=== PATIENT | male | born 1960 | race Caucasian/White ===

== ENCOUNTER → 2018-12-09 11:25 | Outpatient (CLI) | payer OTHER, BC, SELFPAY | PROVIDERS: Family Provider Nurse Practitioner Primary Care; PCP Nurse Practitioner Primary Care; Referring Provider Urology; Visit Provider Urology | DX: Z12.5 Encounter for screening for malignant neoplasm of prostate (principal) | CPT/HCPCS: 36415; 84153; G0103 ==

== ENCOUNTER → 2019-04-12 | Outpatient (CLI) | payer BC, SELFPAY ==
[2019-04-12 12:34] LABS: Absolute Lymphocyte Count 1.37 X10^3/ul (0.83-4.51); Absolute Neutrophil Count 4.2 X10^3/uL (2.0-7.7); Basophil# 0.05 X10^3/uL; Basophil% 0.7 % (0-1); Eosinophil# 0.42 X10^3/uL; Hematocrit 43.9 % (40-54); Hemoglobin 14.4 g/dl (13.0-16.5); Lymphocyte # 1.37 X10^3/ul (4.0); Lymphocyte % 19.5 % (19-41); Mean Corp Hgb Conc 32.8 g/gl (32-36); Mean Corpuscular Hgb 30.1 pg (27.0-32.0); Mean Corpuscular Volume 91.6 fL (80-94); Mean Platelet Vol. 9.7 fl (6.2-12.0); Monocyte# 0.94 X10^3/uL; Monocyte% 13.4 % (0-10); Platelet Count 271 K/mm3 (150-450); RBC Distribution Width CV 13.3 % (11.6-14.6); RBC Distribution Width SD 44.2 fl (35.1-43.9); Red Blood Count 4.79 M/mm3 (4.6-6.2)
[2019-04-12 12:42] LABS: POSITIVE COUNT NO; POSITIVE DIFFERENTIAL NO; POSITIVE MORPHOLOGY NO
[2019-04-12 13:00] LABS: Vitamin B12 507 pg/mL (211-911); Vitamin D,25 Hydroxy 24.4 ng/mL (29.95-100.01)
[2019-04-12 13:17] LABS: ALB/GLOB Ratio 1.1 RATIO (0.9-2.4); AST(SGOT) 28 U/L (15-37); Alanine Aminotransfer ALT/SGPT 50 U/L (16-61); Albumin, Serum 3.7 g/dL (3.2-5.0); Alkaline Phosphatase 94 U/L (45-117); Anion Gap 11 (5-15); BUN 20 mg/dL (7-18); BUN/Creat Ratio 21.1 RATIO (10-20); Calcium,Total 9.5 mg/dL (8.5-10.1); Chloride 106 mmol/L (98-107); Cholesterol 166 mg/dL (200); Creatinine, Serum 0.95 mg/dL (0.70-1.30); EST Glomerular Filtration Rate 87 mL/min (>60); Est Glom Filt Rate - Afr Amer 105 mL/min (>60); Globulin 3.4 g/dL (2.2-4.2); Glucose 104 mg/dL (74-106); High Density Lipoprotein 40 mg/dL; Potassium 4.3 mmol/L (3.5-5.1); Protein, Total 7.1 g/dL (6.4-8.2); Sodium Level 140 mmol/L (136-145); T4 Free Direct 1.13 ng/dL (0.76-1.46); Thyroid Stim Hormone (TSH) 1.33 uIU/mL (0.358-3.74); Triglycerides 111 mg/dL; Very Low Density Lipoprotein 22 mg/dL (5-40)
== END | disposition home or self-care (01) ==
LOC: MFPLAB 09:33
PROVIDERS: Family Provider Nurse Practitioner Primary Care; PCP Nurse Practitioner Primary Care; Visit Provider Family Medicine
DX: I10 Essential (primary) hypertension (principal); E66.9 Obesity, unspecified; E04.1 Nontoxic single thyroid nodule; R53.83 Other fatigue
CPT/HCPCS: 36415; 80053; 80061; 82306; 82607; 84439; 84443; 85025

== ENCOUNTER → 2019-04-14 | Outpatient (CLI) | payer OTHER, BC, SELFPAY ==
--- NOTE | 2019-04-14 12:22 | US_ITS ---
STUDY: THYROID ULTRASOUND REASON FOR EXAM: Male, 58 years old. Nodule TECHNIQUE: Ultrasound evaluation of the thyroid was performed with real-time and static alvarez-scale imaging. COMPARISON: None. FINDINGS: RIGHT LOBE: The right lobe of the thyroid gland measures 4.6 x 1.8 x 1.8 cm. There is a homogeneous echotexture. There is a 7 mm solid nodule in the right lower pole. LEFT LOBE: The left lobe of the thyroid gland measures 4.6 x 1.5 x 2.1 cm. There is a homogeneous echotexture. There is a 6.5 mm solid nodule in the right lower pole. ISTHMUS: The isthmus measures 4 mm . The regional lymph nodes are normal. US/Thyroid IMPRESSION: Bilateral subcentimeter nodules for which annual follow-up should be adequate. Electronically Signed: Maynor Cosby MD at 16:10 EDT , Service support ,
== END | disposition home or self-care (01) ==
LOC: US 12:21
PROVIDERS: Family Provider Family Medicine; PCP Family Medicine; Referring Provider Family Medicine; Visit Provider Family Medicine
DX: E04.1 Nontoxic single thyroid nodule (principal)
CPT/HCPCS: 76536

== ENCOUNTER → 2019-05-12 | Outpatient (CLI) | payer OTHER, BC, SELFPAY ==
[2019-05-12 12:39] LABS: Hemoglobin A1c 5.8 % (4.2-6.3)
== END | disposition home or self-care (01) ==
LOC: MFPLAB 10:41
PROVIDERS: Family Provider Family Medicine; PCP Family Medicine; Referring Provider Family Medicine; Visit Provider Family Medicine
DX: R73.09 Other abnormal glucose (principal)
CPT/HCPCS: 36415; 83036

== ENCOUNTER 2020-01-12 20:59 | Emergency (ER) | payer OTHER, BC, SELFPAY ==
[2020-01-12 21:01] VITALS: BP 157/82; PULSE 74; RESP 16; TEMP 36.6; O2SAT 94; BMI 36.6
--- NOTE | 2020-01-12 21:35 | RAD_ITS ---
STUDY: X-RAY - RIGHT HAND REASON FOR EXAM: Male, 59 years old. PT TRIPPED OVER A BOX FAN AT WORK AND INJURED THE RIGHT HAND THAT HAS PREVIOUS SURGERIES ON IT; PAIN IN THUMB. TECHNIQUE: 3 view(s) of the hand. COMPARISON: None. FINDINGS: There is significant radiocarpal osteoarthrosis with this articular and osteochondral defects of the distal radius. There is bony fusion of the carpal bones with metallic plate and screws. There is soft tissue edema of the thumb. There are multiple 2 mm and smaller ossific densities adjacent to the distal aspect of the first metacarpal. 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 This should be correlated with point tenderness. Small foreign bodies also cannot be excluded Electronically Signed: [place], at 21:56 EDT Tel , Service support ,
--- NOTE | 2020-01-12 22:19 | ED.VISSUMM ---
- ER Visit Summary Date of Service: 01/12/20 Chief Complaint: Thumb injury History of Present Illness: The patient is a 59 M who sustained a mechanical fall and injured his right thumb. He has a history of wrist fusion and thumb surgery remotely. Physical Examination: Afebrile and vital signs unremarkable. Some tenderness and edema at the base of the thumb. Skin intact. Neurovascular intact distally. Otherwise exam unremarkable. Test Results: X-ray show possible tiny avulsion fractures at the area of his tenderness at the base of the proximal phalanx. Emergency Department Course and Treatment: Patient initially declined pain medicine. Ice was applied. X-rays as above. He was placed in a thumb spica splint and referred to his hand surgeon for follow-up. Workman's Compensation paperwork was completed. Treatment Plan: As above Disposition: Discharge Impression: Fracture right thumb This note was generated with [employer] dictation software. It may contain incorrect words, spelling, and punctuation that were not noted in review of the chart prior to signing ED Disposition - Plan for ED Patient: Referrals: Rajendra Gentile MD [Primary Care Provider] -
--- NOTE | 2020-01-12 22:21 | ED.DEP ---
ED Disposition - Plan for ED Patient: Instructions: ED THUMB FRACTURE Prescriptions: Oxycodone HCl/Acetaminophen [Percocet 5/325] 1 tab PO Q6H PRN PRN 3 Days #12 tab PRN Reason: Pain Prescription Printed Referrals: [facility] [GROUP OF PHYSICIANS] - Additional Instructions: follow up with your hand surgeon
[2020-01-12] MEDS: HYDROcodone Bitartrate/Apap 5/325 Tablet PO (22:30)
[2020-01-12 22:35] VITALS: BP 149/60; PULSE 79; RESP 18; O2SAT 97
== END 2020-01-12 22:36 | disposition home or self-care (01) ==
PROVIDERS: Emergency Provider Emergency Medicine; PCP Family Medicine
DX: S62.511A Displaced fracture of proximal phalanx of right thumb, initial encounter for closed fracture (principal); W01.0XXA Fall on same level from slipping, tripping and stumbling without subsequent striking against object, initial encounter; Y93.9 Activity, unspecified; Y92.9 Unspecified place or not applicable; Y99.0 Civilian activity done for income or pay; Z87.891 Personal history of nicotine dependence
CPT/HCPCS: 73130; 99283

== ENCOUNTER → 2020-02-28 | Outpatient (CLI) | payer OTHER, BC, SELFPAY ==
[2020-02-28 12:03] LABS: Absolute Lymphocyte Count 1.63 X10^3/uL (0.83-4.51); Absolute Neutrophil Count 4.6 X10^3/uL (2.0-7.7); Basophil# 0.07 X10^3/uL; Basophil% 0.9 % (0-1); Eosinophils% 6.6 % (0-5); Hematocrit 44.2 % (40-54); Hemoglobin 14.1 g/dL (13.0-16.5); Lymphocyte # 1.63 X10^3/ul (4.0); Lymphocyte % 21.4 % (19-41); Mean Corp Hgb Conc 31.9 g/dL (32-36); Mean Corpuscular Hgb 30.2 pg (27.0-32.0); Mean Corpuscular Volume 94.6 fL (80-94); Mean Platelet Vol. 9.8 fl (6.2-12.0); Monocyte# 0.82 X10^3/uL; Monocyte% 10.7 % (0-10); NRBC Flagged by Analyzer 0 % (0-5); Neutrophil # 4.55 X10^3/uL (2.7-7.7); Neutrophil % 59.6 % (47-70); Platelet Count 260 K/mm3 (150-450); RBC Distribution Width SD 44.8 fl (35.1-43.9); Red Blood Count 4.67 M/mm3 (4.6-6.2); White Blood Count 7.6 K/mm3 (4.4-11.0)
[2020-02-28 12:17] LABS: ALB/GLOB Ratio 1.1 RATIO (0.9-2.4); AST(SGOT) 27 U/L (15-37); Alanine Aminotransfer ALT/SGPT 46 U/L (16-61); Albumin, Serum 3.4 g/dL (3.2-5.0); Alkaline Phosphatase 96 U/L (45-117); Anion Gap 6 (5-15); BUN 16 mg/dL (7-18); BUN/Creat Ratio 18.2 RATIO (10-20); Calcium,Total 9.3 mg/dL (8.5-10.1); Chloride 109 mmol/L (98-107); Creatinine, Serum 0.88 mg/dL (0.70-1.30); EST Glomerular Filtration Rate 95 mL/min (>60); Est Glom Filt Rate - Afr Amer 115 mL/min (>60); Globulin 3.2 g/dL (2.2-4.2); Glucose 106 mg/dL (74-106); Potassium 4.5 mmol/L (3.5-5.1); Protein, Total 6.6 g/dL (6.4-8.2); Sodium Level 140 mmol/L (136-145)
[2020-02-28 12:19] LABS: Hemoglobin A1c 6.2 % (4.2-6.3)
== END | disposition home or self-care (01) ==
LOC: LABSPEC 08:33
PROVIDERS: PCP Family Medicine; Visit Provider Family Medicine
DX: I10 Essential (primary) hypertension (principal); R73.02 Impaired glucose tolerance (oral); E55.9 Vitamin D deficiency, unspecified
CPT/HCPCS: 36415; 80053; 82306; 83036; 85025

== ENCOUNTER → 2020-03-02 | Outpatient (CLI) | payer OTHER, BC, SELFPAY ==
[2020-03-02 16:02] LABS: Vitamin D,25 Hydroxy 32.1 ng/mL
== END | disposition home or self-care (01) ==
LOC: MFPLAB 14:12
PROVIDERS: PCP Family Medicine; Visit Provider Family Medicine
DX: E55.9 Vitamin D deficiency, unspecified (principal)
CPT/HCPCS: 82306

== ENCOUNTER → 2020-03-22 | Outpatient (CLI) | payer OTHER, BC, SELFPAY ==
--- NOTE | 2020-03-22 08:48 | US_ITS ---
STUDY: THYROID ULTRASOUND REASON FOR EXAM: Male, 59 years old. NODULES TECHNIQUE: Ultrasound evaluation of the thyroid was performed with real-time and static alvarez-scale imaging. COMPARISON: Comparison is made with prior examination dated April 14, 2019. FINDINGS: RIGHT LOBE: The right lobe of the thyroid gland measures 5 cm x 1.9 cm x 1.5 cm. There is a homogeneous echotexture. There is a 6 mm x 5 mm x 4 mm hypoechoic solid nodule in the lower pole of the right lobe. There is evidence of intranodular vascularization. There has been no change. LEFT LOBE: The left lobe of the thyroid gland measures 4.8 cm x 1.3 cm x 1.6 cm. There is a homogeneous echotexture. There is a 6 mm x 5 mm x 4 mm hypoechoic solid nodule in the midpole of the left lobe with internal nodular vascularization. This is unchanged. ISTHMUS: The isthmus measures 2.0 mm. The regional lymph nodes are normal. US/Thyroid IMPRESSION: Stable examination with solitary subcentimeter nodule in the right and left lobes of the thyroid. Electronically Signed: Raul Cha, at 9:55 EDT , Service support ,
== END | disposition home or self-care (01) ==
LOC: US 08:43
PROVIDERS: PCP Family Medicine; Referring Provider Family Medicine; Visit Provider Family Medicine
DX: E04.1 Nontoxic single thyroid nodule (principal)
CPT/HCPCS: 76536

== ENCOUNTER → 2020-08-09 | Outpatient (CLI) | payer OTHER, BC, SELFPAY | END | disposition home or self-care (01) | LOC: LABSPEC 10:54 | PROVIDERS: PCP Family Medicine; Referring Provider Family Medicine; Visit Provider Family Medicine | DX: R35.0 Frequency of micturition (principal) | CPT/HCPCS: 87086 ==

== ENCOUNTER → 2021-01-04 09:25 | Outpatient (CLI) | payer OTHER, SELFPAY ==
[2021-01-04 10:14] LABS: Absolute Lymphocyte Count 1.82 X10^3/uL (0.83-4.51); Absolute Neutrophil Count 4.7 X10^3/uL (2.0-7.7); Basophil# 0.05 X10^3/uL; Basophil% 0.6 % (0-1); Eosinophil# 0.47 X10^3/uL; Eosinophils% 5.9 % (0-5); Hematocrit 45.9 % (40-54); Hemoglobin 14.8 g/dL (13.0-16.5); Lymphocyte # 1.82 X10^3/ul (4.0); Mean Corp Hgb Conc 32.2 g/dL (32-36); Mean Corpuscular Volume 93.1 fL (80-94); Mean Platelet Vol. 9.3 fl (6.2-12.0); Monocyte# 0.88 X10^3/uL; Monocyte% 11.1 % (0-10); NRBC Flagged by Analyzer 0 % (0-5); Neutrophil # 4.65 X10^3/uL (2.7-7.7); Neutrophil % 58.8 % (47-70); Platelet Count 285 K/mm3 (150-450); RBC Distribution Width CV 12.8 % (11.6-14.6); RBC Distribution Width SD 43.8 fl (35.1-43.9); Red Blood Count 4.93 M/mm3 (4.6-6.2); White Blood Count 7.9 K/mm3 (4.4-11.0)
[2021-01-04 10:45] LABS: Hemoglobin A1c 5.5 % (3.8-5.6)
[2021-01-04 10:53] LABS: Vitamin D,25 Hydroxy 31.4 ng/mL
[2021-01-04 11:05] LABS: ALB/GLOB Ratio 1.2 RATIO (0.9-2.4); AST(SGOT) 25 U/L (15-37); Alanine Aminotransfer ALT/SGPT 49 U/L (16-61); Albumin, Serum 3.8 g/dL (3.2-5.0); Alkaline Phosphatase 109 U/L (45-117); Anion Gap 7 (5-15); BUN 15 mg/dL (7-18); BUN/Creat Ratio 16.6 RATIO (10-20); Calcium,Total 9.7 mg/dL (8.5-10.1); Chloride 103 mmol/L (98-107); EST Glomerular Filtration Rate 91 mL/min (>60); Est Glom Filt Rate - Afr Amer 110 mL/min (>60); Globulin 3.3 g/dL (2.2-4.2); Glucose 109 mg/dL (74-106); Protein, Total 7.1 g/dL (6.4-8.2); Sodium Level 136 mmol/L (136-145); Thyroid Stim Hormone (TSH) 3.01 uIU/mL (0.358-3.74)
== END ==
PROVIDERS: PCP Family Medicine; Referring Provider Family Medicine; Visit Provider Family Medicine
DX: I10 Essential (primary) hypertension (principal); E55.9 Vitamin D deficiency, unspecified; E04.1 Nontoxic single thyroid nodule; R73.02 Impaired glucose tolerance (oral)
CPT/HCPCS: 36415; 80053; 82306; 83036; 84443; 85025

== ENCOUNTER → 2021-08-20 12:31 | Outpatient (CLI) | payer OTHER, SELFPAY | PROVIDERS: PCP Family Medicine; Referring Provider Family Medicine; Visit Provider Family Medicine | DX: Z12.5 Encounter for screening for malignant neoplasm of prostate (principal) | CPT/HCPCS: 36415; 84153; G0103 ==

== ENCOUNTER 2021-10-25 10:27 | Outpatient (CLI) | payer OTHER, BC, SELFPAY ==
[2021-10-25 10:39] LABS: Bacteria 0 SEEN /hpf (None Seen); Mucous, Urine 0 SEEN /hpf (<or=2+); Red Blood Cells-Urine 0 SEEN /hpf (0-5); White Blood Cells 0 SEEN /hpf (0-5)
[2021-10-25 12:38] LABS: Absolute Lymphocyte Count 1.64 X10^3/uL (0.83-4.51); Absolute Neutrophil Count 5.1 X10^3/uL (2.0-7.7); Basophil# 0.05 X10^3/uL; Basophil% 0.6 % (0-1); Color, Urine Yellow (Yellow); Eosinophil# 0.36 X10^3/uL; Eosinophils% 4.5 % (0-5); Glucose, Dipstick Normal (Normal); Hematocrit 44.6 % (40-54); Hemoglobin 14.3 g/dL (13.0-16.5); Ketone-Dipstick Negative (Negative); Leukocyte Esterase-Dipstick Negative /ul (Negative); Lymphocyte # 1.64 X10^3/ul (0.83-4.51); Lymphocyte % 20.3 % (19-41); Mean Corp Hgb Conc 32.1 g/dL (32-36); Mean Corpuscular Hgb 30.2 pg (27.0-32.0); Mean Corpuscular Volume 94.3 fL (80-94); Mean Platelet Vol. 9.4 fl (6.2-12.0); Monocyte# 0.87 X10^3/uL; Monocyte% 10.8 % (0-10); NRBC Flagged by Analyzer 0 % (0-5); Neutrophil # 5.11 X10^3/uL (2.7-7.7); Neutrophil % 63.3 % (47-70); Nitrite-Dipstick Negative (Negative); Occult Blood-Urine Negative /ul (Negative); Platelet Count 285 K/mm3 (150-450); Protein-Dipstick Negative (Negative); RBC Distribution Width CV 12.9 % (11.6-14.6); RBC Distribution Width SD 44.9 fl (35.1-43.9); Red Blood Count 4.73 M/mm3 (4.6-6.2); Urine Bilirubin Dipstick Negative (Negative); Urine Clarity Clear (Clear); Urine Urobilinogen Normal (Normal); White Blood Count 8.1 K/mm3 (4.4-11.0)
[2021-10-25 12:45] LABS: Squamous Epithelial Cells - UA 0-5 SEEN /hpf (0-5)
[2021-10-25 13:15] LABS: Vitamin D,25 Hydroxy 39.1 ng/mL
[2021-10-25 13:23] LABS: ALB/GLOB Ratio 1.2 RATIO (0.9-2.4); AST(SGOT) 18 U/L (15-37); Alanine Aminotransfer ALT/SGPT 34 U/L (16-61); Albumin, Serum 3.8 g/dL (3.2-5.0); Alkaline Phosphatase 95 U/L (45-117); Anion Gap 6 (5-15); BUN 21 mg/dL (7-18); BUN/Creat Ratio 22.1 RATIO (10-20); Chloride 105 mmol/L (98-107); Cholesterol 177 mg/dL (200); Creatinine, Serum 0.95 mg/dL (0.70-1.30); EST Glomerular Filtration Rate 86 mL/min (>60); Est Glom Filt Rate - Afr Amer 104 mL/min (>60); Globulin 3.3 g/dL (2.2-4.2); Glucose 110 mg/dL (74-106); High Density Lipoprotein 38 mg/dL; Potassium 4.4 mmol/L (3.5-5.1); Protein, Total 7.1 g/dL (6.4-8.2); Sodium Level 138 mmol/L (136-145); Triglycerides 112 mg/dL; Very Low Density Lipoprotein 22 mg/dL (5-40)
[2021-10-25 13:26] LABS: Hemoglobin A1c 5.3 % (3.8-5.6)
== END 2021-10-25 23:59 | disposition short-term general hospital (02) ==
LOC: MFPLAB 10:30
PROVIDERS: PCP Family Medicine; Referring Provider Family Medicine; Visit Provider Family Medicine
DX: I10 Essential (primary) hypertension (principal); R73.02 Impaired glucose tolerance (oral); E55.9 Vitamin D deficiency, unspecified
CPT/HCPCS: 36415; 80053; 80061; 81001; 82306; 83036; 85025

== ENCOUNTER 2021-10-31 12:57 | Outpatient (CLI) | payer OTHER, BC, SELFPAY ==
--- NOTE | 2021-10-31 13:02 | US_ITS ---
STUDY: THYROID ULTRASOUND REASON FOR EXAM: Male, 61 years old. NODULE TECHNIQUE: Ultrasound evaluation of the thyroid was performed with real-time and static alvarez-scale imaging. COMPARISON: Comparison is made with prior study dated 03/22/2020. FINDINGS: RIGHT LOBE: The right lobe of the thyroid gland measures 4.5 cm x 2 cm x 1.9 cm. There is a homogeneous echotexture. There is an 8 mm x 6 mm x 5 mm solid hypoechoic nodule in the lower pole. This is unchanged. LEFT LOBE: The left lobe of the thyroid gland measures 4.8 cm x 1.4 cm x 1.7 cm. There is a homogeneous echotexture. There is a 7 mm x 6 mm x 6 mm solid hypoechoic nodule in the upper pole. This is essentially unchanged. ISTHMUS: The isthmus measures 3.1 mm. The regional lymph nodes are normal. US/Thyroid IMPRESSION: Stable examination with bilateral subcentimeter solid thyroid nodule. Electronically Signed: Raul Cha MD at 14:47 EST , Service support ,
== END 2021-10-31 23:59 | disposition short-term general hospital (02) ==
LOC: US 12:59
PROVIDERS: PCP Family Medicine; Referring Provider Family Medicine; Visit Provider Family Medicine
DX: E04.1 Nontoxic single thyroid nodule (principal)
CPT/HCPCS: 76536

== ENCOUNTER 2022-01-23 10:11 | Outpatient (CLI) | payer OTHER, BC, SELFPAY ==
--- NOTE | 2022-01-23 10:24 | RAD_ITS ---
STUDY: X-RAY CHEST REASON FOR EXAM: Male, 61 years old. RHONCHI TECHNIQUE: PA and lateral views of the chest. COMPARISON: None. FINDINGS: Lungs are hyperexpanded with increased retrosternal clear space but no airspace consolidation. There is no demonstrated pleural abnormality. Normal size heart. Normal mediastinum and kelly. Normal visualized pulmonary arteries. Normal visualized aortic arch and descending thoracic aorta. Normal visualized thoracic spine. Normal visualized ribs, clavicles, and shoulders. There is no demonstrated abnormality of the visualized soft tissue structures of the upper abdomen. RAD/Chest PA and Lateral IMPRESSION: No airspace consolidation or pleural effusion. Hyperinflation suggesting chronic obstructive airway disease. Electronically Signed: Don Whitley MD ([place]) at 7:37 EDT ,
[2022-01-23 12:04] LABS: Absolute Lymphocyte Count 1.37 X10^3/uL (0.83-4.51); Absolute Neutrophil Count 4.3 X10^3/uL (2.0-7.7); Basophil# 0.06 X10^3/uL; Basophil% 0.9 % (0-1); Eosinophils% 5.9 % (0-5); Hematocrit 43.4 % (40-54); Hemoglobin 14.1 g/dL (13.0-16.5); Lymphocyte # 1.37 X10^3/ul (0.83-4.51); Lymphocyte % 20.1 % (19-41); Mean Corp Hgb Conc 32.5 g/dL (32-36); Mean Corpuscular Hgb 31.1 pg (27.0-32.0); Mean Corpuscular Volume 95.6 fL (80-94); Mean Platelet Vol. 9.6 fl (6.2-12.0); Monocyte# 0.66 X10^3/uL; Monocyte% 9.7 % (0-10); NRBC Flagged by Analyzer 0 % (0-5); Neutrophil % 63.1 % (47-70); Platelet Count 237 K/mm3 (150-450); RBC Distribution Width SD 45.7 fl (35.1-43.9); Red Blood Count 4.54 M/mm3 (4.6-6.2); White Blood Count 6.8 K/mm3 (4.4-11.0)
[2022-01-23 12:21] LABS: Hemoglobin A1c 5.3 % (3.8-5.6)
[2022-01-23 12:26] LABS: ALB/GLOB Ratio 1.3 RATIO (0.9-2.4); AST(SGOT) 20 U/L (15-37); Alanine Aminotransfer ALT/SGPT 34 U/L (16-61); Albumin, Serum 3.8 g/dL (3.2-5.0); Alkaline Phosphatase 82 U/L (45-117); Anion Gap 3 (5-15); BUN 19 mg/dL (7-18); Calcium,Total 9.4 mg/dL (8.5-10.1); Chloride 108 mmol/L (98-107); Cholesterol 167 mg/dL (200); Creatinine, Serum 0.79 mg/dL (0.70-1.30); EST Glomerular Filtration Rate 106 mL/min (>60); Est Glom Filt Rate - Afr Amer 128 mL/min (>60); Glucose 115 mg/dL (74-106); High Density Lipoprotein 40 mg/dL; Potassium 4.2 mmol/L (3.5-5.1); Protein, Total 6.8 g/dL (6.4-8.2); Sodium Level 137 mmol/L (136-145); Thyroid Stim Hormone (TSH) 1.44 uIU/mL (0.358-3.74); Triglycerides 70 mg/dL; Very Low Density Lipoprotein 14 mg/dL (5-40)
== END 2022-01-23 23:59 | disposition home or self-care (01) ==
PROVIDERS: PCP Family Medicine; Referring Provider Family Medicine; Visit Provider Family Medicine
DX: R09.89 Other specified symptoms and signs involving the circulatory and respiratory systems (principal); I10 Essential (primary) hypertension; R73.02 Impaired glucose tolerance (oral)
CPT/HCPCS: 36415; 71046; 80053; 80061; 83036; 84443; 85025

== ENCOUNTER → 2022-05-20 | Outpatient (CLI) | payer OTHER, BC, SELFPAY ==
[2022-05-20 12:41] LABS: Absolute Lymphocyte Count 1.79 X10^3/uL (0.83-4.51); Absolute Neutrophil Count 4.3 X10^3/uL (2.0-7.7); Basophil# 0.06 X10^3/uL; Basophil% 0.8 % (0-1); Eosinophil# 0.72 X10^3/uL; Eosinophils% 9.4 % (0-5); Hematocrit 43.5 % (40-54); Hemoglobin 13.8 g/dL (13.0-16.5); Lymphocyte # 1.79 X10^3/ul (0.83-4.51); Lymphocyte % 23.3 % (19-41); Mean Corp Hgb Conc 31.7 g/dL (32-36); Mean Corpuscular Hgb 30.7 pg (27.0-32.0); Mean Corpuscular Volume 96.7 fL (80-94); Mean Platelet Vol. 9.7 fl (6.2-12.0); Monocyte# 0.82 X10^3/uL; Monocyte% 10.7 % (0-10); NRBC Flagged by Analyzer 0 % (0-5); Neutrophil # 4.26 X10^3/uL (2.7-7.7); Neutrophil % 55.5 % (47-70); Platelet Count 271 K/mm3 (150-450); RBC Distribution Width CV 13.2 % (11.6-14.6); RBC Distribution Width SD 47.4 fl (35.1-43.9); White Blood Count 7.7 K/mm3 (4.4-11.0)
[2022-05-20 12:56] LABS: Vitamin D,25 Hydroxy 56.6 ng/mL
[2022-05-20 12:57] LABS: Hemoglobin A1c 5.3 % (3.8-5.6)
[2022-05-20 13:03] LABS: ALB/GLOB Ratio 1.1 RATIO (0.9-2.4); AST(SGOT) 21 U/L (15-37); Alanine Aminotransfer ALT/SGPT 31 U/L (16-61); Albumin, Serum 3.5 g/dL (3.2-5.0); Alkaline Phosphatase 80 U/L (45-117); Anion Gap 6 (5-15); BUN 20 mg/dL (7-18); BUN/Creat Ratio 20.9 RATIO (10-20); Calcium,Total 9.6 mg/dL (8.5-10.1); Chloride 107 mmol/L (98-107); Cholesterol 174 mg/dL (200); Creatinine, Serum 0.96 mg/dL (0.70-1.30); EST Glomerular Filtration Rate 85 mL/min (>60); Est Glom Filt Rate - Afr Amer 103 mL/min (>60); Globulin 3.1 g/dL (2.2-4.2); Glucose 110 mg/dL (74-106); High Density Lipoprotein 39 mg/dL; Potassium 4.4 mmol/L (3.5-5.1); Protein, Total 6.6 g/dL (6.4-8.2); Sodium Level 138 mmol/L (136-145); Thyroid Stim Hormone (TSH) 1.34 uIU/mL (0.358-3.74); Triglycerides 102 mg/dL; Very Low Density Lipoprotein 20 mg/dL (5-40)
== END | disposition home or self-care (01) ==
LOC: MFPLAB 10:19
PROVIDERS: PCP Family Medicine; Referring Provider Family Medicine; Visit Provider Family Medicine
DX: I10 Essential (primary) hypertension (principal); R73.02 Impaired glucose tolerance (oral); E55.9 Vitamin D deficiency, unspecified
CPT/HCPCS: 36415; 80053; 80061; 82306; 83036; 84443; 85025

== ENCOUNTER → 2022-11-18 | Outpatient (CLI) | payer OTHER, BC, SELFPAY ==
[2022-11-18 08:23] LABS: Bacteria 0 SEEN /hpf (None Seen); Red Blood Cells-Urine 0 SEEN /hpf (0-5); Squamous Epithelial Cells - UA 0 SEEN /hpf (0-5); White Blood Cells 0 SEEN /hpf (0-5)
[2022-11-18 10:07] LABS: Absolute Lymphocyte Count 1.75 X10^3/uL (0.83-4.51); Absolute Neutrophil Count 3.8 X10^3/uL (2.0-7.7); Basophil# 0.07 X10^3/uL; Eosinophil# 0.57 X10^3/uL; Eosinophils% 8.2 % (0-5); Hemoglobin 14.9 g/dL (13.0-16.5); Lymphocyte # 1.75 X10^3/ul (0.83-4.51); Lymphocyte % 25.3 % (19-41); Mean Corp Hgb Conc 31.7 g/dL (32-36); Mean Corpuscular Hgb 30.5 pg (27.0-32.0); Mean Corpuscular Volume 96.1 fL (80-94); Mean Platelet Vol. 9.4 fl (6.2-12.0); Monocyte# 0.68 X10^3/uL; Monocyte% 9.8 % (0-10); NRBC Flagged by Analyzer 0 % (0-5); Neutrophil # 3.81 X10^3/uL (2.7-7.7); Neutrophil % 55.1 % (47-70); Platelet Count 263 K/mm3 (150-450); RBC Distribution Width CV 13.1 % (11.6-14.6); RBC Distribution Width SD 46.5 fl (35.1-43.9); Red Blood Count 4.89 M/mm3 (4.6-6.2); White Blood Count 6.9 K/mm3 (4.4-11.0)
[2022-11-18 10:26] LABS: Hemoglobin A1c 5.5 % (3.8-5.6)
[2022-11-18 10:30] LABS: ALB/GLOB Ratio 1.3 RATIO (0.9-2.4); AST(SGOT) 20 U/L (15-37); Alanine Aminotransfer ALT/SGPT 34 U/L (16-61); Albumin, Serum 3.9 g/dL (3.2-5.0); Alkaline Phosphatase 76 U/L (45-117); Anion Gap 4 (5-15); BUN 16 mg/dL (7-18); BUN/Creat Ratio 19.2 RATIO (10-20); Calcium,Total 9.8 mg/dL (8.5-10.1); Chloride 108 mmol/L (98-107); Cholesterol 188 mg/dL (200); Creatinine, Serum 0.84 mg/dL (0.70-1.30); EST Glomerular Filtration Rate 99 mL/min (>60); Est Glom Filt Rate - Afr Amer 120 mL/min (>60); Glucose 101 mg/dL (74-106); High Density Lipoprotein 38 mg/dL; Potassium 4.3 mmol/L (3.5-5.1); Protein, Total 6.9 g/dL (6.4-8.2); Sodium Level 141 mmol/L (136-145); Thyroid Stim Hormone (TSH) 1.86 uIU/mL (0.358-3.74); Triglycerides 154 mg/dL; Very Low Density Lipoprotein 31 mg/dL (5-40)
[2022-11-18 10:38] LABS: Color, Urine Yellow (Yellow); Glucose, Dipstick Normal (Normal); Ketone-Dipstick Negative (Negative); Leukocyte Esterase-Dipstick Negative /ul (Negative); Nitrite-Dipstick Negative (Negative); Occult Blood-Urine Negative /ul (Negative); Protein-Dipstick Negative (Negative); Urine Bilirubin Dipstick Negative (Negative); Urine Clarity Clear (Clear); Urine Urobilinogen Normal (Normal)
[2022-11-18 10:56] LABS: Mucous, Urine 2+ /hpf (<or=2+)
== END | disposition home or self-care (01) ==
LOC: MFPLAB 08:16
PROVIDERS: PCP Family Medicine; Visit Provider Family Medicine
DX: I10 Essential (primary) hypertension (principal); R73.02 Impaired glucose tolerance (oral); E55.9 Vitamin D deficiency, unspecified
CPT/HCPCS: 36415; 80053; 80061; 81001; 82306; 83036; 84443; 85025

== ENCOUNTER → 2022-12-18 | Outpatient (CLI) | payer OTHER, BC, SELFPAY ==
--- NOTE | 2022-12-18 13:20 | US_ITS ---
INDICATION: THYROID NODULE EXAMINATION: Ultrasound US Thyroid (eg thyroid, parathyroid, parotid) TECHNIQUE: Cross scale and color doppler imaging was performed of the thyroid gland. COMPARISON: October 31, 2021. FINDINGS: RIGHT THYROID LOBE: 4.7 x 1.7 x 2.1 cm. Homogeneous echotexture with normal vascularity. [There is a lower pole 6 x 6 x 4 mm complex nodule. LEFT THYROID LOBE: 4.6 x 1.4 x 2.0 cm. Homogeneous echotexture with normal vascularity. [There is a mid thyroid 8 x 7 x 5 mm complex nodule. ISTHMUS: 4 mm. No thyroid nodules are present. US/Thyroid IMPRESSION: Bilateral complex nodules appear to be stable in size. Electronically Signed: Yordy Hong DO at 23:48 EST Reading Location ID and State: [facility] / [place] Tel [phone], Service support ,
== END | disposition home or self-care (01) ==
LOC: US 13:17
PROVIDERS: PCP Family Medicine; Visit Provider Family Medicine
DX: E04.1 Nontoxic single thyroid nodule (principal)
CPT/HCPCS: 76536

== ENCOUNTER 2023-03-06 13:31 | Observation (INO) | payer OTHER, BC, SELFPAY ==
--- NOTE | 2023-03-02 12:38 | EKG12_ITS ---
Test Reason : PRE-OP Blood Pressure : / mmHG Vent. Rate : 070 BPM Atrial Rate : 070 BPM P-R Int : 154 ms QRS Dur : 102 ms QT Int : 396 ms P-R-T Axes : 055 024 051 degrees QTc Int : 427 ms Normal sinus rhythm Normal ECG Confirmed by TIERA REED, CARLOS A ([id number]), copy editor JESSICA MALONEY ([id number]) on 03/03/2023 8:16:45 AM Referred By: Huy Dyer Confirmed By:CARLOS A MOTT MD
[2023-03-02 13:03] LABS: Hematocrit 42.8 % (40-54); Hemoglobin 13.9 g/dL (13.0-16.5); Mean Corp Hgb Conc 32.5 g/dL (32-36); Mean Corpuscular Hgb 31.2 pg (27.0-32.0); Mean Platelet Vol. 9.1 fl (6.2-12.0); Platelet Count 250 K/mm3 (150-450); RBC Distribution Width CV 12.8 % (11.6-14.6); RBC Distribution Width SD 45.1 fl (35.1-43.9); Red Blood Count 4.46 M/mm3 (4.6-6.2); White Blood Count 7.8 K/mm3 (4.4-11.0)
[2023-03-06] VITALS (8 sets, daily range): BP systolic 114–139; BP diastolic 58–75; PULSE 62–77; RESP 16; TEMP 36.3–37.1; O2SAT 94–99; BMI 32.3
[2023-03-06] MEDS: Lactated Ringers 1,000 ML 15 ML IV (11:41)
--- NOTE | 2023-03-06 13:00 | PROS_PTH ---
PATIENT: MAXIMINO GILMORE LOC: MS3 U#:[id number] AGE/SX: 62/M ROOM: [facility] [place] RE03/06/[address]: Dr. Huy Dyer MD : [id number] BED: 1 DIS: 03/07/2023 SPEC #: [id number] RECD: 03/06/23 14:35 STATUS: SRINIVASA LUKE #: [id number] EUGENE: 03/06/23 13:[address]: Huy Dyer DEPT: SURGICAL PATHOLOGY RECD BY: Shira Carreno ENTERED: 03/09/23 08:19 SP TYPE: TURP OTHR DR: Dr. Rajendra Gentile MD Tissues: Prostate, NOS Procedures: Surgery Specimen Level IV HEADER OPERATION: Cysto, TUR prostate, Olympus PRE-OP DIAGNOSIS: BPH with lower urinary tract symptoms, frequency of micturition, poor urinary stream TISSUE SUBMITTED: Prostate chips MICROSCOPIC DIAGNOSIS Prostate, transurethral resection: Benign nodular hyperplasia, glandular and stromal types. Chronic inflammation. AM:yohan 03/10/2023 MICROSCOPIC DESCRIPTION Slides are reviewed. GROSS DESCRIPTION Received is one container labeled with the patient's name and designated prostate chips. The specimen consists of multiple irregular fragments of pink-levin, rubbery, soft tissue that in aggregate weigh 8.6 gm and measure in aggregate 4.5 x 4.5 x 1.5 cm. A few fragments of black stones are also noted in the container measuring <0.1 to 0.2 cm in greatest dimension. The entire specimen is submitted in eight cassettes. Stones are for gross identification only. / YAQUELIN:yohan 03/09/2023 TC:3 CPT: 74768
[2023-03-06] MEDS: Lubricating Jelly 60 GM Tube 30 GM ×2 (13:22→14:45)
--- NOTE | 2023-03-06 13:32 | DCINST_ITS ---
Discharge Instructions Diet Discharge Diet: No restrictions, Light diet - advance as tolerated and Soft diet Activity Discharge Activity: Return to Normal Activity Dressing / Incision Call your doctor if your incision/area has: Continuous Slow Oozing Cleanse incision/area with: Soap & Water Follow Up Care Please Follow Up With: Huy Dyer MD When: 2 weeks Test Results: Test results from this visit will be discussed in further detail at your follow- up appointment, if applicable. Discharge Plan Admission Primary Reason for Your Visit: TURP Attending Provider: Huy Dyer Primary Care Provider: Rajendra Gentile Instructions Patient Instructions: TURP, TURP Home Recovery, TURP Hospital Recovery Discharge Orders/Prescriptions Prescriptions: New ciprofloxacin HCl [Cipro] 500 mg tablet 500 mg PO BID Qty: 10 0RF Continued famotidine 20 MG tablet 20 mg PO DAILY losartan 100 MG tablet 100 mg PO DAILY alfuzosin 10 MG tablet extended release 24 hr 10 mg PO DAILY xtoao-aeepm-6-wks-anb-jewmlv 1 EACH capsule 1 ea PO DAILY gd-vdu-jrbot-ywfzp-soz-oxqt177 1 EACH tablet 1 ea PO DAILY finasteride 5 mg Tablet 5 mg PO DAILY gabapentin 900 mg Tablet Extended Release 24 Hr 900 mg PO 2030,2300 Held aspirin 81 MG tablet,delayed release (DR/EC) 81 mg PO DAILY Hold Instructions: Resume on 03/20/23. Referrals / Follow Up: Huy Dyer MD [Med Staff - Active Staff] - Rajendra Gentile MD [Primary Care Provider] - Disposition Disposition (needs filled in before D/C Order can be placed): Home, Self Care
--- NOTE | 2023-03-06 13:32 | PCM.HP.STD ---
HPI - General HPI Narrative MAXIMINO GILMORE, is a 62 M who presents for a TURP has BPH with outlet obstuction. PFSH Medical History (Updated 02/27/23 @ 10:17 by Maria Eugenia Francis) Alcohol use Arthritis Back pain Former smoker Gastric reflux History of edema Hypertension Loss of hearing Prostate disease Restless legs Thyroid disease Wears glasses Home Medications alfuzosin 10 mg tablet,extended release 24 hr 10 mg PO DAILY 01/12/20 [History Last Taken Unknown] aspirin 81 mg tablet,delayed release 81 mg PO DAILY 01/12/20 [History Last Taken 02/23/23] famotidine 20 mg tablet 20 mg PO DAILY 01/12/20 [History Last Taken 03/06/23] krill bpu-ty-6-ocq-qvt-iahcnjkoutvum 500 mg-115 mg-30 mg-64 mg capsule 1 ea PO DAILY 01/12/20 [History Last Taken 02/27/23] losartan 100 mg tablet 100 mg PO DAILY 01/12/20 [History Last Taken 03/06/23] kmaetctc-etk-tjxsp 200 mcg-lycop 175 mcg-lutei 250 mcg-herb 178 tablet 1 ea PO DAILY 01/12/20 [History Last Taken Unknown] finasteride 5 mg tablet 5 mg PO DAILY 02/27/23 [History Last Taken Unknown] gabapentin 900 mg tablet,extended release 24 hr 900 mg PO 2030,2300 02/27/23 [History Last Taken Unknown] ciprofloxacin HCl 500 mg tablet (Cipro) 500 mg PO BID #10 tabs 03/06/23 [Rx Last Taken Unknown] Allergy/AdvReac Type Severity Reaction Status Date / Time naproxen [From Naprosyn] AdvReac Chest Verified 03/06/23 11:39 tightness Surgical History (Updated 02/27/23 @ 10:17 by Maria Eugenia Francis) History of carpal tunnel surgery of left wrist History of carpal tunnel surgery of right wrist History of surgery on wrist Hx of amputation Hx of colonoscopy Hx of myringotomy Social History Smoking Status: Former smoker Vital Signs Vital Signs Vital Signs: 03/06/23 11:42 03/06/23 11:42 Temperature 98.7 F Temperature Source Temporal Pulse Rate 70 Respiratory Rate 16 Respiratory Pattern Normal Blood Pressure 139/58 H Blood Pressure Mean 85 Blood Pressure Source Monitor Blood Pressure Position Semi-Fowlers Blood Pressure Location Left Arm Pulse Ox 96 Oxygen Delivery Method Room Air Weight Weight: 105 kg Body Mass Index (BMI) 32.3 Results Lab / Micro Data Result Diagrams: 03/02/23 12:46
--- NOTE | 2023-03-06 13:58 | PCM.OPRPT ---
Report of Operation Date of Procedure: 03/06/23 Pre-Operative Diagnosis: BPH with obstruction Post-Operative Diagnosis: Same Surgery/Procedure Performed:: Transurethral resection of the prostate Description of Surgical Findings:: Patient was taken back to the operating room at the smooth induction of general anesthesia he was placed in dorsolithotomy position. The penis and testicles prepped and draped in usual sterile fashion and then went into the urethra with a 24 Dominican noncontinuous flow Olympus resectoscope he had a short length but obstructive prostate fairly distended bladder with mild trabeculation then switched over to the resectoscope using the large loop placed were started the floor the prostate resected the floor the prostate present the right lobe of the prostate resected left lobe the prostate resected the roof and then came back and very carefully resected the apical tissue sphincter was intact had a nice wide open channel from the verumontanum into the bladder but a 22 Dominican catheter into the bladder started irrigation the urine was clear patient anesthetic was reversed and taken back to the PACU in good condition had a nice open resection and had a good flow test at the end of the resection. Surgeon: Huy Dyer Type of Anesthesia: General Drains: [address] Estimated Blood Loss (mL): 0 Admit VTE Documentation VTE Present on Admission: No VTE Mechan Device Prophylaxis: SCD's VTE Pharm Prophylaxis ordered?: No
[2023-03-06] MEDS: Cefazolin 2 GM in 0.9% Normal Saline 100 ML IV (14:27)
[2023-03-06] MEDS: Lactated Ringers 1,000 ML 150 ML IV ×2 (15:32→21:33)
[2023-03-06] MEDS: Morphine 2 MG/ML Syringe IV ×2 (15:52→18:10)
[2023-03-06] MEDS: Tamsulosin HCl 0.4 MG Capsule PO (17:04)
[2023-03-06] MEDS: Ciprofloxacin 400 MG/200 ML BAG 200 MG IV (21:33)
[2023-03-06] MEDS: Docusate Sodium 100 MG Capsule 200 MG PO (21:33)
[2023-03-06] MEDS: Gabapentin 300 MG Capsule 900 MG PO (23:54)
[2023-03-07 01:55] VITALS: BP 130/76; PULSE 67; RESP 16; TEMP 36.6; O2SAT 93
[2023-03-07] MEDS: Lactated Ringers 1,000 ML 150 ML IV (05:01)
[2023-03-07 05:05] VITALS: BP 139/81; PULSE 58; RESP 16; TEMP 36.9; O2SAT 93
[2023-03-07 08:29] VITALS: BP 132/77; PULSE 62; RESP 16; TEMP 36.7; O2SAT 92
[2023-03-07] MEDS: Ciprofloxacin 400 MG/200 ML BAG 200 MG IV (08:44)
[2023-03-07] MEDS: Docusate Sodium 100 MG Capsule 200 MG PO (08:45)
[2023-03-07] MEDS: Losartan Potassium 100 MG Tablet PO (08:45)
[2023-03-07] MEDS: Finasteride 5 MG Tablet PO (08:46)
[2023-03-07] MEDS: Famotidine 20 MG Tablet PO (08:46)
[2023-03-07 11:20] VITALS: BP 131/64; PULSE 61; RESP 16; TEMP 36.9; O2SAT 94
== END 2023-03-07 11:27 | disposition home or self-care (01) ==
LOC: SDC 14:38 → MS3 14:38
PROVIDERS: Anesthesiology; Admitting Provider Urology; PCP Family Medicine; Referring Provider Urology; Visit Provider Urology
PROC: (CPT 52601; principal; 2023-03-06 12:50)
DX: N40.1 Benign prostatic hyperplasia with lower urinary tract symptoms (principal); I10 Essential (primary) hypertension; Z87.891 Personal history of nicotine dependence; N13.8 Other obstructive and reflux uropathy; K21.9 Gastro-esophageal reflux disease without esophagitis; Z79.899 Other long term (current) drug therapy; Z79.82 Long term (current) use of aspirin; R35.0 Frequency of micturition; R39.12 Poor urinary stream
CPT/HCPCS: 52601; 00914; 36415; 85027; 88305; 93005; 96361; 96365; 96366; 96375; 96376; 99221; J7120; G0378; J0744; J2405

== ENCOUNTER 2023-03-11 19:39 | Emergency (ER) | payer OTHER, BC, SELFPAY ==
[2023-03-11 19:40] VITALS: BP 140/76; PULSE 73; RESP 16; TEMP 36.8; O2SAT 94; BMI 32.9
[2023-03-11 19:57] LABS: Mucous, Urine 0 SEEN /hpf (<or=2+)
[2023-03-11 20:00] LABS: Color, Urine Yellow (Yellow); Glucose, Dipstick Normal (Normal); Ketone-Dipstick Negative (Negative); Leukocyte Esterase-Dipstick Negative /ul (Negative); Nitrite-Dipstick Negative (Negative); Occult Blood-Urine 250 /ul (Negative); Protein-Dipstick 100 mg/dl (Negative); Urine Bilirubin Dipstick Negative (Negative); Urine Clarity Sl. Cloudy (Clear); Urine Urobilinogen Normal (Normal); Urine pH 6.5 (5.0 - 8.0)
[2023-03-11 20:21] LABS: Red Blood Cells-Urine 50-100 SEEN /hpf (0-5); White Blood Cells 0-5 SEEN /hpf (0-5)
[2023-03-11 20:22] LABS: Bacteria RARE /hpf (None Seen); Squamous Epithelial Cells - UA 0-5 SEEN /hpf (0-5)
--- NOTE | 2023-03-11 22:09 | EDS_ITS ---
HPI History of Present Illness Chief Complaint: Complaint Informant: patient and spouse/S.O. Narrative Narrative: Patient presents with progressive difficulty urinating. He had transurethral resection of the prostate on Thursday. He had some bleeding on Thursday and a little bit into Thursday but then the bleeding stopped. But then he has noticed that he is gotten progressively less and less urine. He states he feels like he needs to go and is somewhat full. He goes to the bathroom every 15 minutes but he only urinates a few drips. He does not feel ill. No fevers chills nausea vomiting. He states he does not have as much pain as much his pressure and a spasm feeling. He is eating and drinking well. Moving bowels normally. He is on Cipro and has about a day or so left. No anticoagulation. He was on aspirin but this was held 10 days prior to the procedure and still being held. [facility] Medical History Alcohol use Arthritis Back pain Former smoker Gastric reflux History of edema Hypertension Loss of hearing Prostate disease Restless legs Thyroid disease Wears glasses Home Medications alfuzosin 10 mg tablet,extended release 24 hr 10 mg PO DAILY 01/12/20 [History Last Taken Unknown] aspirin 81 mg tablet,delayed release 81 mg PO DAILY 01/12/20 [History Last Taken 02/23/23] famotidine 20 mg tablet 20 mg PO DAILY 01/12/20 [History Last Taken 03/06/23] krill fzt-ko-3-lqp-fqf-pzgqmiiggamvz 500 mg-115 mg-30 mg-64 mg capsule 1 ea PO DAILY 01/12/20 [History Last Taken 02/27/23] losartan 100 mg tablet 100 mg PO DAILY 01/12/20 [History Last Taken 03/06/23] qbedoazv-uzm-iyokx 200 mcg-lycop 175 mcg-lutei 250 mcg-herb 178 tablet 1 ea PO DAILY 01/12/20 [History Last Taken Unknown] finasteride 5 mg tablet 5 mg PO DAILY 02/27/23 [History Last Taken Unknown] ciprofloxacin HCl 500 mg tablet (Cipro) 500 mg PO BID #10 tabs 03/06/23 [Rx Last Taken Unknown] gabapentin 300 mg capsule 900 mg PO 2030,2300 RESTLESS LEGS 03/06/23 [History Last Taken Unknown] Allergy/AdvReac Type Severity Reaction Status Date / Time naproxen [From Naprosyn] AdvReac Chest Verified 03/11/23 19:41 tightness Surgical History History of carpal tunnel surgery of left wrist History of carpal tunnel surgery of right wrist History of surgery on wrist Hx of amputation Hx of colonoscopy Hx of myringotomy Social History Smoking Status: Former smoker ROS ROS ED ROS Narrative A complete review of systems was performed and is negative except as documented in the history of present illness. Some specific details below. Constitutional: No recent fevers or chills. No malaise. He does not feel ill. ENT: No difficulty swallowing. CV: No chest pain or palpitations. Respiratory: No dyspnea. No hemoptysis. No difficulty taking breaths. GI: No nausea vomiting change in appetite or bowel habits. He does have lower pelvic pressure. : See history of present illness. Musculoskeletal: No recent trauma. No pains. No back pain or flank pain Skin: No rash. Nondiaphoretic. Neuro: No weakness or numbness. Endocrine: No polyuria or polydipsia. EXAM Physical Exam Narrative Exam Narrative: CONSTITUTIONAL: Patient is nontoxic in appearance. The patient looks comfortable. HEENT: No notable trauma. Mucous membranes moist. No petechiae. EYES: No conjunctival injection. No proptosis. CARDIOVASCULAR: Regular rate. Regular rhythm. No notable murmur. No JVD. RESPIRATORY: No respiratory distress. Breathing is unlabored. GASTROINTESTINAL: Not distended. Bowel sounds are normal. No significant tenderness. He does feel little pressure in the suprapubic area. I cannot say that I actually feel an enlarged bladder though. GENITOURINARY: Just mild pressure or tenderness over the bladder. No CVA tenderness. MUSCULOSKELETAL: Atraumatic. No peripheral edema. No cord. No tenderness along the deep venous system. No asymmetry. NEUROLOGICAL: Patient is alert and appropriate. No focal deficit noted. SKIN: No noted rashes. No diaphoresis. PSYCHIATRIC: Patient is calm. Mood is appropriate. Const Vital Signs: 03/11/23 19:40 Temperature 98.3 F Temperature Source Temporal Pulse Rate 73 Respiratory Rate 16 Blood Pressure 140/76 H Blood Pressure Mean 97 Pulse Ox 94 Oxygen Delivery Method Room Air MDM MDM MDM Narrative Medical decision making narrative: Bedside bladder scan was done that showed just a little under 400 cc of retained urine. Because of this and his symptoms a catheter was placed. Ellyd? was placed without difficulty. Had immediate release of 500 cc and he has had another 200 cc out. The urine looks pale yellow. It does not look infected. It is not bloody or cloudy. His urine does show some red cells in the urine but visibly there is none. His symptoms are totally resolved after catheter placement. I explained to the patient that the catheter should really stay in at this time. If not he is likely to have recurrence. He will call Dr. Dyer in the morning for follow-up. He is not on-call tonight to contact. If he has fevers chills pain he should return. He should finish his Cipro also Lab Data Attestation: I reviewed the patient's lab results. Labs: Laboratory Results - last 24 hr 03/11/23 19:50 Urine Color Yellow Urine Clarity Sl. Cloudy Urine pH 6.5 Ur Specific Eunice 1.020 Urine Protein 100 H Urine Glucose (UA) Normal Urine Ketones Negative Urine Occult Blood 250 H Urine Nitrite Negative Urine Bilirubin Negative Urine Urobilinogen Normal Ur Leukocyte Esterase Negative Urine RBC 50-100 SEEN Urine WBC 0-5 SEEN Ur Squamous Epith Cells 0-5 SEEN Urine Bacteria RARE Urine Mucus 0 SEEN Discharge Plan Triage Chief Complaint: Complaint ED Provider: Tony Phoenix Dx/Rx/DC Orders Clinical Impression: Acute urinary retention, Status post transurethral resection of prostate Instructions: ED Walsh Catheter, Care Prescriptions: No Action aspirin 81 MG tablet,delayed release (DR/EC) 81 mg PO DAILY Hold Instructions: Resume on 03/20/23. famotidine 20 MG tablet 20 mg PO DAILY losartan 100 MG tablet 100 mg PO DAILY alfuzosin 10 MG tablet extended release 24 hr 10 mg PO DAILY ruipt-ttvml-7-wen-yhe-ohwdtv 1 EACH capsule 1 ea PO DAILY lq-dne-xuibu-bpckk-[id number] 1 EACH tablet 1 ea PO DAILY finasteride 5 mg Tablet 5 mg PO DAILY ciprofloxacin HCl [Cipro] 500 mg tablet 500 mg PO BID Qty: 10 0RF gabapentin 300 mg capsule 900 mg PO 2029,2299 Primary Care Provider: Rajendra Gentile Referrals: Huy Dyer MD [Med Staff - Active Staff] - As soon as possible (Call in the morning to notify.) Rajendra Gentile MD [Primary Care Provider] - Disposition Disposition: Home, Self Care
--- NOTE | 2023-03-11 22:39 | ED.RN ---
patient refused leg bag
== END 2023-03-11 22:39 | disposition home or self-care (01) ==
PROVIDERS: Emergency Provider Emergency Medicine; PCP Family Medicine; Visit Provider Emergency Medicine
DX: R33.9 Retention of urine, unspecified (principal); I10 Essential (primary) hypertension; Z98.890 Other specified postprocedural states; Z79.82 Long term (current) use of aspirin; Z87.891 Personal history of nicotine dependence
CPT/HCPCS: 51702; 81001; 87086; 99283

== ENCOUNTER → 2023-08-03 | Outpatient (CLI) | payer OTHER, BC, SELFPAY ==
[2023-08-03 11:06] LABS: Absolute Lymphocyte Count 1.97 X10^3/uL (0.83-4.51); Absolute Neutrophil Count 4.9 X10^3/uL (2.0-7.7); Basophil# 0.07 X10^3/uL; Basophil% 0.8 % (0-1); Eosinophil# 0.76 X10^3/uL; Eosinophils% 8.8 % (0-5); Hemoglobin 14.2 g/dL (13.0-16.5); Lymphocyte # 1.97 X10^3/ul (0.83-4.51); Lymphocyte % 22.7 % (19-41); Mean Corp Hgb Conc 31.6 g/dL (32-36); Mean Corpuscular Hgb 30.6 pg (27.0-32.0); Mean Platelet Vol. 10.2 fl (6.2-12.0); Monocyte# 0.91 X10^3/uL; Monocyte% 10.5 % (0-10); NRBC Flagged by Analyzer 0 % (0-5); Neutrophil # 4.89 X10^3/uL (2.7-7.7); Neutrophil % 56.5 % (47-70); Platelet Count 241 K/mm3 (150-450); RBC Distribution Width CV 13.2 % (11.6-14.6); RBC Distribution Width SD 46.6 fl (35.1-43.9); Red Blood Count 4.64 M/mm3 (4.6-6.2); White Blood Count 8.7 K/mm3 (4.4-11.0)
[2023-08-03 11:32] LABS: Vitamin D,25 Hydroxy 53.6 ng/mL
[2023-08-03 11:38] LABS: Hemoglobin A1c 5.4 % (3.8-5.6)
[2023-08-03 11:42] LABS: ALB/GLOB Ratio 1.1 RATIO (0.9-2.4); AST(SGOT) 24 U/L (15-37); Alanine Aminotransfer ALT/SGPT 34 U/L (16-61); Albumin, Serum 3.4 g/dL (3.2-5.0); Alkaline Phosphatase 81 U/L (45-117); Anion Gap 5 (5-15); BUN 15 mg/dL (7-18); BUN/Creat Ratio 17.8 RATIO (10-20); Calcium,Total 9.3 mg/dL (8.5-10.1); Chloride 109 mmol/L (98-107); Cholesterol 171 mg/dL (200); Creatinine, Serum 0.84 mg/dL (0.70-1.30); EST Glomerular Filtration Rate 98 mL/min (>60); Est Glom Filt Rate - Afr Amer 118 mL/min (>60); Globulin 3.1 g/dL (2.2-4.2); Glucose 103 mg/dL (74-106); High Density Lipoprotein 40 mg/dL; PSA,Total - Annual Screen 0.91 ng/mL (0.00-4.00); Potassium 4.4 mmol/L (3.5-5.1); Protein, Total 6.5 g/dL (6.4-8.2); Sodium Level 140 mmol/L (136-145); Triglycerides 102 mg/dL; Very Low Density Lipoprotein 20 mg/dL (5-40)
== END | disposition home or self-care (01) ==
LOC: LAB 09:45
PROVIDERS: PCP Family Medicine; Visit Provider Urology
DX: Z12.5 Encounter for screening for malignant neoplasm of prostate (principal); R73.02 Impaired glucose tolerance (oral); I10 Essential (primary) hypertension; E55.9 Vitamin D deficiency, unspecified
CPT/HCPCS: 36415; 80053; 80061; 82306; 83036; 84153; 85025; G0103

== ENCOUNTER → 2024-08-03 | Outpatient (CLI) | payer BC, SELFPAY ==
[2024-08-03 10:06] LABS: Bacteria 0 SEEN /hpf (None Seen); Mucous, Urine 0 SEEN /hpf (<or=2+); Red Blood Cells-Urine 0 SEEN /hpf (0-5); Squamous Epithelial Cells - UA 0 SEEN /hpf (0-5); White Blood Cells 0 SEEN /hpf (0-5)
[2024-08-03 12:20] LABS: Absolute Lymphocyte Count 1.57 X10^3/uL (0.83-4.51); Absolute Neutrophil Count 5.2 X10^3/uL (2.0-7.7); Basophil# 0.08 X10^3/uL; Eosinophil# 0.58 X10^3/uL; Eosinophils% 6.9 % (0-5); Hematocrit 44.5 % (40-54); Hemoglobin 14.2 g/dL (13.0-16.5); Lymphocyte # 1.57 X10^3/ul (0.83-4.51); Lymphocyte % 18.7 % (19-41); Mean Corp Hgb Conc 31.9 g/dL (32-36); Mean Corpuscular Hgb 30.3 pg (27.0-32.0); Mean Corpuscular Volume 95.1 fL (80-94); Mean Platelet Vol. 9.4 fl (6.2-12.0); Monocyte# 0.89 X10^3/uL; Monocyte% 10.6 % (0-10); NRBC Flagged by Analyzer 0 % (0-5); Neutrophil # 5.22 X10^3/uL (2.7-7.7); Neutrophil % 62.2 % (47-70); Platelet Count 298 K/mm3 (150-450); RBC Distribution Width CV 13.4 % (11.6-14.6); Red Blood Count 4.68 M/mm3 (4.6-6.2); White Blood Count 8.4 K/mm3 (4.4-11.0)
[2024-08-03 12:23] LABS: Color, Urine Yellow (Yellow); Glucose, Dipstick Normal (Normal); Ketone-Dipstick Negative (Negative); Leukocyte Esterase-Dipstick Negative /ul (Negative); Nitrite-Dipstick Negative (Negative); Occult Blood-Urine Negative /ul (Negative); Protein-Dipstick Negative (Negative); Urine Bilirubin Dipstick Negative (Negative); Urine Clarity Clear (Clear); Urine Urobilinogen Normal (Normal)
[2024-08-03 12:40] LABS: Hemoglobin A1c 5.6 % (3.8-5.6)
[2024-08-03 13:07] LABS: ALB/GLOB Ratio 1.3 RATIO (0.9-2.4); AST(SGOT) 18 U/L (15-37); Alanine Aminotransfer ALT/SGPT 29 U/L (16-61); Albumin, Serum 3.9 g/dL (3.2-5.0); Alkaline Phosphatase 106 U/L (45-117); Anion Gap 5 (5-15); BUN 19 mg/dL (7-18); BUN/Creat Ratio 20.7 RATIO (10-20); Calcium,Total 10.3 mg/dL (8.5-10.1); Chloride 103 mmol/L (98-107); Cholesterol 206 mg/dL (200); Creatinine, Serum 0.92 mg/dL (0.70-1.30); EST Glomerular Filtration Rate 89 mL/min (>60); Est Glom Filt Rate - Afr Amer 107 mL/min (>60); Globulin 3.1 g/dL (2.2-4.2); Glucose 111 mg/dL (74-106); High Density Lipoprotein 46 mg/dL; Potassium 4.3 mmol/L (3.5-5.1); Sodium Level 136 mmol/L (136-145); Triglycerides 90 mg/dL; Very Low Density Lipoprotein 18 mg/dL (5-40)
[2024-08-05 13:57] LABS: PTHIN 63.9 pg/mL (18.4-80.1)
== END | disposition home or self-care (01) ==
PROVIDERS: PCP Family Medicine; Visit Provider Family Medicine
DX: I10 Essential (primary) hypertension (principal); E55.9 Vitamin D deficiency, unspecified; E66.9 Obesity, unspecified; R73.02 Impaired glucose tolerance (oral); E83.52 Hypercalcemia
CPT/HCPCS: 36415; 80053; 80061; 81001; 82306; 83036; 83970; 85025

== ENCOUNTER 2024-08-17 14:51 | Emergency (ER) | payer BC, SELFPAY ==
[2024-08-17] VITALS (7 sets, daily range): BP systolic 129–146; BP diastolic 65–94; PULSE 61–87; RESP 17–19; TEMP 36.2–36.7; O2SAT 94–98; BMI 33.0
--- NOTE | 2024-08-17 15:05 | EKG12_ITS ---
Test Reason : CP Blood Pressure : */* mmHG Vent. Rate : 67 BPM Atrial Rate : 67 BPM P-R Int : 166 ms QRS Dur : 100 ms QT Int : 384 ms P-R-T Axes : 76 29 49 degrees QTcB Int : 405 ms Normal sinus rhythm Normal ECG Confirmed by TIERA REED, CARLOS A ([id number]), editor managing newspaper JESSICA MALONEY ([id number]) on 08/19/2024 8:15:04 AM Referred By: TL/CG Confirmed By: CARLOS A MOTT MD
--- NOTE | 2024-08-17 15:55 | RAD_ITS ---
STUDY: X-RAY CHEST REASON FOR EXAM: Male, 64 years old. chest pain TECHNIQUE: AP portable COMPARISON: January 23, 2022 FINDINGS: There is minor chronic interstitial thickening in the lower lobes. No acute infiltration or pulmonary nodule.. There is no demonstrated pleural abnormality. Normal size heart. Normal mediastinum and kelly. Normal visualized pulmonary arteries. Normal visualized aortic arch and descending thoracic aorta. Normal visualized thoracic spine. Normal visualized ribs, clavicles, and shoulders. There is no demonstrated abnormality of the visualized soft tissue structures of the upper abdomen. No significant change since prior study RAD/Chest 1 View (Portable) IMPRESSION: No acute cardiopulmonary pathology. Electronically Signed: Wilmer Rebolledo MD at 16:11 EDT ,
[2024-08-17 16:08] LABS: Anion Gap 4 (5-15); BUN 18 mg/dL (7-18); BUN/Creat Ratio 15.7 RATIO (10-20); Calcium,Total 9.8 mg/dL (8.5-10.1); Chloride 108 mmol/L (98-107); Creatinine, Serum 1.15 mg/dL (0.70-1.30); EST Glomerular Filtration Rate 68 mL/min (>60); Est Glom Filt Rate - Afr Amer 83 mL/min (>60); Glucose 96 mg/dL (74-106); Potassium 4.4 mmol/L (3.5-5.1); Sodium Level 141 mmol/L (136-145); Troponin-I HS (w/2H Reflex) < 3 pg/mL (3.0-78.0)
[2024-08-17 16:10] LABS: Absolute Lymphocyte Count 1.86 X10^3/uL (0.83-4.51); Basophil# 0.08 X10^3/uL; Eosinophil# 0.57 X10^3/uL; Eosinophils% 6.8 % (0-5); Hematocrit 43.6 % (40-54); Hemoglobin 14.3 g/dL (13.0-16.5); Lymphocyte # 1.86 X10^3/ul (0.83-4.51); Lymphocyte % 22.1 % (19-41); Mean Corp Hgb Conc 32.8 g/dL (32-36); Mean Corpuscular Hgb 31.2 pg (27.0-32.0); Mean Platelet Vol. 9.2 fl (6.2-12.0); Monocyte# 0.88 X10^3/uL; Monocyte% 10.5 % (0-10); NRBC Flagged by Analyzer 0 % (0-5); Neutrophil # 4.98 X10^3/uL (2.7-7.7); Neutrophil % 59.1 % (47-70); Platelet Count 304 K/mm3 (150-450); RBC Distribution Width CV 13.4 % (11.6-14.6); RBC Distribution Width SD 47.2 fl (35.1-43.9); Red Blood Count 4.59 M/mm3 (4.6-6.2); White Blood Count 8.4 K/mm3 (4.4-11.0)
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
[2024-08-17 17:44] LABS: Reflex Troponin-HS? (from REC) Y
[2024-08-17 18:17] LABS: Troponin-I HS < 3 pg/mL (3.0-78.0)
[2024-08-17 18:42] LABS: D-Dimer Quantitative (DVT/PE) < 0.27 FEU/ug/m (0.27-0.49)
== END 2024-08-17 19:55 | disposition home or self-care (01) ==
PROVIDERS: Emergency Provider Emergency Medicine; PCP Family Medicine; Visit Provider Emergency Medicine
DX: R07.9 Chest pain, unspecified (principal); M54.12 Radiculopathy, cervical region; I10 Essential (primary) hypertension; K21.9 Gastro-esophageal reflux disease without esophagitis; E07.9 Disorder of thyroid, unspecified; M19.90 Unspecified osteoarthritis, unspecified site; G25.81 Restless legs syndrome; Z82.49 Family history of ischemic heart disease and other diseases of the circulatory system; Z79.82 Long term (current) use of aspirin; Z79.899 Other long term (current) drug therapy; Z86.711 Personal history of pulmonary embolism; Z86.718 Personal history of other venous thrombosis and embolism; Z87.891 Personal history of nicotine dependence
CPT/HCPCS: 71045; 80048; 84484; 85025; 85379; 93005; 99283; A4216

== ENCOUNTER → 2024-10-07 | Outpatient (CLI) | payer BC, SELFPAY | END | disposition home or self-care (01) | LOC: LABSPEC 15:44 | PROVIDERS: PCP Family Medicine; Visit Provider Physician Assistant Surgical | DX: R35.0 Frequency of micturition (principal) | CPT/HCPCS: 87086 ==

== ENCOUNTER 2025-03-24 11:41 | Outpatient (CLI) | payer BC, SELFPAY ==
--- NOTE | 2025-03-24 11:42 | RAD_ITS ---
PROCEDURE: CHEST PA AND LATERAL 03/24/2025 REASON FOR EXAM: RHONCHI TECHNIQUE: Frontal and lateral views of the chest. COMPARISON: Two-view chest, 08/17/2020. FINDINGS: The lungs are clear. The heart borders mediastinum and pulmonary vascular pattern are normal. The upper abdominal bowel gas pattern is normal. There are no bony abnormalities. RAD/Chest PA and Lateral IMPRESSION: No evidence of acute cardiopulmonary pathology. Reading Location: [id number]
--- NOTE | 2025-03-24 11:42 | RAD_ITS ---
EXAM: XR Left Hand, 2 Views CLINICAL INDICATION: ATTENTION 4 DIGIT, S/P FALL TECHNIQUE: Frontal and lateral views of the left hand. COMPARISON: No relevant prior studies available. FINDINGS: BONES/JOINTS: Severe degenerative changes of the intercarpal joints. Severe degenerative change of the radiocarpal joints. Mild degenerative change of the 1st carpometacarpal joint. No acute fracture. No dislocation. SOFT TISSUES: Soft tissue swelling. No radiopaque foreign body. RAD/Hand 2 Views IMPRESSION: Degenerative changes as above. Reading Location: [id number]
[2025-03-24 11:46] LABS: Bacteria 0 SEEN /hpf (None Seen); Mucous, Urine 0 SEEN /hpf (<or=2+); Red Blood Cells-Urine 0 SEEN /hpf (0-5)
[2025-03-24 15:01] LABS: Color, Urine Yellow (Yellow); Glucose, Dipstick Normal (Normal); Ketone-Dipstick Negative (Negative); Leukocyte Esterase-Dipstick Negative /ul (Negative); Nitrite-Dipstick Negative (Negative); Occult Blood-Urine Negative /ul (Negative); Protein-Dipstick Negative (Negative); Urine Bilirubin Dipstick Negative (Negative); Urine Clarity Clear (Clear); Urine Urobilinogen Normal (Normal)
[2025-03-24 15:04] LABS: Absolute Lymphocyte Count 1.73 X10^3/uL (0.83-4.51); Absolute Neutrophil Count 4.8 X10^3/uL (2.0-7.7); Basophil# 0.09 X10^3/uL; Basophil% 1.1 % (0-1); Eosinophil# 0.51 X10^3/uL; Eosinophils% 6.4 % (0-5); Hematocrit 43.5 % (40-54); Hemoglobin 14.2 g/dL (13.0-16.5); Lymphocyte # 1.73 X10^3/ul (0.83-4.51); Lymphocyte % 21.6 % (19-41); Mean Corp Hgb Conc 32.6 g/dL (32-36); Mean Corpuscular Hgb 30.4 pg (27.0-32.0); Mean Corpuscular Volume 93.1 fL (80-94); Mean Platelet Vol. 9.7 fl (6.2-12.0); Monocyte# 0.87 X10^3/uL; Monocyte% 10.8 % (0-10); NRBC Flagged by Analyzer 0 % (0-5); Neutrophil # 4.77 X10^3/uL (2.7-7.7); Neutrophil % 59.5 % (47-70); Platelet Count 277 K/mm3 (150-450); RBC Distribution Width CV 13.1 % (11.6-14.6); RBC Distribution Width SD 44.6 fl (35.1-43.9); Red Blood Count 4.67 M/mm3 (4.6-6.2)
[2025-03-24 16:33] LABS: Hemoglobin A1c 5.8 % (<=5.6)
[2025-03-24 16:44] LABS: ALB/GLOB Ratio 1.7 RATIO (0.9-2.4); AST(SGOT) 28 U/L (<=37); Alanine Aminotransfer ALT/SGPT 35 U/L (<=46); Albumin, Serum 4.3 g/dL (3.4-4.8); Alkaline Phosphatase 115 U/L (40-129); Anion Gap 11 (5-15); BUN 24 mg/dL (4-19); BUN/Creat Ratio 26.2 RATIO (10-20); Calcium,Total 10.3 mg/dL (7.6-11.0); Carbon Dioxide 22.1 mmol/L (21.0-32.0); Chloride 104 mmol/L (98-108); Creatinine, Serum 0.92 mg/dL (0.70-1.20); EST Glomerular Filtration Rate 94 (>60); Globulin 2.5 g/dL (2.2-4.2); Glucose 114 mg/dL (70-99); Magnesium 2.2 mg/dL (1.5-2.2); Potassium 4.5 mmol/L (3.3-5.1); Protein, Total 6.8 g/dL (5.9-8.4); Sodium Level 138 mmol/L (133-145); Total Bilirubin 0.21 mg/dL (0.00-1.30); Vitamin D,25 Hydroxy 50.1 ng/mL (30-100)
[2025-03-24 16:55] LABS: Cholesterol 188 mg/dL (<=200); High Density Lipoprotein 36 mg/dL; Low Density Lipoprotein Calc. 119 mg/dL; Triglycerides 165 mg/dL; Very Low Density Lipoprotein 33 mg/dL (5-40); cholesterol:hdl ratio screen 5.28
[2025-03-24 17:01] LABS: Squamous Epithelial Cells - UA 0-5 SEEN /hpf (0-5); White Blood Cells 0-5 SEEN /hpf (0-5)
== END 2025-03-24 23:59 | disposition home or self-care (01) ==
LOC: MTLAB 11:42
PROVIDERS: PCP Family Medicine; Referring Provider Family Medicine; Visit Provider Family Medicine
DX: R09.89 Other specified symptoms and signs involving the circulatory and respiratory systems (principal); M79.642 Pain in left hand; R73.02 Impaired glucose tolerance (oral); I10 Essential (primary) hypertension; E55.9 Vitamin D deficiency, unspecified
CPT/HCPCS: 36415; 71046; 73120; 80053; 80061; 81001; 82306; 83036; 83735; 85025

== ENCOUNTER → 2025-03-31 | Outpatient (CLI) | payer BC, SELFPAY ==
--- NOTE | 2025-03-31 17:51 | US_ITS ---
PROCEDURE: THYROID 03/31/2025 REASON FOR EXAM: NODULE TECHNIQUE: High-frequency thyroid ultrasound, including grayscale and color-flow images. REFERENCE LINKS: TI-RADS Chart: [email or web address] TI-RADS Calculator Tool with Reference Images: [email or web address] COMPARISON: 12/18/2022 FINDINGS: Right thyroid lobe size: 4.6x2x1.7 cm. An inferior pole solid rounded nodule with increased vascularity is seen, it measures 0.65x0.41x0.49 cm Left thyroid lobe size: 4.5x2.3x1.4 cm. A complex mid pole rounded nodule with internal vascularity that measures 0.8x0.61x0.7 cm is seen. Isthmus: 0.25 cm Background parenchymal echotexture is homogeneous. US/Thyroid IMPRESSION: Stable bilateral TR3 nodules. RECOMMENDATION: Based on most suspicious nodule. Nodule size = largest diameter Only evaluate nodule if =>5 mm. Growth > 20% in 2 dimensions = worsening. Follow up to 4 nodules. Recommend biopsy for no more than 2 nodules. Reading Location[facility]
--- OUTSIDE RECORDS SUMMARY | 2025-03-31 19:47 | XMS RPT_ITS | CCD ---
Author Organization [facility] Care Team Providers Care Degreasing Wheel Operator Name Role Phone Kimani Gentile Primary Care Provider ENRIQUE WORTHY Admitting Unavailable TESTENRIQUE NICOLE Attending Unavailable KIMANI GENTILE Primary Care Unavailable Kimani Gentile MD Primary Care Provider ENRIQUE WORTHY Referring Unavailable KIMANI GENTILE Primary Care Unavailable TESTRAKE, ENRIQUE Referring Unavailable KIMANI GENTILE Primary Care Unavailable TESTRAISIS, ENRIQUE Referring Unavailable KIMANI GENTILE Primary Care Unavailable TESTENRIQUE NICOLE Attending Unavailable KIMANI GENTILE Primary Care Unavailable TESTRAISIS, ENRIQUE Referring Unavailable KIMANI GENTILE Primary Care Unavailable TESTRAISIS, ENRIQUE Referring Unavailable KIMANI GENTILE Primary Care Unavailable TESTEDILIA, ENRIQUE Attending Unavailable TESTEDILIA, ENRIQUE Referring Unavailable KIMANI GENTILE Primary Care Unavailable DANA KRAUS Attending Unavailable KIMANI GENTILE Primary Care Unavailable KENDELL GAMBINO JR Attending Unavailable KIMANI GENTILE Primary Care Unavailable TESTRAENRIQUE MARINELLI Attending Unavailable TESTRAENRIQUE MARINELLI Referring Unavailable KIMANI GENTILE Primary Care Unavailable TESTRAKE, ENRIQUE Referring Unavailable KIMANI GENTILE Primary Care Unavailable TESTRAISIS, ENRIQUE Attending Unavailable TESTEDILIA, ENRIQUE Referring Unavailable KIMANI GENTILE Primary Care Unavailable Kimani Gentile Referring Unavailable Mike Pan Attending Unavailable Kimani Gentile Primary Care Unavailable Kimani Gentile Attending Unavailable Kimani Gentile Primary Care Unavailable Mike Pan Attending Unavailable Kimani Gentile Primary Care Unavailable Sally Barraza Attending Unavailable Kimani Gentile Primary Care Unavailable Kimani Gentile Referring Unavailable Kimani Gentile Attending Unavailable Kimani Gentile Primary Care Unavailable Kimani Gentile Referring Unavailable Kimani Gentile Attending Unavailable Kimani Gentile Primary Care Unavailable Dr. Kimani Gentile MD Primary Care Provider Dr. Kimani Gentile MD Attending Provider Dr. Kimani Gentile MD Referring Provider [phone] Allergies Allergy Classification Reported Allergen(s) Allergy Type Date of Onset Reaction(s) Facility (20 sources) Naproxen; Translations: [NAPROXEN] Drug Allergy 0 Other: See Comments [facility] (1 source) Naproxen Drug Allergy 4 [facility] Medications Current Medications Medication Drug Class(es) Dates Sig (Normalized) Sig (Original) aspirin 81 mg delayed release oral tablet (20 sources) Platelet Aggregation Inhibitor, Nonsteroidal Anti-inflammatory Drug Start: 08-31-2008 take 1 tablet by mouth once daily Aspirin 81 MG tablet,delayed release (/EC) Active 81 mg PO DAILY January 12, 2020 12:00am On Hold: Resume on 03/20/23. Comment on above: Take one(1) tablet d aily. 12 hr buPROPion hydrochloride 150 mg extended release oral tablet (1 source) Aminoketone Start: 10-07-2024 take 1 tablet by mouth once daily in the morning Bupropion Hcl (Wellbutrin Sr) 150 mg tablet sustained-releas e 12 hr Active 150 mg PO EVERY MORNING October 07, 2024 1:00am cetirizine HCl/pseudoephedrine (ZYRTEC-D ORAL) (12 sources) take 20 mg by mouth once daily in the morning cetirizine HCl/pseudoephedr ine (ZYRTEC-D ORAL) Take 20 mg by mouth once daily. AM Active cetirizine HCl/p seudoephedrine (ZYRTEC-D ORAL) Take by mouth. AM Active cetirizine HCl/p seudoephedrine (ZYRTEC-D ORAL) Take by mouth. AM 0 Active cholecalciferol 2500 unt / folic acid 1 mg oral tablet (19 sources) Vitamin D take 1 tablet by mouth once daily vitamin D3-folic acid 2,500 unit- 1 mg tab Take 2,000 Units by mouth once daily. Active Comment on above: Take 2,000 Units by mouth once daily. famotidine 20 mg oral tablet (20 sources) Histamine-2 Receptor Antagonist Start: take 1 tablet by mouth once daily Famotidine 20 MG tablet Active 20 mg PO DAILY January 12, 2020 12:00am Start: 08-31-2008 famotidine(PEP TRISTAN AC 10 MG TAB) Take one(1) tablet daily. 0 08/31/2008 Active Comment on above: Take one(1) tablet d aily. gabapentin 600 mg oral tablet (20 sources) Anti-epileptic Agent Start: 01-06-2025 End: 07-06-2025 gabapentin (NEURONTIN) 600 mg tablet Indications: RLS (restless legs syndrome) Take 1.5 tablets at 5PM, 1 tablet at 8PM, and 1 tablet at 11PM 945 tablet 1 01/06/2025 07/06/2025 Active Start: 12-14-2023 End: 01-06-2025 gabapentin (NEURONTIN) 600 m g tablet Indications: RLS (restless legs syndrome) Take 1 tablet at 5PM, 1 tablet at 8PM, and 1.5 tabs at 11PM. 945 tablet 1 07/08/2024 01/06/2025 Discontinued Start: 03-06-2023 Gabapentin Act dewayne 900 MG PO March 06, 2023 12:00am Start: 12-29-2022 End: 12-29-2023 take 3 capsules by mouth in the evening gabapentin (NEURONTIN) 300 mg capsule Indications: RLS (restless legs syndrome) TAKE THREE CAPSULES BY MOUTH AT 8 P.M. AND TAKE THREE CAPSULES AT BEDTIME 180 capsule 0 12/01/2023 12/29/2023 Active Start: 09-08-2022 End: 12-29-2022 gabapentin (NEURONTIN) 300 m g capsule Indications: RLS (restless legs syndrome) Take 1 cap at 8PM and QHS x3 days. If sx not improved and no SE, can increase to 2 caps at 8PM and QHS. If still sxs can increase to 3 caps at 8PM and QHS. 180 capsule 2 09/08/2022 12/29/2022 Discontinued Start: 06-02-2022 End: 09-05-2022 gabapentin (NEURONTIN) 300 m g capsule Indications: RLS (restless legs syndrome) Take 1 cap at 8PM and QHS x3 days. If sx not improved and no SE, can increase to 2 caps at 8PM and QHS. If still sxs can increase to 3 caps at 8PM and QHS. 180 capsule 2 06/02/2022 09/05/2022 Discontinued Comment on above: Take 1 cap at 8PM an d QHS x3 days. If sx not improved and no SE, can increase to 2 caps at 8PM and QHS. If still sxs can increase to 3 caps at 8PM and QHS. Take 300 mg by mouth once daily. 3 caps at 8PM and QH S. TAKE 3 CAPSULES BY M OUTH AT 8 P.M. AND AT BEDTIME TAKE THREE CAPSULES BY MOUTH AT 8 P.M. AND TAKE THREE CAPSULES AT BEDTIME Pqcdv-Ngnkq-8-Dha-Epa-L ipids (4 sources) Start: 01-12-2020 Ooxqi-Nktcb-8-Dha-Epa -Lipids Active 1 EACH PO DAILY January 12, 2020 9:15pm Start: 01-12-2020 Bkkdn-Wycai-3- Mam-Bhc-Uysrbe Active 1 EACH PO DAILY January 11, 2020 11:00pm Start: 01-12-2020 Eriyw-Qmfkr-9- Sdb-Luv-Cmtdfw Active 1 EACH PO DAILY January 12, 2020 12:00am Ujjek-Gzakx-3-Dth-Eqm-Ipalid 1 EACH capsule (1 source) Start: 01-12-2020 take 1 capsule by mouth once daily Xrmzr-Wjgqh-4-Ybg-Afo-Oodezu 1 EACH capsule Active 1 NMA PO DAILY January 12, 2020 12:00am USOZK-WUQOZ-0-CZI-TIH-GAZCBD ORAL (19 sources) Start: 01-12-2020 take 500 mg by mouth once daily DQKXQ-MBLSO-7-AQH-KDP-HIJMMR ORAL Take 500 mg by mouth once daily. 01/12/2020 Active Start: 01-12-2020 take 1290 mg by mout h once daily OCQRJ-HYBIY-9-HON-SBI-NYTJNA ORAL Take 1 ,290 mg by mouth once daily. 01/12/2020 Active Start: 01-12-2020 take 1290 mg by mout h once daily UIWCO-YOQDD-6-ZPK-XLM-HFXDFY ORAL Take 1 ,290 mg by mouth once daily. 0 01/12/2020 Active Comment on above: Take 1,290 mg by yossi th once daily. losartan potassium 100 mg oral tablet (20 sources) Angiotensin 2 Receptor Jayla Start: 0 take 1 tablet by mouth once daily Losartan 100 MG tablet Active 100 mg PO DAILY January 12, 2020 12:00am Comment on above: Take 100 mg by mouth once daily. meloxicam 15 mg oral tablet (2 sources) Nonsteroidal Anti-inflammatory Drug Start: 4 End: 4 take 1 tablet by mouth once daily meloxicam (MOBIC) 15 mg tablet Take 1 tablet by mouth once daily. 30 tablet 1 05/19/2024 06/18/2024 Active MULTIVITAMIN ORAL (8 sources) take 1 tablet by mouth once daily MULTIVITAMIN ORAL Take 1 tablet by mouth once daily. Active Dj-Iiv-Yskef-Lycop-Serenity [id number] (4 sources) Start: 0 Ce-Pcf-Nfiwm-Lycop-L ut-Kjwb550 Active 1 EACH PO DAILY January 12, 2020 9:18pm Start: 01-12-2020 Dt-Nor-Cfwqg-L wacx-Dfh-Byuk178 Active 1 EACH PO DAILY January 11, 2020 11:00pm Start: 01-12-2020 Nh-Grc-Yzrxg-L qhax-Gkn-Vmem995 Active 1 EACH PO DAILY January 12, 2020 12:00am Lo-Xzj-Cpeng-Khgvi-Rab-Gevk2 78 1 EACH tablet (1 source) Start: 01-12-2020 take 1 tablet by mouth once daily Xs-Sep-Kfnmy-Ixrhf-Yos-Lgrw452 1 EACH tablet Active 1 NMA PO DAILY January 12, 2020 12:00am traZODone hydrochloride 100 mg oral tablet (14 sources) Sero kirti n Reup take Inhi bito r Start: 01-06-2025 take 1 tablet by mouth once daily at bedtime traZODone (DESYREL) 100 mg tablet Take 1 tablet by mouth daily at bedtime. 90 tablet 1 01/06/2025 Active Start: 12-14-2023 End: 01-04-2025 take 1 tablet by mouth once daily at bedtime traZODone (DESYREL) 50 mg tablet Indications: Insomnia, unspecified type Take 1 tablet by mouth daily at bedtime. 90 tablet 1 03/08/2024 07/08/2024 Discontinued vitamin b12 0.5 mg oral tablet (8 sources) Vitamin B12 take 1 tablet by mouth once daily cyanocobalamin (VITAMIN B-12) 500 mcg tablet Take 1 tablet by mouth once daily. Active Completed/Discontinued Medications Medication Drug Class(es) Dates Sig (Normalized) Sig (Original) acetaminophen 325 mg / oxyCODONE hydrochloride 5 mg oral tablet (5 sources) Opioid Agonist Start: 01-12-2020 End: 01-15-2020 Oxycodone-Acetamino phen 1 TABLET tablet Discontinued 1 {tbl} PO EVERY 6 HOURS NEEDED as needed for Pain 12 January 12, 2020 January 14, 2020 12:00am January 15, 2020 12:07am Start: 01-12-2020 End: 01-15-2020 take 1 tablet by mouth every six hours as needed Oxycodone-Acetaminophen Discontinued 1 TABLET PO EVERY 6 HOURS NEEDED 12 January 12, 2020 January 15, 2020 12:07am 24 hr alfuzosin hydrochloride 10 mg extended release oral tablet (5 sources) alpha-Adrenergic Jayla Start: 01-12-2020 End: 10-07-2024 take 1 tablet by mouth once daily Alfuzosin 10 MG tablet extended release 24 hr Discontinued 10 mg PO DAILY January 12, 2020 12:00am October 07, 2024 12:55pm cephalexin 500 mg oral capsule (7 sources) Cephalosporin Antibacterial Start: 11-13-2008 take 1 capsule by mouth once daily cephalexin monohydrate(KEFLE X 500 MG CAP) Indications: Pyoderma, unspecified , Other specified disease of hair and hair follicles Take one(1) capsule po two(2) times per day for 2 weeks 30 1 11/13/2008 Active Comment on above: Take one(1) capsule po two(2) times per day for 2 weeks ciclopirox 10 mg/ml medicated shampoo (8 sources) Start: 11-13-2008 End: 03-07-2024 ciclopirox(LOPROX 1 % SHAMPOO) Indications: Seborrheic dermatitis, unspecified , Unspecified pruritic disorder Use as directed to cleanse scalp qod for 2-4 weeks and then can taper to qwk as able stock 6 11/13/2008 03/07/2024 Discontinued Comment on above: Use as directed to c leanse scalp qod for 2-4 weeks and then can taper to qwk as able ciprofloxacin 500 mg oral tablet (3 sources) Quinolone Antimicrobial Start: 03-06-2023 End: 10-14-2024 take 1 tablet by mouth twice daily Ciprofloxacin Hcl (Cipro) 500 mg tablet Discontinued 500 mg PO TWICE A DAY 14 October 07, 2024 1:00am October 13, 2024 1:00am October 14, 2024 1:13am clobetasol propionate 0.5 mg/ml medicated shampoo (7 sources) Corticosteroid Start: 11-13-2008 clobetasol propionate(CLOBEX 0.05 % SHAMPOO) Indications: Seborrheic dermatitis, unspecified , Unspecified pruritic disorder Shampoo entire seborrheic dermatitis-involv ed scalp area with a 15 min soak in as directed qday to qoday as tolerated for up to 2-4wks, then can taper as able when much improved to qwk or less prn itching. stock size 3 11/13/2008 Active Comment on above: Shampoo entire sebor rheic dermatitis-involved scalp area with a 15 min soak in as directed qday to qoday as tolerated for up to 2-4wks, then can taper as able when much improved to qwk or less prn itching. clonazePAM 0.5 mg oral tablet (4 sources) Benzodiazepine Start: 06-02-2022 End: 09-01-2022 clonazePAM (KLONOPIN) 0.5 mg tablet Indications: RLS (restless legs syndrome) Take 1 tab if not asleep within 30 minutes of going to bed. 30 tablet 2 06/02/2022 Active Comment on above: Take 1 tab if not as leep within 30 minutes of going to bed. COMPOUNDED PRESCRIPTION (7 sources) Start: 11-21-2008 COMPOUNDED PRESCRIPTION selenium sulfide shampoo 2.5% Use every other day to once a week. Alternate with Loprox shampoo. stock size 1 11/21/2008 Active Comment on above: selenium sulfide sha mpoo 2.5% Use every other day to once a week. Alternate with Loprox shampoo. finasteride 5 mg oral tablet (9 sources) 5-alpha Reductase Inhibitor Start: 02-27-2023 End: 10-07-2024 take 1 tablet by mouth once daily Finasteride 5 mg Tablet Discontinued 5 mg PO DAILY February 27, 2023 12:00am October 07, 2024 12:46pm Comment on above: Take 5 mg by mouth o nce daily. fluocinonide 0.5 mg/ml topical solution (7 sources) Corticosteroid Start: 08-31-2008 FLUOCINONIDE 0.05 % TOPICAL SOLN Indications: Seborrheic dermatitis, unspecified , Unspecified pruritic disorder Apply to itching scalp dermatitis areas selectively qday to bid prn and can taper as able when much improved. AVOID face and eyes/eyelids, and deep fold areas. 2oz 3 08/31/2008 Active Comment on above: Apply to itching sca lp dermatitis areas selectively qday to bid prn and can taper as able when much improved. AVOID face and eyes/eyelids, and deep fold areas. hydroCHLOROthiazide 12.5 mg / valsartan 80 mg oral tablet (7 sources) Thiazide Diuretic, Angiotensin 2 Receptor Jayla Start: 08-31-2008 valsartan/hydroch lorothiazide(DIOV AN HCT 80 MG-12.5 MG TAB) Take one(1) tablet daily. 0 08/31/2008 Active Comment on above: Take one(1) tablet d aily. ketoconazole 20 mg/ml medicated shampoo (7 sources) Azole Antifungal Start: 08-31-2008 ketoconazole(NIZO RAL 2 % SHAMPOO) Indications: Seborrheic dermatitis, unspecified , Unspecified pruritic disorder Cleanse scalp qod-qday x 2-4 weeks and then can taper toward qwk as able when rash is better, as tolerated 4oz 6 08/31/2008 Active Comment on above: Cleanse scalp qod-qd ay x 2-4 weeks and then can taper toward qwk as able when rash is better, as tolerated mecobalamin (7 sources) take 500 ug by mouth once daily mecobalamin (B12 ACTIVE ORAL) Take 500 mcg by mouth once daily. 0 Active Comment on above: Take 500 mcg by mout h once daily. minocycline 100 mg oral capsule (7 sources) Tetracycline-class Drug Start: 11-21-2008 MINOCYCLINE 100 MG CAP Take one(1) tablet two(2) times daily. 60 1 11/21/2008 Active Comment on above: Take one(1) tablet t wo(2) times daily. rOPINIRole 4 mg oral tablet (7 sources) Nonergot Dopamine Agonist take 1 tablet by mouth once daily at bedtime rOPINIRole (REQUIP) 4 mg tablet Take 4 mg by mouth daily at bedtime. 0 Active Comment on above: Take 4 mg by mouth d aily at bedtime. sertraline 50 mg oral tablet (3 sources) Serotonin Reuptake Inhibitor End: 01-06-2025 take 1 tablet by mouth once daily sertraline (ZOLOFT) 50 mg tablet Take 50 mg by mouth once daily. 01/06/2025 Discontinued varenicline 0.5 mg oral tablet (7 sources) Partial Cholinergic Nicotinic Agonist Start: 01-17-2009 VARENICLINE 0.5 MG TAB Take one(1) tablet two(2) times daily. 0 01/17/2009 Active Comment on above: Take one(1) tablet t wo(2) times daily. zolpidem tartrate 10 mg oral tablet (7 sources) gamma-Aminobutyric Acid-ergic Agonist Start: 01-17-2009 zolpidem tartrate(AMBIEN 10 MG TAB) Take one(1) tablet at bedtime as needed for insomnia. 0 01/17/2009 Active Comment on above: Take one(1) tablet a t bedtime as needed for insomnia. Problems Active Problems Problem Classification Problem Date Documented Date Episodic/Chronic Esophageal disorders (4 sources) Gastroesophageal reflux disease; Translations: [Gastro-esophageal reflux disease without esophagitis] Onset: 02-01-2025 02-01-2025 Chronic Essential hypertension (9 sources) Essential hypertension; Translations: [Essential (primary) hypertension] Onset: 08-25-2024 01-06-2025 Chronic Genitourinary symptoms and ill-defined conditions (3 sources) Acute retention of urine ; Translations: [Other retention of urine] Onset: 11-10-2024 03-19-2023 Episodic Miscellaneous mental health disorders (8 sources) Chronic insomnia; Translations: [Psychophysiologic insomnia] Onset: 01-06-2025 01-06-2025 Chronic Nonspecific chest pain (2 sources) Chest pain, unspecified; Translations: [Left sided chest pain] Onset: 09-07-2024 08-25-2024 Episodic Nutritional deficiencies (1 source) Vitamin D deficiency; Translations: [Vitamin D deficiency, unspecified] 03-07-2024 Chronic Osteoarthritis (9 sources) Bilateral arthritis of feet; Translations: [Primary osteoarthritis, right ankle and foot] Onset: 05-19-2024 05-19-2024 Chronic Other circulatory disease (1 source) Other specified symptoms and signs involving the circulatory and respiratory systems; Translations: [Other specified symptoms and signs involving the circulatory and respiratory systems] Onset: 03-24-2025 Episodic Other connective tissue disease (1 source) Pain in both feet; Translations: [Pain in right foot] 05-19-2024 Episodic Other connective tissue disease (1 source) Pain in left foot; Translations: [Pain in left foot] 01-27-2025 Episodic Other connective tissue disease (1 source) Pain in left hand; Translations: [Pain in left hand] Onset: 03-24-2025 Episodic Other hereditary and degenerative nervous system conditions (17 sources) Restless legs; Translations: [Restless legs syndrome] Onset: 01-06-2025 Chronic Other hereditary and degenerative nervous system conditions (1 source) Restless legs syndrome; Translations: [RLS (restless legs syndrome)] Onset: 01-06-2025 Chronic Other lower respiratory disease (1 source) Snoring; Translations: [Snoring] 07-08-2024 Episodic Other nervous system disorders (2 sources) Neuropathy; Translations: [Polyneuropathy, unspecified] Chronic Other nervous system disorders (1 source) Sleep-wake schedule disorder, delayed phase type; Translations: [Circadian rhythm sleep disorder, delayed sleep phase type] 01-06-2025 Chronic Other nervous system disorders (1 source) Circadian rhythm sleep disorder, delayed sleep phase type; 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] Onset: 01-06-2025 Chronic Other non-traumatic joint disorders (1 source) Arthritis of left foot 01-27-2025 Chronic Other nutritional; endocrine; and metabolic disorders (3 sources) Obesity; Translations: [Class 1 obesity without serious comorbidity with body mass index (BMI) of 34.0 to 34.9 in adult, unspecified obesity type] Onset: 02-01-2025 02-01-2025 Chronic Other nutritional; endocrine; and metabolic disorders (1 source) Body mass index (BMI) 34.0-34.9, adult; Translations: [Class 1 obesity without serious comorbidity with body mass index (BMI) of 34.0 to 34.9 in adult, unspecified obesity type] Onset: 02-01-2025 Chronic Residual codes; unclassified (2 sources) Insomnia; Translations: [Insomnia, unspecified] 03-08-2024 Episodic Residual codes; unclassified (1 source) Pain; Translations: [Pain, unspecified] 05-19-2024 Episodic Spondylosis; intervertebral disc disorders; other back problems (1 source) Cervical radiculopathy; Translations: [Radiculopathy, cervical region] 08-25-2024 Episodic Thyroid disorders (1 source) Nontoxic single thyroid nodule; Translations: [Nontoxic single thyroid nodule] Onset: 03-27-2025 Chronic Unclassified (1 source) Class 1 obesity without serious comorbidity with body mass index (BMI) of 34.0 to 34.9 in adult, unspecified obesity type; Translations: [Class 1 obesity without serious comorbidity with body mass index (BMI) of 34.0 to 34.9 in adult, unspecified obesity type] Onset: 02-01-2025 Urinary tract infections (1 source) Cystitis; Translations: [Cystitis, unspecified without hematuria] 10-07-2024 Episodic Past or Other Problems Problem Classification Problem Date Documented Da te Episodic/Chronic Other connective tissue disease (1 source) Pain in right foot; Translations: [Bilateral foot pain] Onset: 05-19-2024 Episodic Other connective tissue disease (1 source) Pain in left foot; Translations: [Bilateral foot pain] Onset: 05-19-2024 Episodic Other inflammatory condition of skin (19 sources) Seborrheic dermatitis; Translations: [Seborrheic dermatitis, unspecified] Onset: 09-04-2008 09-04-2008 Episodic Other inflammatory condition of skin (19 sources) Pruritus of skin; Translations: [Pruritus, unspecified] Onset: 09-04-2008 09-04-2008 Episodic Other lower respiratory disease (1 source) Snoring; Translations: [Snoring] Onset: 07-08-2024 Episodic Other nervous system disorders (19 sources) Skin sensation disturbance; Translations: [Unspecified disturbances of skin sensation] Onset: 01-23-2009 01-23-2009 Episodic Other skin disorders (19 sources) Disorder of skin appendage; Translations: [Other hair color and hair shaft abnormalities] Onset: 11-17-2008 11-17-2008 Episodic Residual codes; unclassified (1 source) Insomnia, unspecified; Translations: [Insomnia, unspecified type] Onset: 07-08-2024 Episodic Residual codes; unclassified (1 source) Pain, unspecified; Translations: [Pain] Onset: 05-19-2024 Episodic Skin and subcutaneous tissue infections (19 sources) Pyoderma; Translations: [Pyoderma] Onset: 11-17-2008 11-17-2008 Episodic Results Test Name Value Interpretation Reference Range Facility Absolute lymphocyte countOrd ered By: Kimani Gentile on 03-24-2025 Lymphocytes Auto (Unsp spec) [#/Vol] 1.73 10*3/uL 0.83-4.51 [facility] Absolute neutrophil countOrd ered By: Kimani Gentile on 03-24-2025 Neutrophils (Bld) [#/Vol] 4.8 10*3/uL 2.0-7.7 [facility] Anion gap in Serum or Plasma Ordered By: Kimani Gentile on 03-24-2025 Anion gap [Moles/Vol] 11 mmol/L 5-15 [facility] Automated lymphocyte count a s percentage of total leukocytesOrdered By: Kimani Gentile on 03-24-2025 Lymphocytes/100 WBC Auto (Unsp spec) 21.6 % 19-41 [facility] BUN/creatinine ratioOrdered By: Kimani Gentile on 03-24-2025 Urea nitrogen/Creatinine [Mass ratio] 26.2 mg/mg High 10-20 [facility] Basophil percentageOrdered B y: Kimani Gentile on 03-24-2025 Basophils/100 WBC (Bld) 1.1 % High 0-1 [facility] Bilirubin Test strip Ql (U)O rdered By: Kimani Gentile on 03-24-2025 Bilirubin Ql (U) Negative Negative [facility] Bilirubin, totalOrdered By: Kimani Gentile on 03-24-2025 Bilirubin [Mass/Vol] 0.21 mg/dL 0.00-1.30 [facility] CBC W/Diff, Automatedon Absolute Lymph 1.73 X10 3/uL Normal 0.83-4.51 [facility] Comment on above: Order Comment: Order Date: 03/24/25Order Info: 0184-1 - CBCD Performed By: #### M [id number] #### [facility] [address] [place], [address] Absolute Neut 4.8 X10 3/uL Normal 2.0-7.7 [facility] Comment on above: Order Comment: Order Date: 03/24/25Order Info: 0184-1 - CBCD Performed By: #### M [id number] #### [facility] [address] [place], [address] Basophils/100 WBC (Bld) 1.1 % High 0-1 [facility] Comment on above: Order Comment: Order Date: 03/24/25Order Info: 0184-1 - CBCD Performed By: #### M [id number] #### [facility] [address] [place], [address] Eosinophils/100 WBC (Bld) 6.4 % High 0-5 [facility] Comment on above: Order Comment: Order Date: 03/24/25Order Info: 0184-1 - CBCD Performed By: #### M [id number] #### [facility] [address] [place], [address] Erythrocyte distribution width (RBC) [Ratio] 13.1 % Normal 11.6-14.6 [facility] Comment on above: Order Comment: Order Date: 03/24/25Order Info: 0184-1 - CBCD Performed By: #### M [id number] #### [facility] [address] [place], [address] Hematocrit (Bld) [Volume fraction] 43.5 % Normal 40-54 [facility] Comment on above: Order Comment: Order Date: 03/24/25Order Info: 0184-1 - CBCD Performed By: #### M [id number] #### [facility] [address] [place], [address] Hemoglobin (Bld) [Mass/Vol] 14.2 g/dL Normal 13.0-16.5 [facility] Comment on above: Order Comment: Order Date: 03/24/25Order Info: 0184-1 - CBCD Performed By: #### M [id number] #### [facility] [address] [place], [address] IG% 0.600 Normal 0.0-0.9 [facility] Comment on above: Order Comment: Order Date: 03/24/25Order Info: 0184-1 - CBCD Result Comment: IG% - Immature Granulocytes (promyelocytes, myelocytes and metamyelocytes) > 1% indicates that a LEFT SHIFT is Present. Performed By: #### M [id number] #### [facility] [facility] [address] [place], [address] Lymphocytes/100 WBC (Bld) 21.6 % Normal 19-41 [facility] Comment on above: Order Comment: Order Date: 03/24/25Order Info: [id number] - CBCD Performed By: #### M 100.2200 #### [facility] [address] [place], [address] MCH (RBC) [Entitic mass] 30.4 pg Normal 27.0-32.0 [facility] Comment on above: Order Comment: Order Date: 03/24/25Order Info: [id number] - CBCD Performed By: #### M 100.2200 #### [facility] [address] [place], [address] MCHC (RBC) [Mass/Vol] 32.6 g/dL Normal 32-36 [facility] Comment on above: Order Comment: Order Date: 03/24/25Order Info: [id number] - CBCD Performed By: #### M 100.2200 #### [facility] [address] [place], [address] MCV (RBC) [Entitic vol] 93.1 fL Normal 80-94 [facility] Comment on above: Order Comment: Order Date: 03/24/25Order Info: [id number] - CBCD Performed By: #### M 100.2200 #### [facility] [address] [place], [address] Monocytes/100 WBC (Bld) 10.8 % High 0-10 [facility] Comment on above: Order Comment: Order Date: 03/24/25Order Info: 4-1 - CBCD Performed By: #### M 100.2200 #### [facility] [address] [place], [address] Neutrophils/100 WBC (Bld) 59.5 % Normal 47-70 [facility] Comment on above: Order Comment: Order Date: 03/24/25Order Info: [id number]- - CBCD Performed By: #### M 100.2200 #### [facility] [address] [place], [address] Nucleated RBC (Bld) [#/Vol] 0 10*3/uL Normal 0-5 [facility] Comment on above: Order Comment: Order Date: 03/24/25Order Info: [id number] - CBCD Performed By: #### M 100.2200 #### [facility] [address] [place], [address] Platelet mean volume (Bld) [Entitic vol] 9.7 fL Normal 6.2-12.0 [facility] Comment on above: Order Comment: Order Date: 03/24/25Order Info: [id number] - CBCD Performed By: #### M 100.2200 #### [facility] [address] [place], [address] Platelets (Bld) [#/Vol] 277 10*3/uL Normal 150-450 [facility] Comment on above: Order Comment: Order Date: 03/24/25Order Info: [id number] - CBCD Performed By: #### M 100.2200 #### [facility] [address] [place], [address] RBC (Bld) [#/Vol] 4.67 10*6/uL Normal 4.6-6.2 [facility] Comment on above: Order Comment: Order Date: 03/24/25Order Info: [id number] - CBCD Performed By: #### M 100.2200 #### [facility] [address] [place], [place], [address] (666) RDW SD 44.6 fl High 35.1-43.9 [facility] Comment on above: Order Comment: Order Date: 03/24/25Order Info: [id number]- - CBCD Performed By: #### M 100.2200 #### [facility] [address] [place], [place], [address] (690) WBC (Bld) [#/Vol] 8.0 10*3/uL Normal 4.4-11.0 [facility] Comment on above: Order Comment: Order Date: 03/24/25Order Info: [id number] - CBCD Performed By: #### M 100.2200 #### [facility] [address] [place], [address] Calculated very low density lipoprotein (VLDL) cholesterol measurementOrdered By: Kimani Gentile on 03-24-2025 Calculated very low density lipoprotein (VLDL) cholesterol measurement 33 mg/dL 5-40 [facility] Carbon dioxide, total [Moles /volume] in Central venous bloodOrdered By: Kimani Gentile on 03-24-2025 CO2 [Moles/Vol] 22.1 mmol/L 21.0-32.0 [facility] Chest PA and Lateralon 03-24 Chest PA and Lateral [facility] Imaging Services [address] [place] [address] Chest PA and Lateral MR#: [id number] Acct: [id number] Name: MAXIMINO GILMORE Rep #: [id number] : 1960 M 64 From: Gil Gonzalez MD PCP: Dr. Kimani Gentile MD Status: REG CLI Study: Chest PA and Lateral Date of Exam: 03/24/25 Exam# [id number] Ordering Dr: Kimani Gentile MD PROCEDURE: CHEST PA AND LATERAL 03/24/2025 REASON FOR EXAM: RHONCHI TECHNIQUE: Frontal and lateral views of the chest. COMPARISON: Two-view chest, 08/17/2020. FINDINGS: The lungs are clear. The heart borders mediastinum and pulmonary vascular pattern are normal. The upper abdominal bowel gas pattern is normal. There are no bony abnormalities. RAD/Chest PA and Lateral IMPRESSION: No evidence of acute cardiopulmonary pathology. Reading Location: [id number] CC: Dr. Kimani Gentile MD Uniform Cap Operator: Signed Normal [facility] Chloride assayOrdered By: Elysia Gentile on 03-24-2025 Chloride [Moles/Vol] 104 mmol/L 98-108 [facility] Comprehensive Metabolic Prof ilon 03-24-2025 Albumin [Mass/Vol] 4.3 g/dL Normal 3.4-4.8 [facility] Comment on above: Order Comment: Order Date: 03/24/25Order Info: [id number] - CMPOrder Info: [id number] - LIPIDOrder Info: [id number] - MG Performed By: #### L 501.9985, L100.0100, L500.4100, L500.4050, L501.5200 ####[facility] [address] [place], [place], [address] Albumin/Globulin [Mass ratio] 1.7 {ratio} Normal 0.9-2.4 [facility] Comment on above: Order Comment: Order Date: 03/24/25Order Info: [id number] - CMPOrder Info: [id number] - LIPIDOrder Info: [id number] - MG Performed By: #### L 501.9985, L100.0100, L500.4100, L500.4050, L501.5200 ####[facility] [address] [place], [address] ALK PHOS 115 U/L Normal 40-129 [facility] Comment on above: Order Comment: Order Date: 03/24/25Order Info: [id number] - CMPOrder Info: [id number] - LIPIDOrder Info: [id number] - MG Performed By: #### L 501.9985, L100.0100, L500.4100, L500.4050, L501.5200 ####[facility] [address] [facility] [place], [address] ALT [Catalytic activity/Vol] 35 U/L Normal <=46 [facility] Comment on above: Order Comment: Order Date: 03/24/25Order Info: [id number] - CMPOrder Info: [id number] - LIPIDOrder Info: [id number] - MG Performed By: #### L 501.9985, L100.0100, L500.4100, L500.4050, L501.5200 ####[facility] [address] [facility] [place], [address] AST [Catalytic activity/Vol] 28 U/L Normal <=37 [facility] Comment on above: Order Comment: Order Date: 03/24/25Order Info: [id number] - CMPOrder Info: [id number] - LIPIDOrder Info: [id number] - MG Performed By: #### L 501.9985, L100.0100, L500.4100, L500.4050, L501.5200 ####[facility] [address] [place], [address] Bilirubin [Mass/Vol] 0.21 mg/dL Normal 0.00-1.30 [facility] Comment on above: Order Comment: Order Date: 03/24/25Order Info: [id number] - CMPOrder Info: [id number] - LIPIDOrder Info: [id number] - MG Performed By: #### L 501.9985, L100.0100, L500.4100, L500.4050, L501.5200 ####[facility] [address] [place], [address] BUN/CRE 26.2 RATIO High 10-20 [facility] Comment on above: Order Comment: Order Date: 03/24/25Order Info: [id number] - CMPOrder Info: [id number] - LIPIDOrder Info: [id number] - MG Performed By: #### L 501.9985, L100.0100, L500.4100, L500.4050, L501.5200 ####[facility] [address] [place], [address] Calcium [Mass/Vol] 10.3 mg/dL Normal 7.6-11.0 [facility] Comment on above: Order Comment: Order Date: 03/24/25Order Info: [id number] - CMPOrder Info: [id number] - LIPIDOrder Info: [id number] - MG Performed By: #### L 501.9985, L100.0100, L500.4100, L500.4050, L501.5200 ####[facility] [address] [place], [address] Chloride [Moles/Vol] 104 mmol/L Normal 98-108 [facility] Comment on above: Order Comment: Order Date: 03/24/25Order Info: [id number] - CMPOrder Info: [id number] - LIPIDOrder Info: [id number] - MG Performed By: #### L 501.9985, L100.0100, L500.4100, L500.4050, L501.5200 ####[facility] [address] [place], [address] CO2 [Moles/Vol] 22.1 mmol/L Normal 21.0-32.0 [facility] Comment on above: Order Comment: Order Date: 03/24/25Order Info: [id number] - CMPOrder Info: [id number] - LIPIDOrder Info: [id number] - MG Performed By: #### L 501.9985, L100.0100, L500.4100, L500.4050, L501.5200 ####[facility] [address] [place], [address] Creatinine [Mass/Vol] 0.92 mg/dL Normal 0.70-1.20 [facility] Comment on above: Order Comment: Order Date: 03/24/25Order Info: [id number] - CMPOrder Info: [id number] - LIPIDOrder Info: [id number] - MG Performed By: #### L 501.9985, L100.0100, L500.4100, L500.4050, L501.5200 ####[facility] [address] [place], [place], [id number] GAP 11 Normal 5-15 [facility] Comment on above: Order Comment: Order Date: 03/24/25Order Info: [id number] - CMPOrder Info: [id number] - LIPIDOrder Info: [id number] - MG Performed By: #### L 501.9985, L100.0100, L500.4100, L500.4050, L501.5200 ####[facility] [address] [place], [place], [address] GFR/1.73 sq M.predicted among non-blacks MDRD (S/P/Bld) [Vol rate/Area] 94 mL/min/{1.73_m2} Normal >60 [facility] Comment on above: Order Comment: Order Date: 03/24/25Order Info: [id number] - CMPOrder Info: [id number] - LIPIDOrder Info: [id number] - MG Result Comment: mL/m in/1.73m2 CKD-EPI Creatinine Equation (2020) Performed By: #### L 501.9985, L100.0100, L500.4100, L500.4050, L501.5200 ####[facility] [address] [place], [address] Globulin (S) [Mass/Vol] 2.5 g/dL Normal 2.2-4.2 [facility] Comment on above: Order Comment: Order Date: 03/24/25Order Info: [id number] - CMPOrder Info: [id number] - LIPIDOrder Info: [id number] - MG Performed By: #### L 501.9985, L100.0100, L500.4100, L500.4050, L501.5200 ####[facility] [address] [place], [address] Glucose [Mass/Vol] 114 mg/dL High 70-99 [facility] Comment on above: Order Comment: Order Date: 03/24/25Order Info: 07-1 - CMPOrder Info: [id number] - LIPIDOrder Info: [id number] - MG Performed By: #### L 501.9985, L100.0100, L500.4100, L500.4050, L501.5200 ####[facility] [address] [place], [address] Potassium [Moles/Vol] 4.5 mmol/L Normal 3.3-5.1 [facility] Comment on above: Order Comment: Order Date: 03/24/25Order Info: [id number] - CMPOrder Info: [id number] - LIPIDOrder Info: [id number] - MG Performed By: #### L 501.9985, L100.0100, L500.4100, L500.4050, L501.5200 ####[facility] [address] [place], [address] Sodium [Moles/Vol] 138 mmol/L Normal 133-145 [facility] Comment on above: Order Comment: Order Date: 03/24/25Order Info: [id number] - CMPOrder Info: [id number] - LIPIDOrder Info: [id number] - MG Performed By: #### L 501.9985, L100.0100, L500.4100, L500.4050, L501.5200 ####[facility] [address] [place], [place], [phone] T PROT 6.8 g/dL Normal 5.9-8.4 [facility] Comment on above: Order Comment: Order Date: 03/24/25Order Info: [id number] - CMPOrder Info: [id number] - LIPIDOrder Info: [id number] - MG Performed By: #### L 501.9985, L100.0100, L500.4100, L500.4050, L501.5200 ####[facility] [address] [place], [place], [id number] Urea nitrogen [Mass/Vol] 24 mg/dL High 4-19 [facility] Comment on above: Order Comment: Order Date: 03/24/25Order Info: [id number] - CMPOrder Info: [id number] - LIPIDOrder Info: [id number] - MG Performed By: #### L 501.9985, L100.0100, L500.4100, L500.4050, L501.5200 ####[facility] [address] [place], [place], [phone] Eosinophil percentageOrdered By: Kimani Gentile on 03-24-2025 Eosinophils/100 WBC (Bld) 6.4 % High 0-5 [facility] Erythrocyte distribution wid th ratioOrdered By: Kimani Gentile on 03-24-2025 Erythrocyte distribution width (RBC) [Ratio] 13.1 % 11.6-14.6 [facility] Erythrocyte distribution wid th standard deviationOrdered By: Kimani Gentile on 03-24-2025 Erythrocyte distribution width (RBC) [Ratio] 44.6 fl High 35.1-43.9 [facility] Glomerular filtration rate ( GFR) estimation/1.73 sq m using serum, plasma, or whole bOrdered By: Kimani Gentile on 03-24-2025 GFR/1.73 sq M.predicted among non-blacks MDRD (S/P/Bld) [Vol rate/Area] 94 mL/min/{1.73_m2} >60 [facility] Comment on above: mL/min/1.73m2 CKD-EP I Creatinine Equation (2020) Hand 2 Viewson 03-24-2025 Hand 2 Views [facility] Imaging Services [address] [place] [address] Hand 2 Views MR#: [id number] Acct: [id number] Name: MAXIMINO GILMORE Rep #: [id number] : 1960 M 64 From: Maximino Mahan MD PCP: Dr. Kimani Gentile MD Status: REG CLI Study: Hand 2 Views Date of Exam: 03/24/25 Exam# [id number] Ordering Dr: Kimani Gentile MD EXAM: XR Left Hand, 2 Views CLINICAL INDICATION: ATTENTION 4 DIGIT, S/P FALL TECHNIQUE: Frontal and lateral views of the left hand. COMPARISON: No relevant prior studies available. FINDINGS: BONES/JOINTS: Severe degenerative changes of the intercarpal joints. Severe degenerative change of the radiocarpal joints. Mild degenerative change of the 1st carpometacarpal joint. No acute fracture. No dislocation. SOFT TISSUES: Soft tissue swelling. No radiopaque foreign body. RAD/Hand 2 Views IMPRESSION: Degenerative changes as above. Reading Location: [facility] CC: Dr. Kimani Gentile MD Uniform Cap Operator: Signed Normal [facility] Hematocrit Auto (Bld) [Volum e fraction]Ordered By: Kimani Gentile on 03-24-2025 Hematocrit (Bld) [Volume fraction] 43.5 % 40-54 [facility] Hemoglobin A1con 03-24-2025 HbA1c (Bld) [Mass fraction] 5.8 % High <=5.6 [facility] Comment on above: Order Comment: Order Date: 03/24/25Order Info: [id number] - A1C Result Comment: Norm al < 5.7 % Prediabetic 5.7 - 6.4 % Diabetic >or= 6.5 % Please note range changes. Performed By: #### L 501.9985, L100.0100, L500.4100, L500.4050, L501.5200 ####[facility] [address] [place], [address] Hemoglobin A1c percentageOrd ered By: Kimani Gentile on 03-24-2025 HbA1c (Bld) [Mass fraction] 5.8 % High <5.7 [facility] Comment on above: Normal < 5.7 % Predi abetic 5.7 - 6.4 % Diabetic >or= 6.5 % Please note range changes. Hemoglobin measurementOrdere d By: Kimani Gentile on 03-24-2025 Hemoglobin (Bld) [Mass/Vol] 14.2 g/dL 13.0-16.5 [facility] Immature granulocytes/100 WB C Auto (Bld)Ordered By: Kimani Gentile on 03-24-2025 Immature granulocytes/100 WBC (Bld) 0.600 % 0.0-0.9 [facility] Comment on above: IG% - Immature Granu locytes (promyelocytes, myelocytes and metamyelocytes) > 1% indicates that a LEFT SHIFT is Present. Ketones Test strip Ql (U)Ord ered By: Kimani Gentile on 03-24-2025 Ketones Ql (U) Negative Negative [facility] LDL calc ser/plasOrdered By: Kimani Gentile on 03-24-2025 Cholesterol in LDL [Mass/Vol] 119 mg/dL [facility] Comment on above: Ohocuozdqg=440-803 m g/dL & Higher Qted=634 mg/dL or greater Laboratory - Chemistry and C hemistry - challengeOrdered By: Kimani Gentile on 03-24-2025 AST [Catalytic activity/Vol] 28 U/L <38 [facility] Lipid Profileon 03-24-2025 CHOL:HDL 5.28 Normal [facility] Comment on above: Order Comment: Order Date: 03/24/25Order Info: [id number] - CMPOrder Info: [id number] - LIPIDOrder Info: [id number] - MG Performed By: #### L 501.9985, L100.0100, L500.4100, L500.4050, L501.5200 ####[facility] [address] [place], [address] Cholesterol [Mass/Vol] 188 mg/dL Normal <=200 [facility] Comment on above: Order Comment: Order Date: 03/24/25Order Info: [id number] - CMPOrder Info: [id number] - LIPIDOrder Info: [id number] - MG Result Comment: Chol esterol level, Desirable <200 mg/dL Borderline high cholesterol 200-239 mg/dL High cholesterol >=240 mg/dL Recommendations of the NCEP Adult Treatment Panel for the following risk-cutoff thresholds for the [place] population. Performed By: #### L 501.9985, L100.0100, L500.4100, L500.4050, L501.5200 ####[facility] [address] [place], [address] Cholesterol in HDL [Mass/Vol] 36 mg/dL Low [facility] Comment on above: Order Comment: Order Date: 03/24/25Order Info: [id number] - CMPOrder Info: [id number] - LIPIDOrder Info: [id number] - MG Result Comment: Marie onal Cholesterol Education Program (NCEP) guidelines: <40 mg/dL: Low HDL-cholesterol (major risk factor for CHD) >= 60 mg/dL: High HDL-cholesterol (negative risk factor for CHD) HDL-cholesterol is affected by a number of factors, e.g. smoking, exercise, hormones, sex and age. Performed By: #### L 501.9985, L100.0100, L500.4100, L500.4050, L501.5200 ####[facility] [address] [place], [address] Cholesterol in LDL [Mass/Vol] 119 mg/dL Normal [facility] Comment on above: Order Comment: Order Date: 03/24/25Order Info: [id number] - CMPOrder Info: [id number] - LIPIDOrder Info: [id number] - MG Result Comment: Bord xztpbh=314-219 mg/dL Higher Xrrm=260 mg/dL or greater Performed By: #### L 501.9985, L100.0100, L500.4100, L500.4050, L501.5200 ####[facility] [address] [place], [address] Cholesterol in VLDL [Mass/Vol] 33 mg/dL Normal 5-40 [facility] Comment on above: Order Comment: Order Date: 03/24/25Order Info: [id number] - CMPOrder Info: [id number] - LIPIDOrder Info: [id number] - MG Performed By: #### L 501.9985, L100.0100, L500.4100, L500.4050, L501.5200 ####[facility] [address] [place], [address] Triglyceride [Mass/Vol] 165 mg/dL Normal [facility] Comment on above: Order Comment: Order Date: 03/24/25Order Info: [id number] - CMPOrder Info: [id number] - LIPIDOrder Info: - MG Result Comment: The drugs N-Acetylcysteine and Metamizole may falsely depress this assay. Normal range: <150 mg/dL Borderline High: 150-199 mg/dL High: 200-499 mg/dL Very High: >500 mg/dL Performed By: #### L 501.9985, L100.0100, L500.4100, L500.4050, L501.5200 ####[facility] [address] [place], [address] MCV (mean corpuscular volume ) determinationOrdered By: Kimani Gentile on 03-24-2025 MCV (RBC) [Entitic vol] 93.1 fL 80-94 [facility] Magnesiumon 03-24-2025 Magnesium [Mass/Vol] 2.2 mg/dL Normal 1.5-2.2 [facility] Comment on above: Order Comment: Order Date: 03/24/25Order Info: [id number] - CMPOrder Info: [id number] - LIPIDOrder Info: [id number] - MG Performed By: #### L 501.9985, L100.0100, L500.4100, L500.4050, L501.5200 ####[facility] [address] [place], [address] Magnesium measurement (mass/ volume)Ordered By: Kimani Gentile on 03-24-2025 Magnesium (Unsp spec) [Mass/Vol] 2.2 mg/dL 1.5-2.2 [facility] Mean corpuscular hemoglobin (MCH) determinationOrdered By: Kimani Gentile on 03-24-2025 MCH (RBC) [Entitic mass] 30.4 pg 27.0-32.0 [facility] Mean corpuscular hemoglobin concentration (MCHC) determinationOrdered By: Kimani Gentile on 03-24-2025 MCHC (RBC) [Mass/Vol] 32.6 g/dL 32-36 [facility] Mean platelet volume determi nationOrdered By: Kimani Gentile on 03-24-2025 Platelet mean volume (Bld) [Entitic vol] 9.7 fL 6.2-12.0 [facility] Microscopic analysis of urin e for red blood cells (RBC)Ordered By: Kimani Gentile on 03-24-2025 Microscopic analysis of urine for red blood cells (RBC) 0 SEEN /hpf 0- [facility] Monocyte percentageOrdered B y: Kimani Gentile on 03-24-2025 Monocytes/100 WBC (Bld) 10.8 % High 0-10 [facility] Mucus LM Ql (Urine sed)Order ed By: Kimani Gentile on 03-24-2025 Mucus Ql (Urine sed) 0 SEEN /hpf [facility] Neutrophil percentageOrdered By: Kimani Gentile on 03-24-2025 Neutrophils/100 WBC (Bld) 59.5 % 47-70 [facility] Nitrite Test strip Ql (U)Ord ered By: Kimani Gentiel on 03-24-2025 Nitrite Ql (U) Negative Negative [facility] Nucleated red blood cell per centageOrdered By: Kimani Gentile on 03-24-2025 Nucleated RBC/100 WBC (Bld) [Ratio] 0 % 0-5 [facility] Platelet countOrdered By: Elysia Gentile on 03-24-2025 Platelets (Bld) [#/Vol] 277 10*3/uL 150-450 [facility] Potassium measurement (mass/ volume)Ordered By: Kimani Gentile on 03-24-2025 Potassium (Unsp spec) [Mass/Vol] 4.5 mmol/L 3.3-5.1 [facility] Protein Test strip Ql (U)Ord ered By: Kimani Gentile on 03-24-2025 Protein Ql (U) Negative Negative [facility] RBC Auto (Bld) [#/Vol]Ordere d By: Kimani Gentile on 03-24-2025 RBC (Bld) [#/Vol] 4.67 10*6/uL 4.6-6.2 [facility] Screening total cholesterol/ high density lipoprotein (HDL) cholesterol ratioOrdered By: Kimani Gentile on 03-24-2025 Cholesterol.total/Dinah sterol in HDL [Mass ratio] 5.28 {ratio} [facility] Serum creatinine measurement (mass/volume)Ordered By: Kimani Gentile on 03-24-2025 Creatinine [Mass/Vol] 0.92 mg/dL 0.70-1.20 [facility] Serum globulin measurementOr dered By: Kimani Gentile on 03-24-2025 Globulin (S) [Mass/Vol] 2.5 g/dL 2.2-4.2 [facility] Serum glucose measurement (m ass/volume)Ordered By: Kimani Gentile on 03-24-2025 Glucose [Mass/Vol] 114 mg/dL High 70-99 [facility] Serum or plasma alanine tobias otransferase (ALT) measurementOrdered By: Kimani Gentile on 03-24-2025 ALT [Catalytic activity/Vol] 35 U/L <47 [facility] Serum or plasma albumin ruth ann urement (mass/volume)Ordered By: Kimani Gentile on 03-24-2025 Albumin [Mass/Vol] 4.3 g/dL 3.4-4.8 [facility] Serum or plasma albumin/glob ulin mass ratioOrdered By: Kimani Gentile on 03-24-2025 Albumin/Globulin [Mass ratio] 1.7 {ratio} 0.9-2.4 [facility] Serum or plasma alkaline moni sphatase measurementOrdered By: Kimani Gentile on 03-24-2025 ALP [Catalytic activity/Vol] 115 U/L 40-129 [facility] Serum or plasma calcium ruth ann urement (mass/volume)Ordered By: Kimani Gentile on 03-24-2025 Calcium [Mass/Vol] 10.3 mg/dL 7.6-11.0 [facility] Serum or plasma cholesterol in HDL measurement (mass/volume)Ordered By: Kimani Gentile on 03-24-2025 Cholesterol in HDL [Mass/Vol] 36 mg/dL Low >40 [facility] Comment on above: National Cholesterol Education Program (NCEP) guidelines:<40 mg/dL: Low HDL-cholesterol (major risk factor for CHD)>= 60 mg/dL: High HDL-cholesterol (negative risk factor for CHD)HDL-cholesterol is affected by a number of factors, e.g. smoking, exercise, hormones, sex and age. Serum or plasma cholesterol measurement (mass/volume)Ordered By: Kimani Gentile on 03-24-2025 Cholesterol [Mass/Vol] 188 mg/dL <201 [facility] Comment on above: Cholesterol level, D esirable <200 mg/dLBorderline high cholesterol 200-239 mg/dLHigh cholesterol >=240 mg/dLRecommendations of the NCEP Adult Treatment Panel for the following risk-cutoff thresholds for the [place] population. Serum or plasma urea nitroge n measurement (mass/volume)Ordered By: Kimani Gentile on 03-24-2025 Urea nitrogen [Mass/Vol] 24 mg/dL High 4-19 [facility] Sodium levelOrdered By: Kimani Gentile on 03-24-2025 Sodium [Moles/Vol] 138 mmol/L 133-145 [facility] Squamous epithelial cells de tection in urine sediment by light microscopyOrdered By: Kimani Gentile on 03-24-2025 Epithelial cells.squamous LM Ql (Urine sed) 0-5 SEEN /hpf 0-5 [facility] Total proteinOrdered By: Seng Gentile on 03-24-2025 Protein [Mass/Vol] 6.8 g/dL 5.9-8.4 [facility] Triglycerides measurementOrd ered By: Kimani Gentile on 03-24-2025 Triglyceride [Mass/Vol] 165 mg/dL <199 [facility] Comment on above: The drugs N-Acetylcy steine and Metamizole may falsely depress this assay. Normal range: <150 mg/dLBorderline High: 150-199 mg/dLHigh: 200-499 mg/dLVery High: >500 mg/dL Urinalysis, Completeon 03-24 EPI,SQUAMOUS 0-5 SEEN Normal 0-5 [facility] Comment on above: Order Comment: Urine , Random Performed By: #### M 100.2200 #### [facility] [address] [place], [address] WBC 0-5 SEEN Normal 0-5 [facility] Comment on above: Order Comment: Urine , Random Performed By: #### M 100.2200 #### [facility] [address] [place], [address] BACTERIA 0 SEEN Normal None Seen [facility] Comment on above: Order Comment: Urine , Random Performed By: #### M 100.2200 #### [facility] [address] [place], [address] Mucus Ql (Urine sed) 0 SEEN Normal [facility] Comment on above: Order Comment: Urine , Random Performed By: #### M 100.2200 #### [facility] [address] [place], [address] RBC 0 SEEN Normal 0-5 [facility] Comment on above: Order Comment: Urine , Random Performed By: #### M 100.2200 #### [facility] [address] [place], [address] Urine clarityOrdered By: Seng Gentile on 03-24-2025 Clarity (U) Clear Clear [facility] Urine color determinationOrd ered By: Kimani Gentile on 03-24-2025 Color (U) Yellow Yellow [facility] Urine glucose detectionOrder ed By: Kimani Gentile on 03-24-2025 Glucose Ql (U) Normal mg/dl Normal [facility] Urine leukocyte esterase det ection by dipstickOrdered By: Kimani Gentile on 03-24-2025 Leukocyte esterase Test strip Ql (U) Negative Negative [facility] Urine pHOrdered By: Kimani boogie on 03-24-2025 pH (U) 6.0 [pH] 5.0 - 8.0 [facility] Urine sediment bacteria coun t by microscopy (number/high power field)Ordered By: Kimani Gentile on 03-24-2025 Bacteria LM.HPF (Urine sed) [#/Area] 0 /[HPF] None Seen [facility] Urine specific gravity measu rementOrdered By: Kimani Gentile on 03-24-2025 Specific gravity (U) [Rel density] 1.020 1.002-1.030 [facility] Urine urobilinogen measureme ntOrdered By: Kimani Gentile on 03-24-2025 Urobilinogen Ql (U) Normal mg/dl Normal [facility] Vitamin D,25 Hydroxyon 03-24 Vitamin D 25-OH 50.1 ng/mL Normal 30-100 [facility] Comment on above: Order Comment: Order Date: 03/24/25Order Info: [id number] - CMPOrder Info: [id number] - LIPIDOrder Info: [id number] - MG Result Comment: Latonia min D Status Deficiency: <20 ng/mL (50nmol/L) Insufficiency: 20-30 ng/mL (50-75 nmol/L) Sufficiency: 30-100 ng/mL (75-250 nmol/L) Toxicity: >100 ng/mL (>250 nmol/L) Performed By: #### M 100.2200 #### [facility] [address] [place] [address]. [place], [address] White blood cell (WBC) count Ordered By: Kimani Gentile on 03-24-2025 WBC (Bld) [#/Vol] 8.0 10*3/uL 4.4-11.0 [facility] White blood cell countOrdere d By: Kimani Gentile on 03-24-2025 White blood cell count 0-5 SEEN /hpf 0-5 [facility] CNOVon 03-14-2025 CNOV Office Visit (PODIWS ) MAXIMINO GILMORE ([id number]) 1960 M Date Time Provider Department 03/14/25 4:00 PM ENRIQUE WORTHY PODIWS During your visit today, we recorded the following information about you: Consuelo Prado LPN 03/14/2025 6:10 PM Signed AMB ROOMING INTAKE FLOWSHEET DATA Pain Pain Level: 5 Pain Location: Foot-Left Description: Dull Duration Amount of Time: 1 Duration Units: Months Frequency: Intermittent Intervention/Comfort measure: Reposition, Relaxation Patient presents with: Left Foot - Established Patient, Pain: 1 month since injection CORINNE Munoz Matthew 03/14/2025 4:15 PM Signed - Continue taking ibuprofen as needed for pain relief. - Try placing your shoe inserts into your Monique supportive shoes and wear them during activities that aggravate your foot. - Monitor your foot pain over the coming days. - If your pain does not improve or worsens, contact the office to discuss next steps, which may include a prescription anti-inflammatory (such as meloxicam) or an ultrasound-guided steroid injection. Enrique Worthy 03/14/2025 6:10 PM Signed Subjective Maximino is a 64-year-old male presenting for follow-up of left foot pain. Left Foot Pain: - Received an injection approximately one month ago, which alleviated pain on the dorsum of the foot. - Current pain has shifted medially, described as tolerable but exacerbated by physical activity such as mowing. - Taking ibuprofen with partial relief. - Wears Monique shoes; has inserts for Skechers but not currently using them. Musculoskeletal: (+) left foot pain, (-) left second/third tarsometatarsal joint pain PAST MEDICAL HISTORY Diagnosis Date Essential hypertension, benign Current Outpatient Medications Medication Sig Dispense Refill traZODone (DESYREL) 100 mg tablet Take 1 tablet by mouth daily at bedtime. 90 tablet 1 gabapentin (NEURONTIN) 600 mg tablet Take 1.5 tablets at 5PM, 1 tablet at 8PM, and 1 tablet at 11PM 945 tablet 1 MULTIVITAMIN ORAL Take 1 tablet by mouth once daily. cyanocobalamin (VITAMIN B-12) 500 mcg tablet Take 1 tablet by mouth once daily. cetirizine HCl/pseudoephedrine (ZYRTEC-D ORAL) Take 20 mg by mouth once daily. AM losartan (COZAAR) 100 mg tablet Take 100 mg by mouth once daily. ICMJA-IEHGU-6-DHA-EPA- LIPIDS ORAL Take 500 mg by mouth once daily. vitamin D3-folic acid 2,500 unit- 1 mg tab Take 2,000 Units by mouth once daily. famotidine(PEPCID AC 10 MG TAB) Take one(1) tablet daily. 0 aspirin(HALFPRIN 81 MG TAB) Take one(1) tablet daily. 0 No current facility-administered medications for this visit. Family History Problem Relation Age of Onset Arthritis Mother Hypertension Mother Arthritis Father Cancer Father prostate Heart Father Hypertension Father Diabetes Father Type II Arthritis Maternal Grandmother Hypertension Maternal Grandmother Arthritis Maternal Grandfather Heart Maternal Grandfather Hypertension Maternal Grandfather Arthritis Paternal Grandmother Heart Paternal Grandmother Hypertension Paternal Grandmother Alzheimer's Disease Paternal Grandfather Arthritis Paternal Grandfather Cancer Paternal Grandfather prostate Hypertension Paternal Grandfather Anesthesia Problems No Family History Objective There were no vitals taken for this visit. - Cardiovascular: Dorsalis pedis and posterior tibial pulses palpable in the left foot; capillary refill time <5 seconds. - Skin: Warm temperature from proximal to distal; hair growth present; no open sores noted on the left foot. - Musculoskeletal: - Left Foot: - No pain with palpation of the second or third tarsometatarsal joints. - Pain present at the navicular cuneiform joint. Labs: (May 2024) Creatinine: 0.92 mg/dL Imaging: (January 2025) Bilateral Foot X-rays: Significant arthritis in the left second tarsometatarsal joint and navicular cuneiform joint; arthritic changes noted in the right first metatarsophalangeal joint. Assessment AND Plan 1. Arthritis of left midfoot (M19.072) - Patient reports improvement in initial pain following corticosteroid injection in the second tarsometatarsal joint, but now experiences tolerable pain in navicular cun joint, exacerbated by physical activity. - Examination reveals no tenderness in the left second or third tarsometatarsal joints, but pain is present in the navicular cuneiform joint. - January 2025 X-rays show significant arthritis in the second tarsometatarsal joint and navicular cuneiform joint of the left foot. - Discussed treatment options: continue wearing Monique shoes, use inserts, and take ibuprofen as needed. - Advised patient to try inserts in Monique shoes and monitor pain. - If pain worsens, consider prescribing meloxicam after checking blood counts and kidney function, or refer to musculoskeletal radiology for (more content not included)... Normal [facility] ANES POSTPROC EVALon 025 ANES POSTPROC EVAL HNO ID: [id number] Author: KRISTIAN HARRIS MD Service: Anesthesiology Author Type: Anesthesiologist Type: Anesthesia Postprocedure Evaluation Filed: 02/06/2025 12:19 Note Text: POST ANESTHESIA EVALUATION NOTE : 1960 Procedure Summary Date: 02/06/25 Room / Location: DE OR / [place] OR Anesthesia Start: 1009 Anesthesia Stop: 1040 Procedure: INJECT ANKLE (Left: Foot) Diagnosis: Arthritis of left midfoot (Arthritis of left midfoot [M19.072]) Surgeons: Enrique Worthy Responsible Provider: Сергей Dawkins MD Anesthesia Type: MAC ASA Status: 2 Anesthesia Type: MAC Last Vitals Vitals Value Taken Time BP 123/57 02/06/25 1130 Temp 37.1 ?C (98.8 ?F) 02/06/25 1039 Pulse 62 02/06/25 1148 Resp 11 02/06/25 1130 SpO2 93 % 02/06/25 1148 Vitals shown include unfiled device data. Post Anesthesia Patient Status Patient Evaluation: bedside. Anticipated Disposition: phase 2 then home. Neurological Status: aware and responsive. Pulmonary Status: breathing comfortably on room air Airway Control: returned to baseline unsupported. Cardiovascular Status: stable. Pain Management: clinically adequate Postoperative Hydration: acceptable. Intraoperative Events: no significant anesthesia events Post Operative Nausea/Vomiting Status: no significant post operative nausea or vomiting Recommendation: continue current plan of care. Anesthesia Observations No Documentation SIGNATURE: Kristian Harris MD PATIENT NAME: Maximino Gilmore DATE: February 06, 2025 TIME: 12:19 PM CSN: [id number] [facility] ANES PRE-OPon 02-06-2025 ANES PRE-OP HNO ID: [id number] Author: СЕРГЕЙ DAWKINS MD Service: Anesthesiology Author Type: Anesthesiologist Type: Anesthesia Preprocedure Evaluation Filed: 02/06/2025 08:40 Note Text: ANESTHESIOLOGY DAY OF SURGERY NOTE : 1960 Procedure Information Date/Time: 02/06/2545 Procedure: INJECT ANKLE (Left) Location: DE OR02 / [place] OR Surgeons: Enrique Worthy Estimated body mass index is 34.18 kg/m? as calculated from the following: Height as of 02/01/25: 182.9 cm (6'). Weight as of 02/01/25: 114.3 kg (252 lb). Most recent hematocrit and potassium results: Hematocrit 46.6 11/04/2023 Potassium 4.3 05/19/2024 Relevant Problems CARDIO (+) Essential hypertension GI (+) GERD (gastroesophageal reflux disease) I - PHYSICAL EVALUATION AIRWAY Patient intubated: No. Tracheostomy tube not present Mallampati: II. TM distance: >3 FB. Neck ROM: full ROM without neurological symptoms. Mouth opening: adequate. Short neck: no. Thick neck: no Javier present: yes DENTAL Dental findings: teeth intact. Additional exam findings: no II - ANESTHESIA PLAN ASA Score: 2 Anesthetic Plan: MAC The patient is not a current smoker. NPO Status: adequate Beta Jayla Monitoring Plan Monitoring plan: standard ASA. Post Procedure Analgesic Plan Postoperative analgesic plan: multimodal analgesia. Informed Consent Anesthetic risks, benefits, alternatives, personnel and consent discussed: yes. Patient / Responsible Republican agrees to proceed: yes Patient / Surrogate agrees to blood products: blood products not planned DNR status not reviewed with patient and/or family prior to surgery. Significant changes in the patient condition since the History and Physical, not otherwise documented in primary service progress note: no. Potential Anesthesia issues that may suggest increased risk of complications or contraindication to planned procedure: none. Vitals Value Taken Time BP 157/77 02/06/25 0829 Pulse Resp 18 02/06/25 0829 Temp 36.4 ?C (97.5 ?F) 02/06/25 0829 SpO2 95 % 02/06/25 0829 Facility-Administered Medications as of 02/06/2025 Medication Dose Route Frequency [COMPLETED] acetaminophen 1,000 mg tab(s) (TYLENOL) 1,000 mg ORAL Pre-Op Once [COMPLETED] promethazine 12.5 mg tab(s) (PHENERGAN) 12.5 mg ORAL Pre-Op Once lactated ringers iv infusion 30 mL/hr INTRAVENOUS CONTINUOUS lidocaine (PF) 10 mg/mL (1 %) 1-2 mg injection (XYLOCAINE) 0.1-0.2 mL INTRADERMAL PRN lactated ringers iv infusion 5-30 mL/hr INTRAVENOUS CONTINUOUS NaCl 0.9% iv flush bag 20 mL INTRAVENOUS PRN Outpatient Medications as of 02/06/2025 Medication Sig traZODone (DESYREL) 100 mg tablet Take 1 tablet by mouth daily at bedtime. gabapentin (NEURONTIN) 600 mg tablet Take 1.5 tablets at 5PM, 1 tablet at 8PM, and 1 tablet at 11PM MULTIVITAMIN ORAL Take 1 tablet by mouth once daily. cyanocobalamin (VITAMIN B-12) 500 mcg tablet Take 1 tablet by mouth once daily. cetirizine HCl/pseudoephedrine (ZYRTEC-D ORAL) Take 20 mg by mouth once daily. AM losartan (COZAAR) 100 mg tablet Take 100 mg by mouth once daily. JAJIQ-NZYCB-2-DHA-EPA- LIPIDS ORAL Take 500 mg by mouth once daily. vitamin D3-folic acid 2,500 unit- 1 mg tab Take 2,000 Units by mouth once daily. famotidine(PEPCID AC 10 MG TAB) Take one(1) tablet daily. aspirin(HALFPRIN 81 MG TAB) Take one(1) tablet daily. I have interviewed and examined the patient. I have reviewed the medical record and/or the pre-anesthesia evaluation, pertinent labs, and test results. This contains updated information obtained within 48 hours of Surgery/Procedure. SIGNATURE: Сергей Dawkins MD PATIENT NAME: Maximino Gilmore DATE: February 06, 2025 TIME: 8:40 AM CSN: [id number] [facility] BRIEF OP NOTon 02-06-2025 BRIEF OP NOT HNO ID: [id number] Author: ENRIQUE WORTHY, ? Service: Podiatry Author Type: Physician Type: Brief Op Note Filed: 02/06/2025 10:38 Note Text: BRIEF OPERATIVE / PROCEDURE NOTE LOG ID: [id number] SURGERY/PROCEDURE DATE: 02/06/2025 INCISION/PROCEDURE START TIME: 10:27 AM INCISION CLOSE/PROCEDURE END TIME: 10:30 AM SURGEON(S)/PROCEDURALI ST(S) AND AUTHORS MOTIVATIONAL(S): Surgeons and Role: * Enrique Worthy - Primary No Additional Staff SURGERY/PROCEDURE(S): xray guided injection, left tarsal metatarsal joint ANESTHESIA: Monitored Anesthesia Care FINDINGS: severe arthritis of left 2nd tarsal metatarsal joint. Successful injection of left 2nd tarsal metatarsal joint ESTIMATED BLOOD LOSS: 0 ml SPECIMENS: None COMPLICATIONS: None CLOSURE TECHNIQUE: Primary PRE-OP/PRE-PROCEDURE DIAGNOSIS: arthritis of midfoot POST-OP/POST-PROCEDURE DIAGNOSIS: Same as Preop Patient was accompanied to the next level of care by a licensed practitioner from the surgical team pending completion of this brief op note (or operative note) SIGNATURE: Enrique Worthy DPM PATIENT NAME: Maximino Gilmore DATE: February 06, 2025 TIME: 10:38 AM [facility] HISTORY PHYSICALon HISTORY PHYSICAL HNO ID: [id number] Author: ENRIQUE WORTHY ? Service: Podiatry Author Type: Physician Type: H&P Filed: 02/06/2025 10:07 Note Text: UPDATED HISTORY AND PHYSICAL EXAMINATION SERVICE DATE: 02/06/2025 SERVICE TIME: 10:06 PHYSICAL EXAM MUST BE COMPLETED ON ADMISSION The History and Physical (completed in the past 30 days) has been reviewed and the patient has been examined. The contents accurately reflect the patient's condition with the following additions or revisions since the HANDP was completed. Examination indicates no changes. This HANDP can be found in the Electronic Medical Record dated 02/01/25. Cardiac: regular rate and rhythm Pulmonary: clear. No wheezing Plan for xray guided injection of left tarsal metatarsal joint SIGNATURE: Enrique Worthy DPM PATIENT NAME: Maximino Gilmore DATE: February 06, 2025 TIME: 10:06 AM [facility] OPERATIVE NOon 02-06-2025 OPERATIVE NO HNO ID: [id number] Author: ENRIQUE WORTHY, Yadira Service: Podiatry Author Type: Physician Type: Operative Report Filed: 02/07/2025 12:36 Note Text: OPERATIVE/PROCEDURE REPORT LOG ID: [id number] SURGERY/PROCEDURE DATE: 02/06/2025 INCISION/PROCEDURE START TIME: 10:27 AM INCISION CLOSE/PROCEDURE END TIME: 10:30 AM SURGEON(S)/PROCEDURALI ST(S) AND AUTHORS MOTIVATIONAL(S): Surgeons and Role: * Genesisisis Enrique - Primary No Additional Staff SURGERY/PROCEDURE(S): Xray guided injection of right 2nd tarsal metatarsal joint ANESTHESIA: Monitored Anesthesia Care SURGERY/PROCEDURE DETAILS: patient is a pleasant 64 year old male who complains of pain to the right foot. Majority of his pain is located to the right midfoot along the tarsal metatarsal joint. He does have pain to the navicular cuneiform joint but the pain in this region is tolerable. He has tried over the counter pain relievers as well as more supportive shoes and inserts but continues to have pain. Most recent xrays show progressive worsening of arthritis of right tarsal metatarsal joint. We discussed performing a steroid injection to the right midfoot. A steroid injection may help to relieve pain and also help to identify if this joint is truly the source of his pain. Due to the difficulty of obtaining injection to this joint, we suggested performing under xray guide. I discussed risks of the procedure not limited to infection, pain, swelling, bleeding, worsening of pain, failure to eliminate pain. This patient has consented to proceed with xray guided injection of right 2nd tarsal metatarsal joint. Patient was transferred to the operating room and placed on the operating room table in the supine position. He was identfied by name and procedure. He was placed under sedation. Time out was performed making note of the procedure. Attention was then directed to the right foot. The 2nd tarsal metatarsal joint was identified by using xray. An injection was then administered to the right 2nd tarsal metatarsal joint using 0.5 cc of dexamethasone, 0.5 cc of kenalog and 0.5 cc of marcaine plain. Patient tolerated the injection nicely. Band aide was then applied. Patient was then awakened and found to be in stable condition. PRE-OP/PRE-PROCEDURE DIAGNOSIS: arthritis of midfoot POST-OP/POST-PROCEDURE DIAGNOSIS: Same as Preop ESTIMATED BLOOD LOSS: 0 ml SPECIMENS: None IMPLANTABLE DEVICES: NONE DRAINS: None COMPLICATIONS: None CLOSURE TECHNIQUE: Non-primary PARTICIPATION IN SURGERY/PROCEDURE: No qualified resident/fellow was available. SIGNATURE: Enrique Worthy DPM PATIENT NAME: Maximino Gilmore DATE: February 07, 2025 TIME: 12:26 PM re Normal [facility] HISTORY PHYSICALon HISTORY PHYSICAL HNO ID: [id number] Author: KASSIE AVILA PA-C Service: ? Author Type: Physician [employer] Super[employer] Type: H&P Filed: 02/01/2025 09:49 Note Text: HISTORY AND PHYSICAL EXAMINATION SERVICE DATE: 02/01/2025 SERVICE TIME: 9:46 AM PRIMARY CARE PHYSICIAN: Kimani Gentile MD, MD REASON FOR VISIT: Maximino Gilmore is a 64 year old male who is scheduled for Procedure(s): INJECT ANKLE (Left) at the request of Dr. Enrique Worthy for consultation. My final recommendation will be communicated back to the requesting physician by way of shared medical record or letter. Subjective The patient has the following: ACTIVE PROBLEM LIST Seborrheic Dermatitis, Unspecified Unspecified Pruritic Disorder FOLLICULITIS///HAIR DISEASES NEC Pyoderma, Unspecified Disturbance of Skin Sensation Essential Hypertension Rls (Restless Legs Syndrome) Chronic Insomnia Gerd (Gastroesophageal Reflux Disease) Obesity COVID-19 Immunization Status Current Care Gaps Covid-19 Vaccine ( season) Overdue since 06/19/2024 10/14/2021 Imm Admin: COVID-19 original vaccine, full dose, monovalent (MODERNA) 02/01/2021 Imm Admin: COVID-19 original vaccine, full dose, monovalent (MODERNA) 01/04/2021 Imm Admin: COVID-19 original vaccine, full dose, monovalent (MODERNA) Only the first 3 history entries have been loaded, but more history exists. CHIEF COMPLAINT: pre op HPI: Maximino Gilmore is a 64 year old male presenting for pre-anesthesia consultation. Pt has history of arthritis of the left ankle. Above procedure recommended to manage symptoms. Procedure scheduled on 02/06/2025 at [facility]. REVIEW OF SYSTEMS: General: No weight loss, malaise or fevers. Neurological: Negative for: headaches, peripheral neuropathy, seizures, TIA and strokes. Respiratory: Negative for: asthma, COPD, current cough, dyspnea, home oxygen, tobacco use, URI < 2 weeks and obstructive sleep apnea. Cardiovascular: Denies dizziness or syncope. Positive for: hypertension Negative for: AICD/PPM, arrhythmia, CAD, chest pain, CHF, DVT/PE, recent WI, murmur/valvular heart disease, open heart surgery and valve surgery. GI: Positive for: GERD Negative for: abdominal pain, GI bleed <30 days, hepatitis, liver disease, nausea and vomiting. : Denies kidney disease Negative for: dysuria, frequent urination, hematuria and urinary tract infection. Endocrine: Negative for: diabetes mellitus, hyperthyroidism and hypothyroidism. Hematology: Negative for: anemia, bruises/bleeds easily, factor V Leiden, hemophilia, thrombocytopenia and von Willebrand disease. Oncology: No history of CA metastasis, chemo within 30 days, or radiotherapy within 90 days. No history of oncological symptoms or problems. Psych: Negative for: anxiety, bipolar disorder and depression. Musculoskeletal: See HPI. Skin: Negative for lesions, rash and itching. Implanted Devices: No implanted devices. PAST MEDICAL HISTORY Diagnosis Date Essential hypertension, benign PAST SURGICAL HISTORY Procedure Laterality Date PAST SURGICAL HISTORY OF carpal tunnel both wrist PAST SURGICAL HISTORY OF partial amputation right thumb PAST SURGICAL HISTORY OF tubes left ear as child TONSILLECTOMY AND ADENOIDECTOMY FAMILY HISTORY Problem Relation Age of Onset Arthritis Mother Hypertension Mother Arthritis Father Cancer Father prostate Heart Father Hypertension Father Diabetes Father Type II Arthritis Maternal Grandmother Hypertension Maternal Grandmother Arthritis Maternal Grandfather Heart Maternal Grandfather Hypertension Maternal Grandfather Arthritis Paternal Grandmother Heart Paternal Grandmother Hypertension Paternal Grandmother Alzheimer's Disease Paternal Grandfather Arthritis Paternal Grandfather Cancer Paternal Grandfather prostate Hypertension Paternal Grandfather Anesthesia Problems No Family History Social History Tobacco Use Smoking status: Former Current packs/day: 1.00 Types: Cigarettes Smokeless tobacco: Never Tobacco comments: one pack per day - quit 25 years ago Vaping Use Vaping status: Never Used Substance Use Topics Alcohol use: Yes Comment: rare Drug use: Not Currently Types: Marijuana Prior to Admission medications as of 02/01/25 0919 Medication Sig Last Dose Taking traZODone (DESYREL) 100 mg tablet Take 1 tablet by mouth daily at bedtime. Yes gabapentin (NEURONTIN) 600 mg tablet Take 1.5 tablets at 5PM, 1 tablet at 8PM, and 1 tablet at 11PM Yes MULTIVITAMIN ORAL Take 1 tablet by mouth once daily. Yes cyanocobalamin (VITAMIN B-12) 500 mcg tablet Take 1 tablet by mouth once daily. Yes cetirizine HCl/pseudoephedrine (ZYRTEC-D ORAL) Take 20 mg by mouth once daily. AM Yes losartan (COZAAR) 100 mg tablet Take 100 mg by mouth once daily. Yes GXYOF-VSQNP-0-DHA-EPA- LIPIDS ORAL Take 500 mg by mouth once daily. Yes vitamin D3-folic acid 2,500 unit- 1 mg tab Take 2,0 (more content not included)... Normal [facility] CNOVon 01-27-2025 CNOV Office Visit (PODIWS ) MAXIMINO GILMORE ([id number]) 1960 M Date Time Provider Department 01/27/25 9:30 AM ENRIQUE WORTHYIWS During your visit today, we recorded the following information about you: Suzette Johnson MA 01/27/2025 10:13 AM Signed AMB ROOMING INTAKE FLOWSHEET DATA Pain Pain Level: 8 Pain Location: Foot-Left Description: Aching, Contraction, Cutting, Pressure, Sharp, Spasm, Stiffness, Tightness Duration Amount of Time: 9 Duration Units: Months Frequency: Continuous Intervention/Comfort measure: Relaxation, Medication, Heat Comments: All day long but worse if really active and worse in the evenings. Patient presents with: Left Foot - Established Patient, Pain, Infection Ongoing left plantar midfoot pain x 6 months, worse over the past couple months. Pain now constant and worse at night. To the point ready to discuss injections, previously seen in office on 06/28/24 for some complaint. Does not let pain limit him, tries to push through it. Does keep him up at night at times. Pain rated an 8/10 today. Pt has tried heat, relaxation, Gabapentin and Ibuprofen to help reduce pain. Suzette Johnson MA Enrique Worthy 01/27/2025 10:13 AM Signed Subjective Maximino is a 64-year-old male presenting for evaluation of left foot pain. 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 - Onset a few months before Maximino's initial visit; significantly worsened over the past two months. - Most severe pain is on the plantar and dorsal aspect of the midfoot. - Using supportive footwear, including Monique and Skechers with PowerStep inserts. - Taking gabapentin; avoids ibuprofen due to medication interactions. - Considering a steroid injection for pain relief. - Denies pain in the right foot. Musculoskeletal: (+) left foot pain PAST MEDICAL HISTORY Diagnosis Date Essential hypertension, benign ALLERGIES Allergen Reactions Naproxen Other: See Comments Family History Problem Relation Age of Onset Alzheimer's Disease Paternal Grandfather Arthritis Mother Arthritis Father Arthritis Maternal Grandmother Arthritis Maternal Grandfather Arthritis Paternal Grandmother Arthritis Paternal Grandfather Cancer Father prostate Cancer Paternal Grandfather prostate Heart Father Heart Paternal Grandmother Heart Maternal Grandfather Hypertension Mother Hypertension Father Hypertension Maternal Grandmother Hypertension Maternal Grandfather Hypertension Paternal Grandmother Hypertension Paternal Grandfather Diabetes Father Type II Objective There were no vitals taken for this visit. - Cardiovascular: Dorsalis pedis and posterior tibial pulses palpable bilaterally; capillary refill brisk. - Skin: No open sores or calluses noted; skin well-hydrated, normal color, normal temperature; hair growth present bilaterally. - Musculoskeletal: - Left Foot: - Pain to palpation of midfoot along second and third tarsometatarsal joints, plantar midfoot, and navicular cuneiform joint. - No pain to palpation of medial or lateral heel, subtalar joint. - Pain with ROM of midtarsal joint. - Right Foot: - No pain to palpation of midfoot. - No pain with ROM of midtarsal joint. - Neurological: Protective sensation intact bilaterally. Labs: Tests: Imaging: (05/19/2024) Bilateral Foot X-rays: - Left foot: Narrowed second and third tarsometatarsal joints with marked arthritic changes; navicular cuneiform joint also shows arthritic narrowing. - Right foot: Less pronounced arthritic changes compared to left. 1. Arthritis of left midfoot (M19.072) 2. Pain in left foot (M79.672) - Examination reveals pain to palpation of the left midfoot along the second and third tarsometatarsal joints and the navicular cuneiform joint. No pain to palpation of the left medial or lateral heel or subtalar joint. Pain present across the left midfoot with range of motion of the midtarsal joint. - X-rays from May 19, 2024, show narrowing of the tarsometatarsal joint on the left foot, with arthritis more severe on the left compared to the right. Arthritis also present in the navicular cuneiform joint. - Ordered repeat bilateral foot x-rays to assess progression of arthritis. - Continue wearing supportive footwear such as Monique, HOKAs, ASICS and use PowerStep inserts. - Advised use of extra strength Tylenol for pain management. - Scheduled x-ray guided corticosteroid injection of the left tarsometatarsal joint under sedation in the operating room to provide therapeutic and diagnostic relief. - Discussed risks of the procedure, including infection, bleeding, and potential failure to alleviate pain. - Patient understands and agrees with the treatment plan. Attestation The patient consented to the use of [employer] software for draft (more content not included)... Normal [facility] XR FOOT 3V AP/LAT/OBL BILon 01-27-2025 XR FOOT 3V AP/LAT/OBL SATNAM * * *Final Report* * * DATE OF EXAM: Jan 27 2025 10:26AM [id number] [id number] - XR FOOT 3V AP/LAT/OBL SATNAM / PROCEDURE REASON: Arthritis of left midfoot * * * * Physician Interpretation * * * * EXAMINATION: XR FOOT 3V AP/LAT/OBL SATNAM HISTORY: card in left only hx of arthritis with swelling and pain across dorsal side of left foot no inj Arthritis of left midfoot . 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 ciprofloxacin HCl 500 mg tablet 500 mg PO BID #10 tabs 03/06/23 Unknown Rx (Cipro) gabapentin 300 mg capsule 900 mg PO 2030,2300 RESTLESS LEGS 03/06/23 Unknown History Allergy/AdvReac Type Severity Reaction Status Date / Time naproxen (From Naprosyn) AdvReac Chest Verified 08/17/24 14:51 tightness Surgical History Hx of colonoscopy Hx of myringotomy History of surgery on wrist History of carpal tunnel surgery of right wrist History of carpal tunnel surgery of left wrist Hx of amputation Social History Smoking Status: Former smoker ROS ROS ED Constitutional Constitutional ED: Denies chills or fever(s) Cardiovascular Cardiovascular: Reports as per HPI and chest pain; Denies palpitations or racing heartbeat Respiratory/Chest Respiratory/Chest: Denies cough, dyspnea or dyspnea on exertion Gastrointestinal Gastrointestinal: Denies abdominal pain, nausea or vomiting Musculoskeletal Musculoskeletal: Reports other Details: Left arm pain Integumentary Denies rash Neurologic Neurologic: Denies paresthesias or weakness Hematologic/Lymphatic Hematologic/Lymphatic: Denies easy bleeding or easy bruising EXAM Physical Exam Const Vital Signs: 08/17/24 14:51 08/17/24 15:51 08/17/24 16:28 Temperature 97.1 F L Temperature Source Temporal Pulse Rate 70 65 Respiratory Rate 18 19 H Blood Pressure 142/74 H 142/88 H Blood Pressure Mean 96 106 Pulse Ox 94 96 97 Oxygen Delivery Method Room Air Room Air Room Air 08/17/24 16:28 08/17/24 16:58 08/17/24 17:59 Temperature Temperature Source Pulse Rate 87 63 62 Respiratory Rate 18 17 17 Blood Pressure 131/78 H 129/65 H 136/65 H Blood Pressure Mean 95 86 88 Pulse Ox 98 Oxygen Delivery Method Room Air 08/17/24 19:00 Temperature Temperature Source Pulse Rate 68 Respiratory Rate 19 H Blood Pressure 138/77 H Blood Pressure Mean 97 Pulse Ox Oxygen Delivery Method Positive well nourished and well developed General Appearance ED: well developed and NAD HEENT Reports moist mucous membranes Eyes PERRL Neck supple and no JVD Chest Wall inspection of chest normal and palpation of chest normal Chest Narrative: No reproducible chest pain with palpation Resp normal respiratory effort and (more content not included)... Normal [facility] L501.4020on 08-17-2024 TROPONIN-I HS < 3 Low 3.0-78.0 [facility] Comment on above: Result Comment: Plea se Note: New Test Units and Gender Specific Reference Ranges. For more information see Policy Stat Procedure [place] High Sensitivity Troponin (TNIH) and attachments. Performed By: #### M 100.2200 #### [facility] [address] [place], [address] L501.5425on 08-17-2024 TROPONIN-I HS < 3 Low 3.0-78.0 [facility] Comment on above: Order Comment: 1 Y Result Comment: Plea se Note: New Test Units and Gender Specific Reference Ranges. For more information see Policy Stat Procedure [place] High Sensitivity Troponin (TNIH) and attachments. Performed By: #### L 500.2500, L100.0100, L501.5425 #### [facility] [address] [place], [address] L3300.0940on 08-06-2024 VIT D,25 HYDROX Normal [facility] Comment on above: Result Comment: TEST RESULTS LIMITS Vitamin D, 25-Hydroxy 47.3 ng/mL 30.0-100.0 Vitamin D deficiency has been defined by the [place] [employer] and an Endocrine Society practice guideline as a level of serum 25-OH vitamin D less than 20 ng/mL (1,2). The Endocrine Society went on to further define vitamin D insufficiency as a level between 21 and 29 ng/mL (2). 1. IOM ([place] [employer]). 2010. Dietary reference intakes for calcium and D. [place]: The National Academies Press. 2. Ben MF, Catherine LINDSEY, Raymundo BOBBY, et al. Evaluation, treatment, and prevention of vitamin D deficiency: an Endocrine Society clinical practice guideline. JCEM. 2010; 96(7):1911-30. TESTING PERFORMED AT [facility]. ORIGINAL REPORT ON FILE IN LAB CONTAINS ADDITIONAL TEST SITE INFORMATION. Performed By: #### M 100.2200 #### [facility] [address] [place], [address] PTHINon 08-05-2024 PTH 63.9 pg/mL Normal 18.4-80.1 [facility] Comment on above: Order Comment: MICHELLE Morales ADD PTHIN TO BLOOD DRAWN 08/03/24 PER Performed By: #### M 100.2200 #### [facility] [address] [place], [address] CBC W/Diff, Automatedon 10- Absolute Lymph 1.57 X10 3/uL Normal 0.83-4.51 [facility] Comment on above: Performed By: #### L 509.1000, L100.0100, L400.0001, L501.9985, L3300.0940, L500.4100, L500.4050 #### [facility] [address] [place], [address] Absolute Neut 5.2 X10 3/uL Normal 2.0-7.7 [facility] Comment on above: Performed By: #### L 509.1000, L100.0100, L400.0001, L501.9985, L3300.0940, L500.4100, L500.4050 #### [facility] [address] [place], [address] Basophils/100 WBC (Bld) 1.0 % Normal 0-1 [facility] Comment on above: Performed By: #### L 509.1000, L100.0100, L400.0001, L501.9985, L3300.0940, L500.4100, L500.4050 #### [facility] [address] [place], [address] Eosinophils/100 WBC (Bld) 6.9 % High 0-5 [facility] Comment on above: Performed By: #### L 509.1000, L100.0100, L400.0001, L501.9985, L3300.0940, L500.4100, L500.4050 #### [facility] [address] [place], [address] Erythrocyte distribution width (RBC) [Ratio] 13.4 % Normal 11.6-14.6 [facility] Comment on above: Performed By: #### L 509.1000, L100.0100, L400.0001, L501.9985, L3300.0940, L500.4100, L500.4050 #### [facility] [address] [place], [address] Hematocrit (Bld) [Volume fraction] 44.5 % Normal 40-54 [facility] Comment on above: Performed By: #### L 509.1000, L100.0100, L400.0001, L501.9985, L3300.0940, L500.4100, L500.4050 #### [facility] [address] [place], [address] Hemoglobin (Bld) [Mass/Vol] 14.2 g/dL Normal 13.0-16.5 [facility] Comment on above: Performed By: #### L 509.1000, L100.0100, L400.0001, L501.9985, L3300.0940, L500.4100, L500.4050 #### [facility] [address] [place], [address] IG% 0.600 Normal 0.0-0.9 [facility] Comment on above: Result Comment: IG% - Immature Granulocytes (promyelocytes, myelocytes and metamyelocytes) > 1% indicates that a LEFT SHIFT is Present. Performed By: #### L 509.1000, L100.0100, L400.0001, L501.9985, L3300.0940, L500.4100, L500.4050 #### [facility] [address] [place], [address] Lymphocytes/100 WBC (Bld) 18.7 % Low 19-41 [facility] Comment on above: Performed By: #### L 509.1000, L100.0100, L400.0001, L501.9985, L3300.0940, L500.4100, L500.4050 #### [facility] [address] [place], [address] MCH (RBC) [Entitic mass] 30.3 pg Normal 27.0-32.0 [facility] Comment on above: Performed By: #### L 509.1000, L100.0100, L400.0001, L501.9985, L3300.0940, L500.4100, L500.4050 #### [facility] [address] [place], [address] MCHC (RBC) [Mass/Vol] 31.9 g/dL Low 32-36 [facility] Comment on above: Performed By: #### L 509.1000, L100.0100, L400.0001, L501.9985, L3300.0940, L500.4100, L500.4050 #### [facility] [address] [place], [address] MCV (RBC) [Entitic vol] 95.1 fL High 80-94 [facility] Comment on above: Performed By: #### L 509.1000, L100.0100, L400.0001, L501.9985, L3300.0940, L500.4100, L500.4050 #### [facility] [address] [place], [address] Monocytes/100 WBC (Bld) 10.6 % High 0-10 [facility] Comment on above: Performed By: #### L 509.1000, L100.0100, L400.0001, L501.9985, L3300.0940, L500.4100, L500.4050 #### [facility] [address] [place], [address] Neutrophils/100 WBC (Bld) 62.2 % Normal 47-70 [facility] Comment on above: Performed By: #### L 509.1000, L100.0100, L400.0001, L501.9985, L3300.0940, L500.4100, L500.4050 #### [facility] [address] [place], [address] Nucleated RBC (Bld) [#/Vol] 0 10*3/uL Normal 0-5 [facility] Comment on above: Performed By: #### L 509.1000, L100.0100, L400.0001, L501.9985, L3300.0940, L500.4100, L500.4050 #### [facility] [address] [place], [address] Platelet mean volume (Bld) [Entitic vol] 9.4 fL Normal 6.2-12.0 [facility] Comment on above: Performed By: #### L 509.1000, L100.0100, L400.0001, L501.9985, L3300.0940, L500.4100, L500.4050 #### [facility] [address] [place], [address] Platelets (Bld) [#/Vol] 298 10*3/uL Normal 150-450 [facility] Comment on above: Performed By: #### L 509.1000, L100.0100, L400.0001, L501.9985, L3300.0940, L500.4100, L500.4050 #### [facility] [address] [place], [address] RBC (Bld) [#/Vol] 4.68 10*6/uL Normal 4.6-6.2 [facility] Comment on above: Performed By: #### L 509.1000, L100.0100, L400.0001, L501.9985, L3300.0940, L500.4100, L500.4050 #### [facility] [address] [place], [address] RDW SD 47.0 fl High 35.1-43.9 [facility] Comment on above: Performed By: #### L 509.1000, L100.0100, L400.0001, L501.9985, L3300.0940, L500.4100, L500.4050 #### [facility] [address] [place], [address] WBC (Bld) [#/Vol] 8.4 10*3/uL Normal 4.4-11.0 [facility] Comment on above: Performed By: #### L 509.1000, L100.0100, L400.0001, L501.9985, L3300.0940, L500.4100, L500.4050 #### [facility] [address] [place], [address] Comprehensive [facility] 08-03-2024 Albumin [Mass/Vol] 3.9 g/dL Normal 3.2-5.0 [facility] Comment on above: Performed By: #### M 100.2200 #### [facility] [address] [place], [address] Albumin/Globulin [Mass ratio] 1.3 {ratio} Normal 0.9-2.4 [facility] Comment on above: Performed By: #### M 100.2200 #### [facility] [address] [place], [address] ALK P 106 U/L Normal 45-117 [facility] Comment on above: Performed By: #### M 100.2200 #### [facility] [address] [place], [address] ALT [Catalytic activity/Vol] 29 U/L Normal 16-61 [facility] Comment on above: Performed By: #### M 100.2200 #### [facility] [address] [place], [address] AST [Catalytic activity/Vol] 18 U/L Normal 15-37 [facility] Comment on above: Performed By: #### M 100.0 #### [facility] [address] [place], [address] Bilirubin [Mass/Vol] 0.40 mg/dL Normal 0.20-1.00 [facility] Comment on above: Result Comment: For patients on eltrombopag therapy, use of Dimension [place] TBIL is not recommended. Performed By: #### M 100.2199 #### [facility] [address] [place], [address] BUN/CRE 20.7 RATIO High 10-20 [facility] Comment on above: Performed By: #### M 100.2200 #### [facility] [address] [place], [address] CA,Total 10.3 mg/dL High 8.5-10.1 [facility] Comment on above: Performed By: #### M 100.2200 #### [facility] [address] [place], [address] Chloride [Moles/Vol] 103 mmol/L Normal 98-107 [facility] Comment on above: Performed By: #### M 100.2200 #### [facility] [address] [place], [address] CO2 [Moles/Vol] 28.0 mmol/L Normal 21.0-32.0 [facility] Comment on above: Performed By: #### M 100.2200 #### [facility] [address] [place], [address] Creatinine [Mass/Vol] 0.92 mg/dL Normal 0.70-1.30 [facility] Comment on above: Result Comment: The validity of the calculated GFR GFRAA in patients over 70 years has not been determined. Clinical correlation is essential. Performed By: #### M 100.2200 #### [facility] [address] [place], [address] EST GFR - AA 107 mL/min Normal >60 [facility] Comment on above: Result Comment: Afri can [place] GFR Calc Performed By: #### M 100.2200 #### [facility] [address] [place], [address] GAP 5 Normal 5-15 [facility] Comment on above: Performed By: #### M 100.2200 #### [facility] [address] [place], [address] GFR/1.73 sq M.predicted among non-blacks MDRD (S/P/Bld) [Vol rate/Area] 89 mL/min/{1.73_m2} Normal >60 [facility] Comment on above: Result Comment: Non- GFR Calc Performed By: #### M 100.2200 #### [facility] [address] [place], [address] Globulin (S) [Mass/Vol] 3.1 g/dL Normal 2.2-4.2 [facility] Comment on above: Performed By: #### M 100.2200 #### [facility] [address] [place], [address] Glucose [Mass/Vol] 111 mg/dL High 74-106 [facility] Comment on above: Result Comment: Fast ing Glucose result from 100 to 125 mg/dL suggests IMPAIRED HOMEOSTASIS per A.D.A. criteria. Performed By: #### M 100.2200 #### [facility] [address] [place], [address] Potassium [Moles/Vol] 4.3 mmol/L Normal 3.5-5.1 [facility] Comment on above: Performed By: #### M 100.2200 #### [facility] [address] [place], [address] Sodium [Moles/Vol] 136 mmol/L Normal 136-145 [facility] Comment on above: Performed By: #### M 100.2200 #### [facility] [address] [place], [address] T PROT 7.0 g/dL Normal 6.4-8.2 [facility] Comment on above: Performed By: #### M 100.2200 #### [facility] [address] [place], [address] Urea nitrogen [Mass/Vol] 19 mg/dL High 7-18 [facility] Comment on above: Performed By: #### M 100.2200 #### [facility] [address] [place], [address] Hemoglobin A1con 08-03-2024 HbA1c (Bld) [Mass fraction] 5.6 % Normal 3.8-5.6 [facility] Comment on above: Result Comment: Norm al < 5.7 % Prediabetic 5.7 - 6.4 % Diabetic >or= 6.5 % Please note range changes. Performed By: #### M 100.2200 #### [facility] [address] [place], [address] Lipid Profileon 08-03-2024 Cholesterol [Mass/Vol] 206 mg/dL High 200 [facility] Comment on above: Result Comment: <200 mg/dL Desirable 200-240 mg/dL Borderline >240 mg/dL High Risk Performed By: #### M 100.2200 #### [facility] [address] [place], [address] Cholesterol in HDL [Mass/Vol] 46 mg/dL Normal [facility] Comment on above: Result Comment: The drugs N-Acetylcysteine and Metamizole may falsely depress this assay. Reference Range HDL <40 mg/dL Low HDL Cholesterol HDL >or= 60 mg/dL High HDL Cholesterol Performed By: #### M 100.2200 #### [facility] [address] [place], [address] Cholesterol in LDL [Mass/Vol] 142 mg/dL High 0-130 [facility] Comment on above: Performed By: #### M 100.2200 #### [facility] [address] [place], [address] Cholesterol in VLDL [Mass/Vol] 18 mg/dL Normal 5-40 [facility] Comment on above: Performed By: #### M 100.2200 #### [facility] [address] [place], [address] Triglyceride [Mass/Vol] 90 mg/dL Normal [facility] Comment on above: Result Comment: The drugs N-Acetylcysteine and Metamizole may falsely depress this assay. Serum Triglycerides Reference Interval Normal <150 mg/dL Borderline high 150 - 199 mg/dL High 200 - 499 mg/dL Very High > or = 500 mg/dL Performed By: #### M 100.2200 #### [facility] [address] [place], [address] Urinalysis, Completeon 08-03 BACTERIA 0 SEEN Normal None Seen [facility] Comment on above: Order Comment: CLEAN CATCH Performed By: #### L 509.1000, L100.0100, L400.0001, L501.9985, L3300.0940, L500.4100, L500.4050 #### [facility] [address] [place], [address] EPI,SQUAMOUS 0 SEEN Normal 0-5 [facility] Comment on above: Order Comment: CLEAN CATCH Performed By: #### L 509.1000, L100.0100, L400.0001, L501.9985, L3300.0940, L500.4100, L500.4050 #### [facility] [address] [place], [address] Mucus Ql (Urine sed) 0 SEEN Normal [facility] Comment on above: Order Comment: CLEAN CATCH Performed By: #### L 509.1000, L100.0100, L400.0001, L501.9985, L3300.0940, L500.4100, L500.4050 #### [facility] [address] [place], [address] RBC 0 SEEN Normal 0-5 [facility] Comment on above: Order Comment: CLEAN CATCH Performed By: #### L 509.1000, L100.0100, L400.0001, L501.9985, L3300.0940, L500.4100, L500.4050 #### [facility] [address] [place], [address] WBC 0 SEEN Normal 0-5 [facility] Comment on above: Order Comment: CLEAN CATCH Performed By: #### L 509.1000, L100.0100, L400.0001, L501.9985, L3300.0940, L500.4100, L500.4050 #### [facility] [address] [place], [address] CNOVon 07-08-2024 CNOV Office Visit (ALEX ) MAXIMINO GILMORE ([id number]) 1960 M Date Time Provider Department 07/08/24 2:00 PM KENDELL GAMBINO JR During your visit today, we recorded the following information about you: Pulse Blood pressure Weight 70/minute 128/78 104.9 kg Kendell Gambino Jr., MD 07/08/2024 2:26 PM Signed ESTABLISHED PATIENT VISIT CHIEF COMPLAINT: Follow Up HISTORY OF PRESENT ILLNESS: Maximino Gilmore is a 64 year old male, with a PMH significant for and per last visit of 12/14/23: 1. RLS (restless legs syndrome) - ICD9: 333.94, ICD10: G25.81 (primary diagnosis) For RLS symptoms occurring earlier, will attempt to adjust timing and dosing of Gabapentin with pt now taking 600mg at 5PM and 8PM (to prevent symptoms of RLS building up prior to any treatment) and 900mg at 11PM (just prior to bedtime). SE and ADRs reviewed with pt. 2. Insomnia, unspecified type - ICD9: 780.52, ICD10: G47.00 Besides RLS, also with racing thoughts at night. Will consider CBTi in future but for now will place on trial of Trazodone 50mg QHS to see if allows patient to fall asleep quicker and sleep longer. SE and ADRs reviewed with pt. 3. Snoring - ICD9: 786.09, ICD10: R06.83 Once sleeping better (with above treatments) patient should undergo HSAT to evaluate for possible underlying MATTIE. Will reevaluate at time of next visit. 1Discussed with patient: the physiology of OSAS, medical conditions associated with OSAS (DM, HTN, CAD, Depression, Stroke, Headache...) and treatment options (UPPP, Dental appliances, CPAP...). Patient reports doing good on the sleep now. States after taking 8PM pills, legs will start bothering him around 9PM again but then takes pills at MN (pills referring to gabapentin) and Trazodone at 11PM, no issues falling asleep. Pt thinks due to working outside late into the night -- this schedule should change. States Trazodone is definitely doing its job. Averaging about 6-8 hours of sleep. Feels a bit dizzy in the AM, but not groggy. Pt currently is not endorsing s/s of MATTIE. Pt has lost 12 pounds during the interim. REVIEW OF SYSTEMS GENERAL:No weight loss, malaise or fevers. HEENT:Negative for frequent or significant headaches, No changes in hearing or vision, no nose bleeds or other nasal problems RESPIRATORY: Negative for cough, wheezing or shortness of breath. CARDIOVASCULAR: Negative for chest pain, leg swelling or palpitations. GASTROINTESTINAL: Negative for abdominal discomfort, blood in stools or black stools or change in bowel habits GENITOURINARY: No history of dysuria, frequency or incontinence MUSCULOSKELETAL: Negative for joint pain or swelling, back pain or muscle pain. NEUROLOGIC:Negative for focal numbness or weakness, headaches and dizziness or syncope, vision changes, speech/languag changes - EXCEPT that as per HPI above. SKIN:Negative for lesions, rash, and itching. PSYCHIATRIC: Negative for mood disorder and recent psychosocial stressors. LAB/IMAGING: Those performed since patient's last visit have been reviewed. WBC (k/uL) Date Value 11/04/2023 11.44 (H) RBC (m/uL) Date Value 11/04/2023 4.82 Hemoglobin (g/dL) Date Value 11/04/2023 14.7 Hematocrit (%) Date Value 11/04/2023 46.6 MCV (fL) Date Value 11/04/2023 96.7 MCH (pg) Date Value 11/04/2023 30.5 MCHC (g/dL) Date Value 11/04/2023 31.5 RDW-CV (%) Date Value 11/04/2023 13.2 Platelet Count (k/uL) Date Value 11/04/2023 225 MPV (fL) Date Value 11/04/2023 10.0 Glucose (mg/dL) Date Value 05/19/2024 103 (H) BUN (mg/dL) Date Value 05/19/2024 19 Creatinine (mg/dL) Date Value 05/19/2024 0.92 Sodium (mmol/L) Date Value 05/19/2024 139 Potassium (mmol/L) Date Value 05/19/2024 4.3 Chloride (mmol/L) Date Value 05/19/2024 104 CO2 (mmol/L) Date Value 05/19/2024 25 Protein, Total (g/dL) Date Value 05/19/2024 6.4 Albumin (g/dL) Date Value 05/19/2024 4.3 Calcium, Total (mg/dL) Date Value 05/19/2024 10.7 (H) Alkaline Phosphatase (U/L) Date Value 05/19/2024 96 Bilirubin, Total (mg/dL) Date Value 05/19/2024 0.6 AST (U/L) Date Value 05/19/2024 21 ALT (U/L) Date Value 05/19/2024 25 URINALYSIS No results found for: PH, SPGR, UGLUC, UBILI, UKET, UHB, UPROT, UROBIL, UWBC, SSA MEDICATIONS: MULTIVITAMIN ORAL Take 1 tablet by mouth once daily. sertraline (ZOLOFT) 50 mg tablet Take 50 mg by mouth once daily. cyanocobalamin (VITAMIN B-12) 500 mcg tablet Take 1 tablet by mouth once daily. traZODone (DESYREL) 50 mg tablet Take 1 tablet by mouth daily at bedtime. cetirizine HCl/pseudoephedrine (ZYRTEC-D ORAL) Take 20 mg by mouth once daily. AM gabapentin (NEURONTIN) 600 mg tablet Take 1 tablet at 5PM, 1 tablet at 8PM, and 1.5 tabs at 11PM. (Patient taking differently: ) losartan (COZAAR) 100 mg tablet Take 100 mg by (more content not included)... Normal [facility] CNOVon 06-28-2024 CNOV Office Visit (PODIWS ) MAXIMINO GILMORE ([id number]) 1960 M Date Time Provider Department 06/28/24 2:45 PM ENRIQUE WORTHYS During your visit today, we recorded the following information about you: Cara Ansari RN 06/28/2024 3:08 PM Signed AMB ROOMING INTAKE FLOWSHEET DATA Pain Pain Level: 7 (2-04/27) Pain Location: Other: See Comment (B/L feet) Description: Sharp Duration Units: Months Frequency: Continuous Intervention/Comfort measure: Reposition, Relaxation, Medication (Power Step inserts, Mobic) Patient presents with: Left Foot - Follow Up, Pain Right Foot - Follow Up, Pain Enrique Worthy 06/28/2024 3:08 PM Signed FOLLOW UP PODIATRIC OFFICE VISIT Chief Complaint: This 64 year old who presents for follow up:b/l foot pain Patient presents to clinic for follow-up b/l foot pain Patient states the pain in right foot has improved The pain in the left foot is still present. Pain is located to the midfoot, left ankld and ball of left foot Patient states the pain is worse by evening. Pain is not as bad in the morning. Is using inserts for the pain and that does help. Patient will take ibuprofen if the pain is bad PAIN EVALUATION 06/28/2024 1436 Pain Level: 7 2-04/27 Pain Location: Other: See Comment B/L feet Description: Sharp Duration Units: Months Frequency: Continuous Intervention/Comfort measure: Reposition;Relaxation; Medication Power Step inserts, Mobic Hemoglobin A1C Date Value Ref Range Status 06/02/2022 5.3 4.3 - 5.6 % Final Comment: [place] [employer] guidelines indicate that patients with HgbA1c in the range 5.7-6.4% are at increased risk for development of diabetes, and intervention by lifestyle modification may be beneficial. HgbA1c greater or equal to 6.5% is considered diagnostic of diabetes. PCP: Kimani Gentile MD, MD PAST MEDICAL HISTORY No date: Essential hypertension, benign Current Outpatient Medications Medication Sig MULTIVITAMIN ORAL Take 1 tablet by mouth once daily. sertraline (ZOLOFT) 50 mg tablet Take 50 mg by mouth once daily. cyanocobalamin (VITAMIN B-12) 500 mcg tablet Take 1 tablet by mouth once daily. traZODone (DESYREL) 50 mg tablet Take 1 tablet by mouth daily at bedtime. cetirizine HCl/pseudoephedrine (ZYRTEC-D ORAL) Take 20 mg by mouth once daily. AM gabapentin (NEURONTIN) 600 mg tablet Take 1 tablet at 5PM, 1 tablet at 8PM, and 1.5 tabs at 11PM. (Patient taking differently: ) losartan (COZAAR) 100 mg tablet Take 100 mg by mouth once daily. HIORI-EGQXF-7-DHA-EPA- LIPIDS ORAL Take 500 mg by mouth once daily. vitamin D3-folic acid 2,500 unit- 1 mg tab Take 2,000 Units by mouth once daily. famotidine(PEPCID AC 10 MG TAB) Take one(1) tablet daily. aspirin(HALFPRIN 81 MG TAB) Take one(1) tablet daily. No current facility-administered medications for this visit. ALLERGIES Allergen Reactions Naproxen Other: See Comments PAST SURGICAL HISTORY No date: PAST SURGICAL HISTORY OF Comment: carpal tunnel both wrist No date: PAST SURGICAL HISTORY OF Comment: partial amputation right thumb No date: PAST SURGICAL HISTORY OF Comment: tubes left ear as child No date: TONSILLECTOMY AND ADENOIDECTOMY Physical Exam: OBJECTIVE: Constitutional: Pt is a well developed 64 year old male who is alert, oriented, cooperative and in no apparent distress. Eyes: Following during examination. No redness or drainage. Respiratory: RR normal and nonlabored. Even breathing. No evidence of distress. Psychology: Patient is engaged during conversation. Normal affect and mood. Does not appear depressed or anxious. NVSI unchanged from previous visit. Dermatological: Nails 1-5 b/l are normal. Webspaces clean and dry 1-4 b/l. Skin appears well hydrated and supple. good color, texture, turgor. No open lesions present. No callosities present. Musculoskeletal/Orthop aedic: Patient has pain to palpation of left 2nd tarsal metatarsal joint Mild decrease rom of left 1st mtpj Severe decrease rom of right 1st mtpj ASSESSMENT: (M19.071, M19.072) Arthritis of both midfeet (primary encounter diagnosis) PLAN: Discussed pain in left midfoot Suspect arthritis Continue with good supportive shoes and inserts. If pain were to become worse, consider xray guided injection of left midfoot Enrique Worthy DPM Referring Provider: ENRIQUE WORTHY [[id number]] Allergies As of Date: 06/28/2024 Noted Allergy Reaction NAPROXEN 01/12/2020 14 - Other: See Comments Date Reviewed: 06/28/2024 Reviewed by: Cara Ansari RN - Fully Assessed Reason for Visit: Follow Up [171] Pain [78] Follow Up [171] Pain [78] Primary Visit Diagnosis:Arthritis of both midfeet [M19.071, M19.072] Prescriptions as of 06/28/2024 - MULTIVITAMIN ORAL Take 1 tablet by mouth once daily. - sertraline (ZOLOFT) 50 mg tablet Take 50 mg by mouth once (more content not included)... Normal [facility] XR Foot - bilateral AP and L ateral and obliqueon 05-23-2024 IMPRESSION: Bilateral foot degenerative changes and suspicion of tiny erosion of the left first proximal phalanx head. Bilateral calcaneal enthesophytes Uniform Cap Operator: [facility] Transcribe Date/Time: May 23 2024 6:58P Dictated by : ANAND DACOSTA MD This examination was interpreted and the report reviewed and electronically signed by: ANAND DACOSTA MD on May 23 2024 7:02PM [facility] DIVISION OF RADIOLOGY * * *Final Report* * * DATE OF EXAM: May 19 2024 1:21PM WOX 5555 - XR FOOT 3V AP/LAT/OBL SATNAM / PROCEDURE REASON: multiple diagnoses * * * * Physician Interpretation * * * * HISTORY: Bilateral foot pain Bilateral foot pain . Bilateral foot pain that began this summer. Pt believes pain may be due to wearing flip flops all summer so far. TECHNIQUE: XR FOOT 3V AP/LAT/OBL SATNAM Laterality: BILATERAL Number of different views (projections): 3 COMPARISON: None RESULT: Right foot: No acute fracture or dislocation. Plantar calcaneal enthesophyte. Scattered midfoot degenerative changes with moderate joint space narrowing involving the second and third TMT joints and small marginal osteophytes. First MTP osteophytes and first proximal phalanx base subchondral cysts. No visualized erosion. Left foot: No acute fracture or dislocation. Plantar calcaneal and Achilles tendon enthesophytes. Scattered midfoot joint space narrowing greater and moderate to severely involving the medial cuneonavicular and second and third TMT joints, small osteophytes, and probable subchondral cysts. Suspicion of tiny erosion about the lateral aspect of the first proximal phalanx head at the first IP joint on oblique view DIVISION OF RADIOLOGY Provider, Maricarmen Rich - 05/23/2024 * * *Final Report* * * DATE OF EXAM: May 19 2024 1:21PM WOX 5555 - XR FOOT 3V AP/LAT/OBL SATNAM / PROCEDURE REASON: multiple diagnoses * * * * Physician Interpretation * * * * HISTORY: Bilateral foot pain Bilateral foot pain . Bilateral foot pain that began this summer. Pt believes pain may be due to wearing flip flops all summer so far. TECHNIQUE: XR FOOT 3V AP/LAT/OBL SATNAM Laterality: BILATERAL Number of different views (projections): 3 COMPARISON: None RESULT: Right foot: No acute fracture or dislocation. Plantar calcaneal enthesophyte. Scattered midfoot degenerative changes with moderate joint space narrowing involving the second and third TMT joints and small marginal osteophytes. First MTP osteophytes and first proximal phalanx base subchondral cysts. No visualized erosion. Left foot: No acute fracture or dislocation. Plantar calcaneal and Achilles tendon enthesophytes. Scattered midfoot joint space narrowing greater and moderate to severely involving the medial cuneonavicular and second and third TMT joints, small osteophytes, and probable subchondral cysts. Suspicion of tiny erosion about the lateral aspect of the first proximal phalanx head at the first IP joint on oblique view IMPRESSION IMPRESSION: Bilateral foot degenerative changes and suspicion of tiny erosion of the left first proximal phalanx head. Bilateral calcaneal enthesophytes Uniform Cap Operator: [facility] Transcribe Date/Time: May 23 2024 6:58P Dictated by : ANAND DACOSTA MD This examination was interpreted and the report reviewed and electronically signed by: ANAND DACOSTA MD on May 23 2024 7:02PM EST [facility] XR Foot - bilateral AP and L ateral and obliqueOrdered By: Ccf Provider on 05-23-2024 [facility] CNOVon 05-19-2024 CNOV Office Visit (PODIWS ) MAXIMINO GILMORE ([id number]) 1960 M Date Time Provider Department 05/19/24 1:15 PM ENRIQUE WORTHY PODIWS During your visit today, we recorded the following information about you: Zonia Maloney RN 05/20/2024 7:22 AM Signed AMB ROOMING INTAKE FLOWSHEET DATA Pain Pain Level: 7 Pain Location: Other: See Comment (bilateral feet) Description: Aching Duration Amount of Time: (few) Duration Units: Months Frequency: Continuous Intervention/Comfort measure: Relaxation, Reposition Patient presents with: Left Foot - New, Pain, Swelling Right Foot - New, Pain Patient presents for bilateral foot pain and swelling to top of left foot. States that the foot pain has been ongoing for a long time, and swelling began a few months ago. Pain worse after he has been up walking, states that he is unable to take long walks due to the pain. XR prior to appointment. PapaEnrique nicole 05/20/2024 7:22 AM Signed Initial Podiatric Office Visit: Chief Complaint: This 63 year old male who presents with chief complaint:b/l foot pain HPI Patient presents to clinic for evaluation of b/l feet He has pain along the top of both feet L>R Patient states the pain has been present for a couple of months If the pain is severe, he will take ibuprofen. Patient states the pain is constant, worse with activity. PAIN EVALUATION 05/19/2024 1339 Pain Level: 7 Pain Location: Other: See Comment bilateral feet Description: Aching Duration Amount of Time: -- few Duration Units: Months Frequency: Continuous Intervention/Comfort measure: Relaxation;Reposition Hemoglobin A1C (%) Date Value 06/02/2022 5.3 PCP: Kimani Gentile MD, MD PAST MEDICAL HISTORY No date: Essential hypertension, benign Current Outpatient Medications Medication Sig traZODone (DESYREL) 50 mg tablet Take 1 tablet by mouth daily at bedtime. cetirizine HCl/pseudoephedrine (ZYRTEC-D ORAL) Take by mouth. AM gabapentin (NEURONTIN) 600 mg tablet Take 1 tablet at 5PM, 1 tablet at 8PM, and 1.5 tabs at 11PM. (Patient taking differently: 600 mg. OF 12/2023 taking Gabapentin x1 tablet 5:00 PM, x1 tablet 8:00 PM, x1.5 tablet 10:30 - 11:00 PM.) losartan (COZAAR) 100 mg tablet Take 100 mg by mouth once daily. OKLUY-JSNQP-4-DHA-EPA- LIPIDS ORAL Take 1,290 mg by mouth once daily. vitamin D3-folic acid 2,500 unit- 1 mg tab Take 2,000 Units by mouth once daily. famotidine(PEPCID AC 10 MG TAB) Take one(1) tablet daily. aspirin(HALFPRIN 81 MG TAB) Take one(1) tablet daily. No current facility-administered medications for this visit. ALLERGIES Allergen Reactions Naproxen Other: See Comments PAST SURGICAL HISTORY No date: PAST SURGICAL HISTORY OF Comment: carpal tunnel both wrist No date: PAST SURGICAL HISTORY OF Comment: partial amputation right thumb No date: PAST SURGICAL HISTORY OF Comment: tubes left ear as child No date: TONSILLECTOMY AND ADENOIDECTOMY FAMILY HISTORY Problem Relation Age of Onset Alzheimer's Disease Paternal Grandfather Arthritis Mother Arthritis Father Arthritis Maternal Grandmother Arthritis Maternal Grandfather Arthritis Paternal Grandmother Arthritis Paternal Grandfather Cancer Father prostate Cancer Paternal Grandfather prostate Heart Father Heart Paternal Grandmother Heart Maternal Grandfather Hypertension Mother Hypertension Father Hypertension Maternal Grandmother Hypertension Maternal Grandfather Hypertension Paternal Grandmother Hypertension Paternal Grandfather Diabetes Father Type II Social History Tobacco Use Smoking status: Former Packs/day: 1 Types: Cigarettes Tobacco comments: one pack per day Vaping Use Vaping Use: Never used Substance Use Topics Alcohol use: Yes Comment: rare Drug use: Not Currently Types: Marijuana REVIEW OF SYSTEMS GENERAL: Negative for Malaise, significant weight loss, fever RESPIRATORY: Negative for cough, wheezing and shortness of breath CARDIOVASCULAR: Negative for chest pain, leg swelling and palpitations GI: Negative for abdominal discomfort, blood in stools or black stools and change in bowel habits : Negative for dysuria, frequency and incontinence MUSCULOSKELETAL: Negative for joint pain or swelling, back pain, and muscle pain. SKIN: Negative for lesions, rash, and itching. HEMATOLOGY/LYMPHOLOGY Negative for prolonged bleeding, bruising easily, and swollen nodes. ENDOCRINE: Negative for cold or heat intolerance, polyuria, polydipsia and goiter. NEURO: negative Physical Exam: Constitutional: Pt is a well developed 63 year old male who is alert, oriented and cooperative Eyes: Following during examination. No redness or drainage. Respiratory: RR normal and nonlabored. Even breathing. No evidence of distress or shortness of breath. Psychology: Patient is engaged during conversa (more content not included)... Normal [facility] metabolic 2000 panelOrdered By: Katie Avitia on 05-19-2024 Albumin [Mass/Vol] 4.3 g/dL 3.9 - 4.9 g/dL [facility] ALP [Catalytic activity/Vol] 96 U/L 38 - 113 U/L [facility] ALT [Catalytic activity/Vol] 25 U/L 10 - 54 U/L [facility] Anion gap [Moles/Vol] 10 mmol/L 8 - 15 mmol/L [facility] AST [Catalytic activity/Vol] 21 U/L 14 - 40 U/L [facility] Bilirubin [Mass/Vol] 0.6 mg/dL 0.2 - 1 .3 mg/dL [facility] Calcium [Mass/Vol] 10.7 mg/dL High 8.5 - 10. 2 mg/dL [facility] Chloride [Moles/Vol] 104 mmol/L 98 - 10 7 mmol/L [facility] CO2 [Moles/Vol] 25 mmol/L 22 - 30 mmol/L [facility] Creatinine [Mass/Vol] 0.92 mg/dL 0.73 - 1.22 mg/dL [facility] GFR/1.73 sq M.predicted among non-blacks MDRD (S/P/Bld) [Vol rate/Area] 94 mL/min/{1.73_m2} - PINF [facility] Comment on above: Estimated Glomerular Filtration Rate (eGFR) is calculated using the 2020 CKD-EPI creatinine equation. This equation utilizes serum creatinine, sex, and age as parameters. The creatinine assay has traceable calibration to isotope dilution-mass spectrometry. Refer to KDIGO guidelines for clinical interpretation. In patients with unstable renal function, e.g. those with acute kidney injury, the eGFR may not accurately reflect actual GFR. Glucose [Mass/Vol] 103 mg/dL High 74 - 99 mg/dL [facility] Comment on above: The [place] Diabete s Association (ADA) provides guidance for cutoff values for fasting glucose and random glucose. The ADA defines fasting as no caloric intake for at least 8 hours. Fasting plasma glucose results between 100 to 125 mg/dL indicate increased risk for diabetes (prediabetes). Fasting plasma glucose results greater than or equal to 126 mg/dL meet the criteria for diagnosis of diabetes. In the absence of unequivocal hyperglycemia, results should be confirmed by repeat testing. In a patient with classic symptoms of hyperglycemia or hyperglycemic crisis, random plasma glucose results greater than or equal to 200 mg/dL meet the criteria for diagnosis of diabetes. Reference: Standards of Medical Care in Diabetes 2016, [place] [employer]. Diabetes Care. 2016.39(Suppl 1). Interpretation and review of laboratory results Abnormal [facility] Potassium [Moles/Vol] 4.3 mmol/L 3.7 - 5.1 mmol/L [facility] Protein [Mass/Vol] 6.4 g/dL 6.3 - 8.0 g/dL [facility] Sodium [Moles/Vol] 139 mmol/L 136 - 144 mmol/L [facility] Urea nitrogen [Mass/Vol] 19 mg/dL 9 - 24 mg/dL [facility] Comprehensive metabolic 2000 panelon 05-19-2024 Albumin [Mass/Vol] 4.3 g/dL Normal 3.9-4.9 [facility] Comment on above: Order Comment: Speci men Type: BLOOD SPECIMENOrdering Facility: [facility] Address: [address] [place] [address] Performed By: #### 2 4323-8 ####[facility] MIAMIWNJLIA [id number] [place] [address] [place] ALP [Catalytic activity/Vol] 96 U/L Normal 38-113 [facility] Comment on above: Order Comment: Speci men Type: BLOOD SPECIMENOrdering Facility: [facility] Address: [address] [place] [address] Performed By: #### 2 4323-8 ####[facility]ALTOWNCLIA [id number] [place] [address] [place] ALT [Catalytic activity/Vol] 25 U/L Normal 10-54 [facility] Comment on above: Order Comment: Calebi men Type: BLOOD SPECIMENOrdering Facility: [facility] Address: [address] [place] [address] Performed By: #### 2 4323-8 ####[facility] MIAMIWNJLIA [id number] [place] [address] [place] Anion gap [Moles/Vol] 10 mmol/L Normal 8-15 [facility] Comment on above: Order Comment: Speci men Type: BLOOD SPECIMENOrdering Facility: [facility] Address: [address] [place] [address] Performed By: #### 2 4323-8 ####[facility] MIAMIWNCLIA [id number] [place] [address] [place] AST [Catalytic activity/Vol] 21 U/L Normal 14-40 [facility] Comment on above: Order Comment: Speci men Type: BLOOD SPECIMENOrdering Facility: [facility] Address: [address] [place] [address] Performed By: #### 2 4323-8 ####[facility]ITALNCLIA [id number] [place] [address] [place] Bilirubin [Mass/Vol] 0.6 mg/dL Normal 0.2-1.3 [facility] Comment on above: Order Comment: Speci men Type: BLOOD SPECIMENOrdering Facility: [facility] Address: [address] [place] [address] Performed By: #### 2 4323-8 ####[facility]ITALNCLIA [id number] [place] [address] [place] Calcium [Mass/Vol] 10.7 mg/dL High 8.5-10.2 [facility] Comment on above: Order Comment: Speci men Type: BLOOD SPECIMENOrdering Facility: [facility] Address: [address] [place] [address] Performed By: #### 2 4323-8 ####[facility]ITALNCLIA [id number] [place] [address] [place] Chloride [Moles/Vol] 104 mmol/L Normal 98-107 [facility] Comment on above: Order Comment: Speci men Type: BLOOD SPECIMENOrdering Facility: [facility] Address: [address] [place] [address] Performed By: #### 2 4323-8 ####[facility] WINDYWNCLIA [id number] [place] [address] [place] CO2 [Moles/Vol] 25 mmol/L Normal 22-30 [facility] Comment on above: Order Comment: Speci men Type: BLOOD SPECIMENOrdering Facility: [facility] Address: [address] [place] [address] Performed By: #### 2 4323-8 ####[facility] MIAMIWNCLIA [id number] [address] [place] Creatinine [Mass/Vol] 0.92 mg/dL Normal 0.73-1.22 [facility] Comment on above: Order Comment: Speci men Type: BLOOD SPECIMENOrdering Facility: [facility] Address: [address] [place] [address] Performed By: #### 2 4323-8 ####[facility]ITALNCLIA [id number] [address] Creatinine and Glomerular filtration rate.predicted panel (S/P/Bld) 94 mL/min/1.73m??? Normal >=60 [facility] Comment on above: Order Comment: Speci men Type: BLOOD SPECIMENOrdering Facility: [facility] Address: [address] [place] [address] Result Comment: Dione mated Glomerular Filtration Rate (eGFR) is calculated using the 2020 CKD-EPI creatinine equation. This equation utilizes serum creatinine, sex, and age as parameters. The creatinine assay has traceable calibration to isotope dilution-mass spectrometry. Refer to KDIGO guidelines for clinical interpretation. In patients with unstable renal function, e.g. those with acute kidney injury, the eGFR may not accurately reflect actual GFR. Performed By: #### 2 4323-8 ####[facility] MIAMIWNCLIA [id number] [place] [address] [place] Glucose [Mass/Vol] 103 mg/dL High 74-99 [facility] Comment on above: Order Comment: Speci men Type: BLOOD SPECIMENOrdering Facility: [facility] Address: [address] [place] [address] Result Comment: The [place] Diabetes Association (ADA) provides guidance for cutoff values for fasting glucose and random glucose. The ADA defines fasting as no caloric intake for at least 8 hours. Fasting plasma glucose results between 100 to 125 mg/dL indicate increased risk for diabetes (prediabetes). Fasting plasma glucose results greater than or equal to 126 mg/dL meet the criteria for diagnosis of diabetes. In the absence of unequivocal hyperglycemia, results should be confirmed by repeat testing. In a patient with classic symptoms of hyperglycemia or hyperglycemic crisis, random plasma glucose results greater than or equal to 200 mg/dL meet the criteria for diagnosis of diabetes. Reference: Standards of Medical Care in Diabetes 2016, [place] Diabetes Association. Diabetes Care. 2016.39(Suppl 1). Performed By: #### 2 4323-8 ####[facility] MIAMIWNCLIA [id number] [place] [address] [place] Potassium [Moles/Vol] 4.3 mmol/L Normal 3.7-5.1 [facility] Comment on above: Order Comment: Speci men Type: BLOOD SPECIMENOrdering Facility: [facility] Address: [address] [place] [address] Performed By: #### 2 4323-8 ####[facility] MILLTOWNCLIA [id number] [place] [address] [place] Protein [Mass/Vol] 6.4 g/dL Normal 6.3-8.0 [facility] Comment on above: Order Comment: Speci men Type: BLOOD SPECIMENOrdering Facility: [facility] Address: [address] [place], [place] [address] Performed By: #### 2 4323-8 ####[facility] MIAMIWNCLIA [id number] [place] [address] [place] Sodium [Moles/Vol] 139 mmol/L Normal 136-144 [facility] Comment on above: Order Comment: Speci men Type: BLOOD SPECIMENOrdering Facility: [facility] Address: [address] [place] [address] Performed By: #### 2 4323-8 ####[facility] NIKO [id number] [address] [place] [place] Urea nitrogen [Mass/Vol] 19 mg/dL Normal 9-24 [facility] Comment on above: Order Comment: Speci men Type: BLOOD SPECIMENOrdering Facility: [facility] Address: [address] [place] [address] Performed By: #### [id number] ####[facility] [place] NIKKYNCLIFrench [id number] [place] [address] [place] XR FOOT 3V AP/LAT/OBL BILon 05-19-2024 XR FOOT 3V AP/LAT/OBL SATNAM * * *Final Report* * * DATE OF EXAM: May 19 2024 1:21PM WOX [id number] - XR FOOT 3V AP/LAT/OBL SATNAM / PROCEDURE REASON: multiple diagnoses * * * * Physician Interpretation * * * * HISTORY: Bilateral foot pain Bilateral foot pain . Bilateral foot pain that began this summer. Pt believes pain may be due to wearing flip flops all summer so far. TECHNIQUE: XR FOOT 3V AP/LAT/OBL SATNAM Laterality: BILATERAL Number of different views (projections): 3 COMPARISON: None RESULT: Right foot: No acute fracture or dislocation. Plantar calcaneal enthesophyte. Scattered midfoot degenerative changes with moderate joint space narrowing involving the second and third TMT joints and small marginal osteophytes. First MTP osteophytes and first proximal phalanx base subchondral cysts. No visualized erosion. Left foot: No acute fracture or dislocation. Plantar calcaneal and Achilles tendon enthesophytes. Scattered midfoot joint space narrowing greater and moderate to severely involving the medial cuneonavicular and second and third TMT joints, small osteophytes, and probable subchondral cysts. Suspicion of tiny erosion about the lateral aspect of the first proximal phalanx head at the first IP joint on oblique view IMPRESSION: Bilateral foot degenerative changes and suspicion of tiny erosion of the left first proximal phalanx head. Bilateral calcaneal enthesophytes Uniform Cap Operator: FRANCISCO Transcribe Date/Time: May 23 2024 6:58P Dictated by : ANAND DACOSTA MD This examination was interpreted and the report reviewed and electronically signed by: ANAND DACOSTA MD on May 23 2024 7:02PM EST [id number] Normal [facility] XR Foot - bilateral AP and L ateral and obliqueon 05-19-2024 Radiology Study observation (narrative) [facility] 25-hydroxyvitamin D3 [Mass/V ol]on 03-08-2024 Interpretation and review of laboratory results Normal [facility] The reference range interval was based on an analysis of samples from healthy adults and may not pertain to children from 0-[address] [facility] FERRITINon 03-08-2024 Ferritin [Mass/Vol] 173.0 ng/mL 30.3 - 5 65.7 ng/mL [facility] Ferritin [Mass/Vol]on 2023 Interpretation and review of laboratory results Normal [facility] Iron and Iron binding capaci ty panelon 03-08-2024 Interpretation and review of laboratory results Normal [facility] Iron [Mass/Vol] 62 ug/dL 41 - 186 ug/dL [facility] Iron binding capacity [Mass/Vol] 318 ug/dL 232 - 386 ug/dL [facility] Iron/TIBC [Molar ratio] 19.5 % 15.0 - 57.0 % [facility] VITAMIN D 25 HYDROXYon 03-08 25-hydroxyvitamin D3 [Mass/Vol] 42.6 ng/mL 31.0 - 80.0 ng/mL [facility] Comment on above: Classification of 25 [place] Vitamin D status: Deficiency/Insufficiency: < or = 30 ng/ml. Sufficiency/Optimal Levels: 31-80 ng/mL Toxicity: > 100 ng/mL. Test performed by chemiluminescent immunoassay. Absolute lymphocyte countOrd ered By: Kimani Gentile on 08-03-2023 Lymphocytes Auto (Unsp spec) [#/Vol] 1.97 10*3/uL 0.83-4.51 [facility] Basophil percentageOrdered B y: Kimani Gentile on 08-03-2023 Basophils/100 WBC (Bld) 0.8 % 0-1 [facility] Bilirubin [Mass/Vol] 0.40 mg/dL 0.20-1.00 [facility] Comment on above: For patients on eltr ombopag therapy, use of Dimension [place] TBIL is not recommended. Chloride [Moles/Vol] 109 mmol/L 98-107 [facility] Cholesterol [Mass/Vol] 171 mg/dL <200 [facility] Comment on above: <200 mg/dL Desirable 200-240 mg/dL Borderline >240 mg/dL High Risk Eosinophils/100 WBC (Bld) 8.8 % 0-5 [facility] Glucose [Mass/Vol] 103 mg/dL 74-106 [facility] Comment on above: Fasting Glucose resu lt from 100 to 125 mg/dL suggests IMPAIRED HOMEOSTASIS per A.D.A. criteria. Neutrophils (Bld) [#/Vol] 4.9 10*3/uL 2.0-7.7 [facility] Neutrophils/100 WBC (Bld) 56.5 % 47-70 [facility] Potassium [Moles/Vol] 4.4 mmol/L 3.5-5.1 [facility] Comment on above: Slight Hemolysis, Re sult may be falsely increased. Protein [Mass/Vol] 6.5 g/dL 6.4-8.2 [facility] Sodium [Moles/Vol] 140 mmol/L 136-145 [facility] Triglyceride [Mass/Vol] 102 mg/dL <199 [facility] Comment on above: The drugs N-Acetylcy steine and Metamizole may falsely depress this assay.Serum Triglycerides Reference Interval Normal <150 mg/dL Borderline high 150 - 199 mg/dL High 200 - 499 mg/dL Very High > or = 500 mg/dL WBC (Bld) [#/Vol] 8.7 10*3/uL 4.4-11.0 [facility] Blood erythrocytes count (nu mber/volume)Ordered By: Kimani Gentile on 08-03-2023 RBC (Bld) [#/Vol] 4.64 10*6/uL 4.6-6.2 [facility] Blood hemoglobin measurement (mass/volume)Ordered By: Kimani Gentile on 08-03-2023 Hemoglobin (Bld) [Mass/Vol] 14.2 g/dL 13.0-16.5 [facility] Blood lymphocytes/100 leukoc ytesOrdered By: Kimani Gentile on 08-03-2023 Lymphocytes/100 WBC (Bld) 22.7 % 19-41 [facility] Blood monocytes/100 leukocyt esOrdered By: Kimani Gentile on 08-03-2023 Monocytes/100 WBC (Bld) 10.5 % 0-10 [facility] Blood platelet mean volumeOr dered By: Kimani Gentile on 08-03-2023 Platelet mean volume (Bld) [Entitic vol] 10.2 fL 6.2-12.0 [facility] Determination of erythrocyte mean corpuscular volume (MCV)Ordered By: Kimani Gentile on 08-03-2023 MCV (RBC) [Entitic vol] 97.0 fL 80-94 [facility] Hematocrit Auto (Bld) [Volum e fraction]Ordered By: Kimani Gentile on 08-03-2023 Hematocrit (Bld) [Volume fraction] 45.0 % 40-54 [facility] Laboratory - Chemistry and C hemistry - challengeOrdered By: Kimani Gentile on 08-03-2023 ALP [Catalytic activity/Vol] 81 U/L 45-117 [facility] ALT [Catalytic activity/Vol] 34 U/L 16-61 [facility] CO2 [Moles/Vol] 26.0 mmol/L 21.0-32.0 [facility] Globulin (S) [Mass/Vol] 3.1 g/dL 2.2-4.2 [facility] Urea nitrogen/Creatinine [Mass ratio] 17.8 mg/mg 10-20 [facility] Laboratory - Hematology and Cell countsOrdered By: Kimani Gentile on 08-03-2023 Erythrocyte distribution width (RBC) [Entitic vol] 46.6 fL 35.1-43.9 [facility] Erythrocyte distribution width (RBC) [Ratio] 13.2 % 11.6-14.6 [facility] Immature granulocytes/100 WBC (Bld) 0.700 % 0.0-0.9 [facility] Comment on above: IG% - Immature Granu locytes (promyelocytes, myelocytes and metamyelocytes) > 1% indicates that a LEFT SHIFT is Present. MCH (RBC) [Entitic mass] 30.6 pg 27.0-32.0 [facility] Nucleated RBC/100 WBC (Bld) [Ratio] 0 % 0-5 [facility] MCHC Auto (RBC) [Mass/Vol]Or dered By: Kimani Gentile on 08-03-2023 MCHC (RBC) [Mass/Vol] 31.6 g/dL 32-36 [facility] No Panel InformationOrdered By: Kimani Gentile on 08-03-2023 Estimated GFR (MDRD) Amer 118 mL/min >60 [facility] Comment on above: GFR Calc Estimated GFR (MDRD) Non-Af Amer 98 mL/min >60 [facility] Comment on above: Non- GFR Calc Prostate Specific Antigen Screen 0.91 ng/mL 0.00-4.00 [facility] Comment on above: This test was perfor med using the TPSA assay method for theDoYouRemember chemistry system. Values obtained with differentassay methods cannot be used interchangably.When changing PSA assays in the course of monitoring apatient, additional sequential testing should be carriedout to confirm baseline values. Vitamin D 25-Hydroxy 53.6 ng/mL [facility] Comment on above: Vitamin D 25(OH) Sta tus Range Deficiency <20 ng/mL (50nmol/L) Insufficiency 20 - 30 ng/mL (50 - 75 nmol/L) Sufficiency 30 - 100 ng/mL (75 - 250 nmol/L) Toxicity >100 ng/mL (>250 nmol/L) Platelets bldOrdered By: Seng Gentile on 08-03-2023 Platelets (Bld) [#/Vol] 241 10*3/uL 150-450 [facility] Serum or plasma albumin ruth ann urement (mass/volume)Ordered By: Kimani Gentile on 08-03-2023 Albumin [Mass/Vol] 3.4 g/dL 3.2-5.0 [facility] Serum or plasma albumin/glob ulin mass ratioOrdered By: Kimani Gentile on 08-03-2023 Albumin/Globulin [Mass ratio] 1.1 {ratio} 0.9-2.4 [facility] Serum or plasma calcium ruth ann urement (mass/volume)Ordered By: Kimani Gentile on 08-03-2023 Calcium [Mass/Vol] 9.3 mg/dL 8.5-10.1 [facility] Serum or plasma cholesterol in HDL measurement (mass/volume)Ordered By: Kimani Gentile on 08-03-2023 Cholesterol in HDL [Mass/Vol] 40 mg/dL >40 [facility] Comment on above: The drugs N-Acetylcy steine and Metamizole may falsely depress this assay. Reference Range HDL <40 mg/dL Low HDL Cholesterol HDL >or= 60 mg/dL High HDL Cholesterol Serum or plasma cholesterol in VLDL measurement (mass/volume)Ordered By: Kimani Gentile on 08-03-2023 Cholesterol in VLDL [Mass/Vol] 20 mg/dL 5-40 [facility] Serum or plasma creatinine m easurement (mass/volume)Ordered By: Kimani Gentile on 08-03-2023 Creatinine [Mass/Vol] 0.84 mg/dL 0.70-1.30 [facility] Comment on above: The validity of the calculated GFR & GFRAA in patients over 70 years has not been determined. Clinical correlation is essential. Serum or plasma low density lipoprotein (LDL) cholesterol measurement (mass/volume)Ordered By: Kimani Gentile on 08-03-2023 Cholesterol in LDL [Mass/Vol] 111 mg/dL 0-130 [facility] Serum or plasma urea nitroge n measurement (mass/volume)Ordered By: Kimani Gentile on 08-03-2023 Urea nitrogen [Mass/Vol] 15 mg/dL 7-18 [facility] Thin prep Papanicolaou smear with manual screeningOrdered By: Kimani Gentile on 08-03-2023 Thin prep Papanicolaou smear with manual screening 24 U/L 15-37 [facility] Comment on above: Slight Hemolysis, Re sult may be falsely increased. Thin prep Papanicolaou smear with manual screening 5 5-15 [facility] Whole blood hemoglobin A1c/t otal hemoglobin ratio (mass fraction)Ordered By: Kimani Gentile on 08-03-2023 HbA1c (Bld) [Mass fraction] 5.4 % 3.8-5.6 [facility] Comment on above: Normal < 5.7 % Predi abetic 5.7 - 6.4 % Diabetic >or= 6.5 % Please note range changes. Absolute lymphocyte countOrd ered By: Dr. Gentile on 11-18-2022 Lymphocytes Auto (Unsp spec) [#/Vol] 1.75 10*3/uL 0.83-4.51 [facility] Basophil percentageOrdered B y: Dr. Gentile on 11-18-2022 Basophil percentage 0 SEEN /hpf 0-5 [facility] Basophils/100 WBC (Bld) 1.0 % 0-1 [facility] Bilirubin [Mass/Vol] 0.50 mg/dL 0.20-1.00 [facility] Comment on above: For patients on eltr ombopag therapy, use of Dimension [place] TBIL is not recommended. Chloride [Moles/Vol] 108 mmol/L 98-107 [facility] Cholesterol [Mass/Vol] 188 mg/dL <200 [facility] Comment on above: <200 mg/dL Desirable 200-240 mg/dL Borderline >240 mg/dL High Risk Eosinophils/100 WBC (Bld) 8.2 % 0-5 [facility] Glucose [Mass/Vol] 101 mg/dL 74-106 [facility] Comment on above: Fasting Glucose resu lt from 100 to 125 mg/dL suggests IMPAIRED HOMEOSTASIS per A.D.A. criteria. Neutrophils (Bld) [#/Vol] 3.8 10*3/uL 2.0-7.7 [facility] Neutrophils/100 WBC (Bld) 55.1 % 47-70 [facility] Potassium [Moles/Vol] 4.3 mmol/L 3.5-5.1 [facility] Protein [Mass/Vol] 6.9 g/dL 6.4-8.2 [facility] Sodium [Moles/Vol] 141 mmol/L 136-145 [facility] Triglyceride [Mass/Vol] 154 mg/dL <199 [facility] Comment on above: The drugs N-Acetylcy steine and Metamizole may falsely depress this assay.Serum Triglycerides Reference Interval Normal <150 mg/dL Borderline high 150 - 199 mg/dL High 200 - 499 mg/dL Very High > or = 500 mg/dL WBC (Bld) [#/Vol] 6.9 10*3/uL 4.4-11.0 [facility] Bilirubin Test strip Ql (U)O rdered By: Dr. Gentile on 11-18-2022 Bilirubin Ql (U) Negative Negative [facility] Blood erythrocytes count (nu mber/volume)Ordered By: Dr. Gentile on 11-18-2022 RBC (Bld) [#/Vol] 4.89 10*6/uL 4.6-6.2 [facility] Blood hemoglobin measurement (mass/volume)Ordered By: Dr. Gentile on 11-18-2022 Hemoglobin (Bld) [Mass/Vol] 14.9 g/dL 13.0-16.5 [facility] Blood lymphocytes/100 leukoc ytesOrdered By: Dr. Gentile on 11-18-2022 Lymphocytes/100 WBC (Bld) 25.3 % 19-41 [facility] Blood monocytes/100 leukocyt esOrdered By: Dr. Gentile on 11-18-2022 Monocytes/100 WBC (Bld) 9.8 % 0-10 [facility] Blood platelet mean volumeOr dered By: Dr. Gentile on 11-18-2022 Platelet mean volume (Bld) [Entitic vol] 9.4 fL 6.2-12.0 [facility] Determination of erythrocyte mean corpuscular volume (MCV)Ordered By: Dr. Gentile on 11-18-2022 MCV (RBC) [Entitic vol] 96.1 fL 80-94 [facility] Hematocrit Auto (Bld) [Volum e fraction]Ordered By: Dr. Gentile on 11-18-2022 Hematocrit (Bld) [Volume fraction] 47.0 % 40-54 [facility] Ketones Test strip Ql (U)Ord ered By: Dr. Gentile on 11-18-2022 Ketones Ql (U) Negative Negative [facility] Laboratory - Chemistry and C hemistry - challengeOrdered By: Dr. Gentile on 11-18-2022 ALP [Catalytic activity/Vol] 76 U/L 45-117 [facility] ALT [Catalytic activity/Vol] 34 U/L 16-61 [facility] CO2 [Moles/Vol] 29.0 mmol/L 21.0-32.0 [facility] Globulin (S) [Mass/Vol] 3.0 g/dL 2.2-4.2 [facility] Urea nitrogen/Creatinine [Mass ratio] 19.2 mg/mg 10-20 [facility] Laboratory - Hematology and Cell countsOrdered By: Dr. Gentile on 11-18-2022 Erythrocyte distribution width (RBC) [Entitic vol] 46.5 fL 35.1-43.9 [facility] Erythrocyte distribution width (RBC) [Ratio] 13.1 % 11.6-14.6 [facility] Immature granulocytes/100 WBC (Bld) 0.600 % 0.0-0.9 [facility] Comment on above: IG% - Immature Granu locytes (promyelocytes, myelocytes and metamyelocytes) > 1% indicates that a LEFT SHIFT is Present. MCH (RBC) [Entitic mass] 30.5 pg 27.0-32.0 [facility] Nucleated RBC/100 WBC (Bld) [Ratio] 0 % 0-5 [facility] MCHC Auto (RBC) [Mass/Vol]Or dered By: Dr. Gentile on 11-18-2022 MCHC (RBC) [Mass/Vol] 31.7 g/dL 32-36 [facility] Mucus LM Ql (Urine sed)Order ed By: Dr. Gentile on 11-18-2022 Mucus Ql (Urine sed) 2+ /hpf [facility] Nitrite Test strip Ql (U)Ord ered By: Dr. Gentile on 11-18-2022 Nitrite Ql (U) Negative Negative [facility] No Panel InformationOrdered By: Dr. Gentile on 11-18-2022 Estimated GFR (MDRD) Amer 120 mL/min >60 [facility] Comment on above: GFR Calc Estimated GFR (MDRD) Non-Af Amer 99 mL/min >60 [facility] Comment on above: Non- GFR Calc Thyroid Stimulating Hormone (TSH) 1.86 uIU/mL 0.358-3.74 [facility] Vitamin D 25-Hydroxy 44.0 ng/mL [facility] Comment on above: Vitamin D 25(OH) Sta tus Range Deficiency <20 ng/mL (50nmol/L) Insufficiency 20 - 30 ng/mL (50 - 75 nmol/L) Sufficiency 30 - 100 ng/mL (75 - 250 nmol/L) Toxicity >100 ng/mL (>250 nmol/L) Platelets bldOrdered By: Dr. Gentile on 11-18-2022 Platelets (Bld) [#/Vol] 263 10*3/uL 150-450 [facility] Protein Test strip Ql (U)Ord ered By: Dr. Gentile on 11-18-2022 Protein Ql (U) Negative Negative [facility] Serum or plasma albumin ruth ann urement (mass/volume)Ordered By: Dr. Gentile on 11-18-2022 Albumin [Mass/Vol] 3.9 g/dL 3.2-5.0 [facility] Serum or plasma albumin/glob ulin mass ratioOrdered By: Dr. Gentile on 11-18-2022 Albumin/Globulin [Mass ratio] 1.3 {ratio} 0.9-2.4 [facility] Serum or plasma calcium ruth ann urement (mass/volume)Ordered By: Dr. Gentile on 11-18-2022 Calcium [Mass/Vol] 9.8 mg/dL 8.5-10.1 [facility] Serum or plasma cholesterol in HDL measurement (mass/volume)Ordered By: Dr. Gentile on 11-18-2022 Cholesterol in HDL [Mass/Vol] 38 mg/dL >40 [facility] Comment on above: The drugs N-Acetylcy steine and Metamizole may falsely depress this assay. Reference Range HDL <40 mg/dL Low HDL Cholesterol HDL >or= 60 mg/dL High HDL Cholesterol Serum or plasma cholesterol in VLDL measurement (mass/volume)Ordered By: Dr. Gentile on 11-18-2022 Cholesterol in VLDL [Mass/Vol] 31 mg/dL 5-40 [facility] Serum or plasma creatinine m easurement (mass/volume)Ordered By: Dr. Gentile on 11-18-2022 Creatinine [Mass/Vol] 0.84 mg/dL 0.70-1.30 [facility] Comment on above: The validity of the calculated GFR & GFRAA in patients over 70 years has not been determined. Clinical correlation is essential. Serum or plasma low density lipoprotein (LDL) cholesterol measurement (mass/volume)Ordered By: Dr. Gentile on 11-18-2022 Cholesterol in LDL [Mass/Vol] 119 mg/dL 0-130 [facility] Serum or plasma urea nitroge n measurement (mass/volume)Ordered By: Dr. Gentile on 11-18-2022 Urea nitrogen [Mass/Vol] 16 mg/dL 7-18 [facility] Squamous epithelial cells de tection in urine sediment by light microscopyOrdered By: Dr. Gentile on 11-18-2022 Epithelial cells.squamous LM Ql (Urine sed) 0 SEEN /hpf 0-5 [facility] Thin prep Papanicolaou smear with manual screeningOrdered By: Dr. Gentile on 11-18-2022 Thin prep Papanicolaou smear with manual screening 20 U/L 15-37 [facility] Thin prep Papanicolaou smear with manual screening 4 5-15 [facility] Urine blood detectionOrdered By: Dr. Gentile on 11-18-2022 RBC Ql (U) Negative Negative [facility] RBC Ql (U) 0 SEEN /hpf 0-5 [facility] Urine clarityOrdered By: Dr. Gentile on 11-18-2022 Clarity (U) Clear Clear [facility] Urine color determinationOrd ered By: Dr. Gentile on 11-18-2022 Color (U) Yellow Yellow [facility] Urine glucose detectionOrder ed By: Dr. Gentile on 11-18-2022 Glucose Ql (U) Normal mg/dl Normal [facility] Urine leukocyte esterase det ection by dipstickOrdered By: Dr. Gentile on 11-18-2022 Leukocyte esterase Test strip Ql (U) Negative Negative [facility] Urine pHOrdered By: Dr. Brian lujan on 11-18-2022 pH (U) 5.0 [pH] 5.0 - 8.0 [facility] Urine sediment bacteria coun t by microscopy (number/high power field)Ordered By: Dr. Gentile on 11-18-2022 Bacteria LM.HPF (Urine sed) [#/Area] 0 /[HPF] None Seen [facility] Urine specific gravity measu rementOrdered By: Dr. Gentile on 11-18-2022 Specific gravity (U) [Rel density] 1.020 1.002-1.030 [facility] Urobilinogen Auto test strip Ql (U)Ordered By: Dr. Gentile on 11-18-2022 Urobilinogen Ql (U) Normal mg/dl Normal [facility] Whole blood hemoglobin A1c/t otal hemoglobin ratio (mass fraction)Ordered By: Dr. Gentile on 11-18-2022 HbA1c (Bld) [Mass fraction] 5.5 % 3.8-5.6 [facility] Comment on above: Normal < 5.7 % Predi abetic 5.7 - 6.4 % Diabetic >or= 6.5 % Please note range changes. Absolute lymphocyte counton 05-20-2022 Lymphocytes Auto (Unsp spec) [#/Vol] 1.79 10*3/uL 0.83-4.51 [facility] Work Phone: Basophil percentageon 2021 Basophils/100 WBC (Bld) 0.8 % 0-1 [facility] Work Phone: Bilirubin [Mass/Vol] 0.40 mg/dL 0.20-1.00 [facility] Work Phone: Comment on above: For patients on eltr ombopag therapy, use of Dimension [place] TBIL is not recommended. Chloride [Moles/Vol] 107 mmol/L 98-107 [facility] Work Phone: Cholesterol [Mass/Vol] 174 mg/dL <200 [facility] Work Phone: Comment on above: <200 mg/dL Desirable 200-240 mg/dL Borderline >240 mg/dL High Risk Eosinophils/100 WBC (Bld) 9.4 % 0-5 [facility] Work Phone: Glucose [Mass/Vol] 110 mg/dL 74-106 [facility] Work Phone: Comment on above: Fasting Glucose resu lt from 100 to 125 mg/dL suggests IMPAIRED HOMEOSTASIS per A.D.A. criteria. Neutrophils (Bld) [#/Vol] 4.3 10*3/uL 2.0-7.7 [facility] Work Phone: Neutrophils/100 WBC (Bld) 55.5 % 47-70 [facility] Work Phone: Potassium [Moles/Vol] 4.4 mmol/L 3.5-5.1 [facility] Work Phone: [phone] Protein [Mass/Vol] 6.6 g/dL 6.4-8.2 [facility] Work Phone: Sodium [Moles/Vol] 138 mmol/L 136-145 [facility] Work Phone: Triglyceride [Mass/Vol] 102 mg/dL <199 [facility] Work Phone: Comment on above: The drugs N-Acetylcy steine and Metamizole may falsely depress this assay.Serum Triglycerides Reference Interval Normal <150 mg/dL Borderline high 150 - 199 mg/dL High 200 - 499 mg/dL Very High > or = 500 mg/dL WBC (Bld) [#/Vol] 7.7 10*3/uL 4.4-11.0 [facility] Work Phone: Blood erythrocytes count (nu mber/volume)on 05-20-2022 RBC (Bld) [#/Vol] 4.50 10*6/uL 4.6-6.2 [facility] Work Phone: Blood hemoglobin measurement (mass/volume)on 05-20-2022 Hemoglobin (Bld) [Mass/Vol] 13.8 g/dL 13.0-16.5 [facility] Work Phone: Blood lymphocytes/100 leukoc yteson 05-20-2022 Lymphocytes/100 WBC (Bld) 23.3 % 19-41 [facility] Work Phone: Blood monocytes/100 leukocyt eson 08-02-2022 Monocytes/100 WBC (Bld) 10.7 % 0-10 [facility] Work Phone: Blood platelet mean volumeon 05-20-2022 Platelet mean volume (Bld) [Entitic vol] 9.7 fL 6.2-12.0 [facility] Work Phone: Determination of erythrocyte mean corpuscular volume (MCV)on 05-20-2022 MCV (RBC) [Entitic vol] 96.7 fL 80-94 [facility] Work Phone: Hematocrit Auto (Bld) [Volum e fraction]on 05-20-2022 Hematocrit (Bld) [Volume fraction] 43.5 % 40-54 [facility] Work Phone: Laboratory - Chemistry and C hemistry - challengeon 05-20-2022 ALP [Catalytic activity/Vol] 80 U/L 45-117 [facility] Work Phone: ALT [Catalytic activity/Vol] 31 U/L 16-61 [facility] Work Phone: CO2 [Moles/Vol] 25.0 mmol/L 21.0-32.0 [facility] Work Phone: Globulin (S) [Mass/Vol] 3.1 g/dL 2.2-4.2 [facility] Work Phone: Urea nitrogen/Creatinine [Mass ratio] 20.9 mg/mg 10-20 [facility] Work Phone: Laboratory - Hematology and Cell countson 05-20-2022 Erythrocyte distribution width (RBC) [Entitic vol] 47.4 fL 35.1-43.9 [facility] Work Phone: Erythrocyte distribution width (RBC) [Ratio] 13.2 % 11.6-14.6 [facility] Work Phone: Immature granulocytes/100 WBC (Bld) 0.300 % 0.0-0.9 [facility] Work Phone: Comment on above: IG% - Immature Granu locytes (promyelocytes, myelocytes and metamyelocytes) > 1% indicates that a LEFT SHIFT is Present. MCH (RBC) [Entitic mass] 30.7 pg 27.0-32.0 [facility] Work Phone: Nucleated RBC/100 WBC (Bld) [Ratio] 0 % 0-5 [facility] Work Phone: MCHC Auto (RBC) [Mass/Vol]on 05-20-2022 MCHC (RBC) [Mass/Vol] 31.7 g/dL 32-36 [facility] Work Phone: No Panel Informationon 05-20 Estimated GFR (MDRD) Amer 103 mL/min >60 [facility] Work Phone: Comment on above: GFR Calc Estimated GFR (MDRD) Non-Af Amer 85 mL/min >60 [facility] Work Phone: Comment on above: Non- GFR Calc Thyroid Stimulating Hormone (TSH) 1.34 uIU/mL 0.358-3.74 [facility] Work Phone: Vitamin D 25-Hydroxy 56.6 ng/mL [facility] Work Phone: Comment on above: Vitamin D 25(OH) Sta tus Range Deficiency <20 ng/mL (50nmol/L) Insufficiency 20 - 30 ng/mL (50 - 75 nmol/L) Sufficiency 30 - 100 ng/mL (75 - 250 nmol/L) Toxicity >100 ng/mL (>250 nmol/L) Platelets bldon 05-20-2022 Platelets (Bld) [#/Vol] 271 10*3/uL 150-450 [facility] Work Phone: Serum or plasma albumin ruth ann urement (mass/volume)on 05-20-2022 Albumin [Mass/Vol] 3.5 g/dL 3.2-5.0 [facility] Work Phone: Serum or plasma albumin/glob ulin mass ratioon 05-20-2022 Albumin/Globulin [Mass ratio] 1.1 {ratio} 0.9-2.4 [facility] Work Phone: Serum or plasma calcium ruth ann urement (mass/volume)on 05-20-2022 Calcium [Mass/Vol] 9.6 mg/dL 8.5-10.1 [facility] Work Phone: Serum or plasma cholesterol in HDL measurement (mass/volume)on 05-20-2022 Cholesterol in HDL [Mass/Vol] 39 mg/dL >40 [facility] Work Phone: Comment on above: The drugs N-Acetylcy steine and Metamizole may falsely depress this assay. Reference Range HDL <40 mg/dL Low HDL Cholesterol HDL >or= 60 mg/dL High HDL Cholesterol Serum or plasma cholesterol in VLDL measurement (mass/volume)on 05-20-2022 Cholesterol in VLDL [Mass/Vol] 20 mg/dL 5-40 [facility] Work Phone: Serum or plasma creatinine m easurement (mass/volume)on 05-20-2022 Creatinine [Mass/Vol] 0.96 mg/dL 0.70-1.30 [facility] Work Phone: Comment on above: The validity of the calculated GFR & GFRAA in patients over 70 years has not been determined. Clinical correlation is essential. Serum or plasma low density lipoprotein (LDL) cholesterol measurement (mass/volume)on 05-20-2022 Cholesterol in LDL [Mass/Vol] 115 mg/dL 0-130 [facility] Work Phone: Serum or plasma urea nitroge n measurement (mass/volume)on 05-20-2022 Urea nitrogen [Mass/Vol] 20 mg/dL 7-18 [facility] Work Phone: Thin prep Papanicolaou smear with manual screeningon 05-20-2022 Thin prep Papanicolaou smear with manual screening 21 U/L 15-37 [facility] Work Phone: Thin prep Papanicolaou smear with manual screening 6 5-15 [facility] Work Phone: Whole blood hemoglobin A1c/t otal hemoglobin ratio (mass fraction)on 05-20-2022 HbA1c (Bld) [Mass fraction] 5.3 % 3.8-5.6 [facility] Work Phone: Comment on above: Normal < 5.7 % Predi abetic 5.7 - 6.4 % Diabetic >or= 6.5 % Please note range changes. Absolute lymphocyte counton 01-23-2022 Lymphocytes Auto (Unsp spec) [#/Vol] 1.37 10*3/uL 0.83-4.51 [facility] Work Phone: Basophil percentageon 2021 Basophils/100 WBC (Bld) 0.9 % 0-1 [facility] Work Phone: Bilirubin [Mass/Vol] 0.60 mg/dL 0.20-1.00 [facility] Work Phone: Comment on above: For patients on eltr ombopag therapy, use of Dimension [place] TBIL is not recommended. Chloride [Moles/Vol] 108 mmol/L 98-107 [facility] Work Phone: Cholesterol [Mass/Vol] 167 mg/dL <200 [facility] Work Phone: Comment on above: <200 mg/dL Desirable 200-240 mg/dL Borderline >240 mg/dL High Risk Eosinophils/100 WBC (Bld) 5.9 % 0-5 [facility] Work Phone: Glucose [Mass/Vol] 115 mg/dL 74-106 [facility] Work Phone: Comment on above: Fasting Glucose resu lt from 100 to 125 mg/dL suggests IMPAIRED HOMEOSTASIS per A.D.A. criteria. Neutrophils (Bld) [#/Vol] 4.3 10*3/uL 2.0-7.7 [facility] Work Phone: Neutrophils/100 WBC (Bld) 63.1 % 47-70 [facility] Work Phone: Potassium [Moles/Vol] 4.2 mmol/L 3.5-5.1 [facility] Work Phone: Protein [Mass/Vol] 6.8 g/dL 6.4-8.2 [facility] Work Phone: Sodium [Moles/Vol] 137 mmol/L 136-145 [facility] Work Phone: Triglyceride [Mass/Vol] 70 mg/dL [facility] Work Phone: Comment on above: The drugs N-Acetylcy steine and Metamizole may falsely depress this assay.Serum Triglycerides Reference Interval Normal <150 mg/dL Borderline high 150 - 199 mg/dL High 200 - 499 mg/dL Very High > or = 500 mg/dL WBC (Bld) [#/Vol] 6.8 10*3/uL 4.4-11.0 [facility] Work Phone: Blood erythrocytes count (nu mber/volume)on 01-23-2022 RBC (Bld) [#/Vol] 4.54 10*6/uL 4.6-6.2 [facility] Work Phone: Blood hemoglobin measurement (mass/volume)on 01-23-2022 Hemoglobin (Bld) [Mass/Vol] 14.1 g/dL 13.0-16.5 [facility] Work Phone: Blood lymphocytes/100 leukoc yteson 01-23-2022 Lymphocytes/100 WBC (Bld) 20.1 % 19-41 [facility] Work Phone: Blood monocytes/100 leukocyt eson 01-23-2022 Monocytes/100 WBC (Bld) 9.7 % 0-10 [facility] Work Phone: Blood platelet mean volumeon 01-23-2022 Platelet mean volume (Bld) [Entitic vol] 9.6 fL 6.2-12.0 [facility] Work Phone: Determination of erythrocyte mean corpuscular volume (MCV)on 01-23-2022 MCV (RBC) [Entitic vol] 95.6 fL 80-94 [facility] Work Phone: Hematocrit Auto (Bld) [Volum e fraction]on 01-23-2022 Hematocrit (Bld) [Volume fraction] 43.4 % 40-54 [facility] Work Phone: Laboratory - Chemistry and C hemistry - challengeon 01-23-2022 ALP [Catalytic activity/Vol] 82 U/L 45-117 [facility] Work Phone: ALT [Catalytic activity/Vol] 34 U/L 16-61 [facility] Work Phone: CO2 [Moles/Vol] 26.0 mmol/L 21.0-32.0 [facility] Work Phone: Globulin (S) [Mass/Vol] 3.0 g/dL 2.2-4.2 [facility] Work Phone: Urea nitrogen/Creatinine [Mass ratio] 24.0 mg/mg 10-20 [facility] Work Phone: Laboratory - Hematology and Cell countson 01-23-2022 Erythrocyte distribution width (RBC) [Entitic vol] 45.7 fL 35.1-43.9 [facility] Work Phone: Erythrocyte distribution width (RBC) [Ratio] 13.0 % 11.6-14.6 [facility] Work Phone: Immature granulocytes/100 WBC (Bld) 0.300 % 0.0-0.9 [facility] Work Phone: Comment on above: IG% - Immature Granu locytes (promyelocytes, myelocytes and metamyelocytes) > 1% indicates that a LEFT SHIFT is Present. MCH (RBC) [Entitic mass] 31.1 pg 27.0-32.0 [facility] Work Phone: Nucleated RBC/100 WBC (Bld) [Ratio] 0 % 0-5 [facility] Work Phone: MCHC Auto (RBC) [Mass/Vol]on 01-23-2022 MCHC (RBC) [Mass/Vol] 32.5 g/dL 32-36 [facility] Work Phone: No Panel Informationon 01-23 Estimated GFR (MDRD) Amer 128 mL/min >60 [facility] Work Phone: Comment on above: GFR Calc Estimated GFR (MDRD) Non-Af Amer 106 mL/min >60 [facility] Work Phone: Comment on above: Non- GFR Calc Thyroid Stimulating Hormone (TSH) 1.44 uIU/mL 0.358-3.74 [facility] Work Phone: Platelets bldon 01-23-2022 Platelets (Bld) [#/Vol] 237 10*3/uL 150-450 [facility] Work Phone: Serum or plasma albumin ruth ann urement (mass/volume)on 01-23-2022 Albumin [Mass/Vol] 3.8 g/dL 3.2-5.0 [facility] Work Phone: Serum or plasma albumin/glob ulin mass ratioon 01-23-2022 Albumin/Globulin [Mass ratio] 1.3 {ratio} 0.9-2.4 [facility] Work Phone: Serum or plasma calcium ruth ann urement (mass/volume)on 01-23-2022 Calcium [Mass/Vol] 9.4 mg/dL 8.5-10.1 [facility] Work Phone: Serum or plasma cholesterol in HDL measurement (mass/volume)on 01-23-2022 Cholesterol in HDL [Mass/Vol] 40 mg/dL [facility] Work Phone: Comment on above: The drugs N-Acetylcy steine and Metamizole may falsely depress this assay. Reference Range HDL <40 mg/dL Low HDL Cholesterol HDL >or= 60 mg/dL High HDL Cholesterol Serum or plasma cholesterol in VLDL measurement (mass/volume)on 01-23-2022 Cholesterol in VLDL [Mass/Vol] 14 mg/dL 5-40 [facility] Work Phone: Serum or plasma creatinine m easurement (mass/volume)on 01-23-2022 Creatinine [Mass/Vol] 0.79 mg/dL 0.70-1.30 [facility] Work Phone: Comment on above: The validity of the calculated GFR & GFRAA in patients over 70 years has not been determined. Clinical correlation is essential. Serum or plasma low density lipoprotein (LDL) cholesterol measurement (mass/volume)on 01-23-2022 Cholesterol in LDL [Mass/Vol] 113 mg/dL 0-130 [facility] Work Phone: Serum or plasma urea nitroge n measurement (mass/volume)on 01-23-2022 Urea nitrogen [Mass/Vol] 19 mg/dL 7-18 [facility] Work Phone: Thin prep Papanicolaou smear with manual screeningon 01-23-2022 Thin prep Papanicolaou smear with manual screening 20 U/L 15-37 [facility] Work Phone: Thin prep Papanicolaou smear with manual screening 3 5-15 [facility] Work Phone: Whole blood hemoglobin A1c/t otal hemoglobin ratio (mass fraction)on 01-23-2022 HbA1c (Bld) [Mass fraction] 5.3 % 3.8-5.6 [facility] Work Phone: Comment on above: Normal < 5.7 % Predi abetic 5.7 - 6.4 % Diabetic >or= 6.5 % Please note range changes. Absolute lymphocyte counton 10-25-2021 Lymphocytes Auto (Unsp spec) [#/Vol] 1.64 10*3/uL 0.83-4.51 [facility] Work Phone: Basophil percentageon 2021 Basophil percentage 0 SEEN /hpf [facility] Work Phone: Basophils/100 WBC (Bld) 0.6 % 0-1 [facility] Work Phone: Bilirubin [Mass/Vol] 0.70 mg/dL 0.20-1.00 [facility] Work Phone: Comment on above: For patients on eltr ombopag therapy, use of Dimension [place] TBIL is not recommended. Chloride [Moles/Vol] 105 mmol/L 98-107 [facility] Work Phone: Cholesterol [Mass/Vol] 177 mg/dL <200 [facility] Work Phone: Comment on above: <200 mg/dL Desirable 200-240 mg/dL Borderline >240 mg/dL High Risk Eosinophils/100 WBC (Bld) 4.5 % 0-5 [facility] Work Phone: Glucose [Mass/Vol] 110 mg/dL 74-106 [facility] Work Phone: Comment on above: Fasting Glucose resu lt from 100 to 125 mg/dL suggests IMPAIRED HOMEOSTASIS per A.D.A. criteria.Please note revised GLUCOSE reference range effective 2017. Neutrophils (Bld) [#/Vol] 5.1 10*3/uL 2.0-7.7 [facility] Work Phone: Neutrophils/100 WBC (Bld) 63.3 % 47-70 [facility] Work Phone: Potassium [Moles/Vol] 4.4 mmol/L 3.5-5.1 [facility] Work Phone: Protein [Mass/Vol] 7.1 g/dL 6.4-8.2 [facility] Work Phone: Sodium [Moles/Vol] 138 mmol/L 136-145 [facility] Work Phone: Triglyceride [Mass/Vol] 112 mg/dL [facility] Work Phone: Comment on above: The drugs N-Acetylcy steine and Metamizole may falsely depress this assay.Serum Triglycerides Reference Interval Normal <150 mg/dL Borderline high 150 - 199 mg/dL High 200 - 499 mg/dL Very High > or = 500 mg/dL WBC (Bld) [#/Vol] 8.1 10*3/uL 4.4-11.0 [facility] Work Phone: Bilirubin Test strip Ql (U)o n 10-25-2021 Bilirubin Ql (U) Negative Negative [facility] Work Phone: Blood erythrocytes count (nu mber/volume)on 10-25-2021 RBC (Bld) [#/Vol] 4.73 10*6/uL 4.6-6.2 [facility] Work Phone: Blood hemoglobin measurement (mass/volume)on 10-25-2021 Hemoglobin (Bld) [Mass/Vol] 14.3 g/dL 13.0-16.5 [facility] Work Phone: Blood lymphocytes/100 leukoc yteson 10-25-2021 Lymphocytes/100 WBC (Bld) 20.3 % 19-41 [facility] Work Phone: Blood monocytes/100 leukocyt eson 10-25-2021 Monocytes/100 WBC (Bld) 10.8 % 0-10 [facility] Work Phone: Blood platelet mean volumeon 10-25-2021 Platelet mean volume (Bld) [Entitic vol] 9.4 fL 6.2-12.0 [facility] Work Phone: Determination of erythrocyte mean corpuscular volume (MCV)on 10-25-2021 MCV (RBC) [Entitic vol] 94.3 fL 80-94 [facility] Work Phone: Hematocrit Auto (Bld) [Volum e fraction]on 10-25-2021 Hematocrit (Bld) [Volume fraction] 44.6 % 40-54 [facility] Work Phone: Ketones Test strip Ql (U)on 10-25-2021 Ketones Ql (U) Negative Negative [facility] Work Phone: Laboratory - Chemistry and C hemistry - challengeon 10-25-2021 ALP [Catalytic activity/Vol] 95 U/L 45-117 [facility] Work Phone: ALT [Catalytic activity/Vol] 34 U/L 16-61 [facility] Work Phone: CO2 [Moles/Vol] 27.0 mmol/L 21.0-32.0 [facility] Work Phone: Globulin (S) [Mass/Vol] 3.3 g/dL 2.2-4.2 [facility] Work Phone: Urea nitrogen/Creatinine [Mass ratio] 22.1 mg/mg 10-20 [facility] Work Phone: Laboratory - Hematology and Cell countson 10-25-2021 Erythrocyte distribution width (RBC) [Entitic vol] 44.9 fL 35.1-43.9 [facility] Work Phone: Erythrocyte distribution width (RBC) [Ratio] 12.9 % 11.6-14.6 [facility] Work Phone: Immature granulocytes/100 WBC (Bld) 0.500 % 0.0-0.9 [facility] Work Phone: Comment on above: IG% - Immature Granu locytes (promyelocytes, myelocytes and metamyelocytes) > 1% indicates that a LEFT SHIFT is Present. MCH (RBC) [Entitic mass] 30.2 pg 27.0-32.0 [facility] Work Phone: Nucleated RBC/100 WBC (Bld) [Ratio] 0 % 0-5 [facility] Work Phone: MCHC Auto (RBC) [Mass/Vol]on 10-25-2021 MCHC (RBC) [Mass/Vol] 32.1 g/dL 32-36 [facility] Work Phone: Mucus LM Ql (Urine sed)on Mucus Ql (Urine sed) 0 SEEN /hpf [facility] Work Phone: Nitrite Test strip Ql (U)on 10-25-2021 Nitrite Ql (U) Negative Negative [facility] Work Phone: No Panel Informationon 10-25 Estimated GFR (MDRD) Amer 104 mL/min >60 [facility] Work Phone: Comment on above: GFR Calc Estimated GFR (MDRD) Non-Af Amer 86 mL/min >60 [facility] Work Phone: Comment on above: Non- GFR Calc Vitamin D 25-Hydroxy 39.1 ng/mL [facility] Work Phone: Comment on above: Vitamin D 25(OH) Sta tus Range Deficiency <20 ng/mL (50nmol/L) Insufficiency 20 - 30 ng/mL (50 - 75 nmol/L) Sufficiency 30 - 100 ng/mL (75 - 250 nmol/L) Toxicity >100 ng/mL (>250 nmol/L) Platelets bldon 10-25-2021 Platelets (Bld) [#/Vol] 285 10*3/uL 150-450 [facility] Work Phone: Protein Test strip Ql (U)on 10-25-2021 Protein Ql (U) Negative Negative [facility] Work Phone: Serum or plasma albumin ruth ann urement (mass/volume)on 10-25-2021 Albumin [Mass/Vol] 3.8 g/dL 3.2-5.0 [facility] Work Phone: Serum or plasma albumin/glob ulin mass ratioon 10-25-2021 Albumin/Globulin [Mass ratio] 1.2 {ratio} 0.9-2.4 [facility] Work Phone: Serum or plasma calcium ruth ann urement (mass/volume)on 10-25-2021 Calcium [Mass/Vol] 10.0 mg/dL 8.5-10.1 [facility] Work Phone: Serum or plasma cholesterol in HDL measurement (mass/volume)on 10-25-2021 Cholesterol in HDL [Mass/Vol] 38 mg/dL [facility] Work Phone: Comment on above: The drugs N-Acetylcy steine and Metamizole may falsely depress this assay. Reference Range HDL <40 mg/dL Low HDL Cholesterol HDL >or= 60 mg/dL High HDL Cholesterol Serum or plasma cholesterol in VLDL measurement (mass/volume)on 10-25-2021 Cholesterol in VLDL [Mass/Vol] 22 mg/dL 5-40 [facility] Work Phone: Serum or plasma creatinine m easurement (mass/volume)on 10-25-2021 Creatinine [Mass/Vol] 0.95 mg/dL 0.70-1.30 [facility] Work Phone: Comment on above: The validity of the calculated GFR & GFRAA in patients over 70 years has not been determined. Clinical correlation is essential. Serum or plasma low density lipoprotein (LDL) cholesterol measurement (mass/volume)on 10-25-2021 Cholesterol in LDL [Mass/Vol] 117 mg/dL 0-130 [facility] Work Phone: Serum or plasma urea nitroge n measurement (mass/volume)on 10-25-2021 Urea nitrogen [Mass/Vol] 21 mg/dL 7-18 [facility] Work Phone: Squamous epithelial cells de tection in urine sediment by light microscopyon 10-25-2021 Epithelial cells.squamous LM Ql (Urine sed) 0-5 SEEN /hpf [facility] Work Phone: Thin prep Papanicolaou smear with manual screeningon 10-25-2021 Thin prep Papanicolaou smear with manual screening 18 U/L 15-37 [facility] Work Phone: Thin prep Papanicolaou smear with manual screening 6 5-15 [facility] Work Phone: Urine blood detectionon RBC Ql (U) Negative Negative [facility] Work Phone: RBC Ql (U) 0 SEEN /hpf [facility] Work Phone: Urine clarityon 10-25-2021 Clarity (U) Clear Clear [facility] Work Phone: Urine color determinationon 10-25-2021 Color (U) Yellow Yellow [facility] Work Phone: Urine glucose detectionon Glucose Ql (U) Normal mg/dl Normal [facility] Work Phone: Urine leukocyte esterase det ection by dipstickon 10-25-2021 Leukocyte esterase Test strip Ql (U) Negative Negative [facility] Work Phone: Urine pHon 10-25-2021 pH (U) 6.0 [pH] [facility] Work Phone: Urine sediment bacteria coun t by microscopy (number/high power field)on 10-25-2021 Bacteria LM.HPF (Urine sed) [#/Area] 0 /[HPF] None Seen [facility] Work Phone: Urine specific gravity measu rementon 10-25-2021 Specific gravity (U) [Rel density] 1.020 [facility] Work Phone: Urobilinogen Auto test strip Ql (U)on 10-25-2021 Urobilinogen Ql (U) Normal mg/dl Normal [facility] Work Phone: Whole blood hemoglobin A1c/t otal hemoglobin ratio (mass fraction)on 10-25-2021 HbA1c (Bld) [Mass fraction] 5.3 % 3.8-5.6 [facility] Work Phone: Comment on above: Normal < 5.7 % Predi abetic 5.7 - 6.4 % Diabetic >or= 6.5 % Please note range changes. Final Surgical Pathology Rep [facility] 04-17-2020 Final Surgical Pathology Report . Pathology Reports Accession: Collected Date/Time: Received Date/Time: Pathologist: [id number] 04/16/2020 10:18 EDT 04/16/2020 14:21 MD ENRIQUE PETTIT Final Surgical Pathology Report DIAGNOSIS: MID ASCENDING COLON, POLYPECTOMY - - TUBULAR ADENOMA. COMMENT: [facility] - [id number] CLINICAL INFORMATION: Procedure: COLONOSCOPY WITH POLYPECTOMIES Preoperative diagnosis: HISTORY OF COLON POLYPS Postoperative diagnosis: SAME SPECIMEN: MID-ASCENDING COLON POLYPS GROSS DESCRIPTION: Received in formalin, labeled with the patient's name, Case #[id number], and mid ascending colon polyps 2 levin polyps measuring 0.4 and 0.5 cm. TS -1. Dictated by MIRELLA PENDLETON MICROSCOPIC DESCRIPTION: Slides reviewed. Electronically Signed by Pathology Report verified by [facility] Electronically signed by ENRIQUE MOORE MD Sign out Date: 04/17/2020 16:10 Performing Lab: [facility], [address] [place] [address] ([place]) Comment on above: Performed By: #### S PFR #### [place] [id number] Vital Signs Date Time Vital Sign Value Performing Clinician Ceci kelley 02-01-2025 09:12-0400 Body height 182.9 cm Pacc 1 Work Phone: [facility] 02-01-2025 09:12-0400 Body mass index (BMI) [Ratio] 34.18 kg/m2 Pacc 1 Work Phone: [facility] 02-01-2025 09:12-0400 Body temperature 97.2 [degF] Pacc 1 Work Phone: [facility] 02-01-2025 09:12-0400 Body weight 114.31 kg Pacc 1 Work Phone: [facility] 02-01-2025 09:12-0400 Diastolic blood pressure 90 mm[Hg] Pacc 1 Work Phone: [facility] 02-01-2025 09:12-0400 Heart rate 70 /min Pacc 1 Work Phone: [facility] 02-01-2025 09:12-0400 Respiratory rate 14 /min Pacc 1 Work Phone: [facility] 02-01-2025 09:12-0400 SaO2% (BldA) [Mass fraction] 96 % Pacc 1 Work Phone: [facility] 02-01-2025 09:12-0400 Systolic blood pressure 132 mm[Hg] Pacc 1 Work Phone: [facility] 01-06-2025 08:52-0400 Body weight 112.95 kg Dana Efra NOTCH MACHINE OPERATOR.EKG/ECG TECHNICIAN Work Phone: [facility] 01-06-2025 08:52-0400 Diastolic blood pressure 80 mm[Hg] Dana Efra NOTCH MACHINE OPERATOR.EKG/ECG TECHNICIAN Work Phone: [facility] 01-06-2025 08:52-0400 Heart rate 68 /min Dana Efra NOTCH MACHINE OPERATOR.EKG/ECG TECHNICIAN Work Phone: [facility] 01-06-2025 08:52-0400 SaO2% (BldA) [Mass fraction] 97 % Dana Efra NOTCH MACHINE OPERATOR.EKG/ECG TECHNICIAN Work Phone: [facility] 01-06-2025 08:52-0400 Systolic blood pressure 154 mm[Hg] Dana Efra NOTCH MACHINE OPERATOR.EKG/ECG TECHNICIAN Work Phone: [facility] 07-08-2024 13:59-0400 Body weight 104.87 kg Kendell Gambino Jr., MD Work Phone: [facility] 07-08-2024 13:59-0400 Diastolic blood pressure 78 mm[Hg] Kendell Gambino Jr., MD Work Phone: [facility] 07-08-2024 13:59-0400 Heart rate 70 /min Kendell Gambino Jr., MD Work Phone: [facility] 07-08-2024 13:59-0400 SaO2% (BldA) [Mass fraction] 100 % Kendell Gambino Jr., MD Work Phone: [facility] 07-08-2024 13:59-0400 Systolic blood pressure 128 mm[Hg] Kendell Gambino Jr., MD Work Phone: [facility] 03-07-2024 15:29-0400 Body weight 108.86 kg Dana Efra NOTCH MACHINE OPERATOR.EKG/ECG TECHNICIAN Work Phone: [facility] 03-07-2024 15:29-0400 Diastolic blood pressure 66 mm[Hg] Dana Efra NOTCH MACHINE OPERATOR.EKG/ECG TECHNICIAN Work Phone: [facility] 03-07-2024 15:29-0400 Heart rate 81 /min Dana Efra NOTCH MACHINE OPERATOR.EKG/ECG TECHNICIAN Work Phone: [facility] 03-07-2024 15:29-0400 Respiratory rate 16 /min Dana Efra NOTCH MACHINE OPERATOR.EKG/ECG TECHNICIAN Work Phone: [facility] 03-07-2024 15:29-0400 SaO2% (BldA) [Mass fraction] 94 % Dana Efra NOTCH MACHINE OPERATOR.EKG/ECG TECHNICIAN Work Phone: [facility] 03-07-2024 15:29-0400 Systolic blood pressure 118 mm[Hg] Dana Efra NOTCH MACHINE OPERATOR.EKG/ECG TECHNICIAN Work Phone: [facility] 02-19-2023 13:42-0400 Body temperature 97.81 [degF] Rachelle Dahlhausen NOTCH MACHINE OPERATOR.EKG/ECG TECHNICIAN Work Phone: [facility] 02-19-2023 13:42-0400 Body weight 107.14 kg Rachelle Dahlhausen NOTCH MACHINE OPERATOR.EKG/ECG TECHNICIAN Work Phone: [facility] 02-19-2023 13:42-0400 Diastolic blood pressure 74 mm[Hg] Rachelle Dahlhausen NOTCH MACHINE OPERATOR.EKG/ECG TECHNICIAN Work Phone: [facility] 02-19-2023 13:42-0400 Heart rate 81 /min Rachelle Dahlhausen NOTCH MACHINE OPERATOR.EKG/ECG TECHNICIAN Work Phone: [facility] 02-19-2023 13:42-0400 Respiratory rate 16 /min Rachelle Dahlhausen NOTCH MACHINE OPERATOR.EKG/ECG TECHNICIAN Work Phone: [facility] 02-19-2023 13:42-0400 SaO2% (BldA) [Mass fraction] 94 % Rachelle Dahlhausen NOTCH MACHINE OPERATOR.EKG/ECG TECHNICIAN Work Phone: [facility] 02-19-2023 13:42-0400 Systolic blood pressure 153 mm[Hg] Rachelle Dahlhausen NOTCH MACHINE OPERATOR.EKG/ECG TECHNICIAN Work Phone: [facility] 06-02-2022 15:50-0400 Body temperature 97.7 [degF] Kendell Gambino Jr., MD Work Phone: [facility] 06-02-2022 15:50-0400 Body weight 102.15 kg Kendell Gambino Jr., MD Work Phone: [facility] 06-02-2022 15:50-0400 Diastolic blood pressure 88 mm[Hg] Kendell Gambino Jr., MD Work Phone: [facility] 06-02-2022 15:50-0400 Heart rate 64 /min Kendell Gambino Jr., MD Work Phone: [facility] 06-02-2022 15:50-0400 Respiratory rate 20 /min Kendell Gambino Jr., MD Work Phone: [facility] 06-02-2022 15:50-0400 SaO2% (BldA) [Mass fraction] 96 % Kendell Gambino Jr., MD Work Phone: [facility] 06-02-2022 15:50-0400 Systolic blood pressure 144 mm[Hg] Kendell Gambino Jr., MD Work Phone: [facility] Encounters Encounter Date Encounter Type Care Provider Facility Start: 03-31-2025 ambulatory Kimani Gentile Facilit y:[facility] Start: 03-24-2025 End: 03-24-[address] Kimani Gentile MD -[place], [facility]ated [facility] Work Phone: Start: 03-24-2025 End: 03-24-2025 ambulatory Kimani Gentile Facility:[facility] Start: 03-14-2025 End: 03-14-2025 Patient encounter procedure Enrique Wrothy Work Phone: Podiatry Comment on above: Arthritis of left mi dfoot (Primary Dx) Start: 03-14-2025 End: 03-14-2025 ambulatory ENRIQUE WORTHY Facility:[facility] Start: 02-06-2025 End: 02-06-2025 ambulatory ENRIQUE TESTEDILIA Facility:[facility] Start: 02-01-2025 End: 02-01-[address] [facility] Work Phone: Pre [facility] Start: 02-01-2025 End: 02-01-2025 Anesthesia consultation [place] [id number] Work Phone: Pre Anesthesia Comment on above: Pre-op evaluation (P rimary Dx); RLS (restless legs syndrome); Essential hypertension; Gastroesophageal reflux disease, unspecified whether esophagitis present; Class 1 obesity without serious comorbidity with body mass index (BMI) of 34.0 to 34.9 in adult, unspecified obesity type Start: 02-01-2025 End: 02-01-2025 Preprocedural examination done [place] [id number] Work Phone: [facility] Start: 02-01-2025 End: 02-01-2025 ambulatory ENRIQUE SEHY Facility:[facility] Start: 02-01-2025 Encounter for other preprocedural examination ENRIQUE WORTHY [facility] Start: 01-27-2025 End: 01-27-2025 Subsequent hospital visit by physician Lynette [facility] Work Phone: Radiology Comment on above: Arthritis of left mi dfoot [M19.072] Start: 01-27-2025 End: 01-27-2025 ambulatory ENRIQUE WORTHY Facility:[facility] Start: 01-27-2025 End: 01-27-2025 Patient encounter procedure Enrique Worthy Work Phone: Podiatry Comment on above: Arthritis of left mi dfoot (Primary Dx); Pain in left foot Start: 01-06-2025 End: 01-06-2025 Telephone encounter Enrique Worthy Work Phone: Podiatry Start: 01-06-2025 End: 01-06-2025 Patient encounter procedure Dana Kraus APRN.EKG/ECG TECHNICIAN Work Phone: Neurology Comment on above: RLS (restless legs s yndrome) (Primary Dx); Delayed sleep phase syndrome; Chronic insomnia Start: 01-06-2025 End: 01-06-2025 ambulatory DANA KRAUS Facility:[facility] Start: 10-07-2024 End: 10-07-2024 ambulatory Kimani Gentile Facility:[facility] Start: 10-07-2024 End: 10-07-2024 ambulatory Mike FITZGERALD Facility:[facility] Start: 08-17-2024 End: 08-17-2024 Emergency department patient visit Sally Barraza Facility:[facility] Start: 08-03-2024 End: 08-03-2024 ambulatory Kimani Andrew Seferino Facility:[facility] Start: 07-08-2024 End: 07-08-2024 Patient encounter procedure Kendell Gambino MD Work Phone: Neurology Comment on above: RLS (restless legs s yndrome) (Primary Dx); Insomnia, unspecified type; Snoring Start: 07-08-2024 End: 07-08-2024 ambulatory KENDELL GAMBINO JR Facility:[facility] Start: 06-28-2024 End: 06-28-2024 ambulatory ENRIQUE WORTHY Facility:[facility] Start: 06-28-2024 End: 06-28-2024 Patient encounter procedure Enrique Worthy Work Phone: Podiatry Comment on above: Arthritis of both mi dfeet (Primary Dx) Start: 05-19-2024 End: 05-19-2024 ambulatory ENRIQUE WORTHY Facility:[facility] Start: 05-19-2024 End: 05-19-2024 Patient encounter procedure Enrique Worthy Work Phone: Podiatry Comment on above: Arthritis of both mi dfeet (Primary Dx) Start: 05-19-2024 ambulatory ENRIQUE WORTHY Facili ty:[facility] Start: 05-19-2024 End: 05-19-2024 Subsequent hospital visit by physician [facility] Work Phone: Radiology Comment on above: Canceled (Pt cx: Res cheduled) Pain [R52] Start: 03-07-2024 End: 03-07-2024 Patient encounter procedure Dana Kraus NOTCH MACHINE OPERATOR.EKG/ECG TECHNICIAN Work Phone: Neurology Comment on above: RLS (restless legs s yndrome) (Primary Dx); Vitamin D deficiency; Insomnia, unspecified type Start: 11-28-2023 Refill Rachelle stevenson NOTCH MACHINE OPERATOR.EKG/ECG TECHNICIAN Work Phone: Neurology Comment on above: Refill Request Start: 09-23-2023 Refill Rachelle stevenson NOTCH MACHINE OPERATOR.EKG/ECG TECHNICIAN Work Phone: Neurology Comment on above: Refill Request Start: 08-23-2023 Refill Kendell sanchez MD Work Phone: Neurology Comment on above: Refill Request Start: 08-03-2023 End: 08-03-2023 ambulatory [facility] Work Phone: Start: 08-03-2023 End: 08-03-2023 Patient encounter procedure [facility] Work Phone: Start: 02-19-2023 End: 02-19-2023 Patient encounter procedure Rachelle Hunter NOTCH MACHINE OPERATOR.EKG/ECG TECHNICIAN Work Phone: Neurology Comment on above: RLS (restless legs s yndrome) (Primary Dx); Neuropathy - (NOS) Start: 12-29-2022 Refill Kendell sanchez MD Work Phone: Neurology Comment on above: Refill Request Start: 12-18-2022 End: 12-18-2022 ambulatory [facility] Work Phone: Start: 12-18-2022 End: 12-18-2022 Patient encounter procedure [facility] Start: 11-18-2022 End: 11-18-2022 Patient encounter procedure [facility], [facility] Start: 09-05-2022 Refill Kendell sanchez MD Work Phone: Neurology Comment on above: Refill Request Start: 06-02-2022 End: 06-02-2022 Patient encounter procedure Kendell Gambino MD Work Phone: Neurology Comment on above: RLS (restless legs s yndrome) (Primary Dx); Neuropathy - (NOS) Start: 05-20-2022 End: 05-20-2022 Patient encounter procedure [facility] Start: 01-23-2022 End: 01-23-2022 Patient encounter procedure [facility] Start: 10-31-2021 End: 10-31-2021 Patient encounter procedure [facility] Start: 10-25-2021 End: 10-25-2021 [facility] Procedures Date Procedure Procedure Detail Performing Clinician Start: 03-24-2025 Urnls dip stick/tabl et reagent auto microscopy Dr. Kimani Gentile MD Work Phone: Start: 03-24-2025 Vitamin D, 25-hydrox y measurement Dr. Kimani Gentile MD Work Phone: Comment on above: Vitamin D StatusDefi ciency: <20 ng/mL (50nmol/L)Insufficiency: 20-30 ng/mL (50-75 nmol/L)Sufficiency: 30-100 ng/mL (75-250 nmol/L)Toxicity: >100 ng/mL (>250 nmol/L) Start: 03-24-2025 Plain x-ray of hand Dr. Kimani Gentile MD Work Phone: Start: 03-24-2025 X-ray of chest, PA a nd lateral views Dr. Kimani Gentile MD Work Phone: Start: 05-19-2024 Radex foot complete minimum 3 views Enrique Worthy Work Phone: Start: 12-18-2022 US scan of thyroid Start: 01-23-2022 Plain chest X-ray Start: 10-31-2021 Thyroid History of transuret hral prostatectomy Status post transurethral resection of prostate Plan of Treatment Date Care Activity Detail Author Start: 2036 RSV Vaccine (1 - 1-d ose 75+ series) RSV Vaccine (1 - 1-dose 75+ series) [facility] Start: 08-01-2027 Diabetes Screening Diabetes Screenin g [facility] Start: 11-04-2026 Diabetes Screening Diabetes Screenin paty [facility] Start: 11-07-2025 Urine microalbumin profile DTaP,Tdap,Td Vaccine (2 - Td or Tdap) [facility] Start: 07-14-2025 End: 07-14-2025 Patient encounter procedure 07/14/2025 9:00 AM EDT Office Visit Neurology [address] [place], [place] [id number] Kendell Gambino Jr., MD [address] [place], [place] [address] 6 month follow up Neurology Comment on above: 6 month follow up Start: 06-02-2025 DIABETES SCREEN DIABETES SCREEN [facility] Start: 06-02-2025 Diabetes Screening Diabetes Screenbeatrice newman [facility] Start: 03-10-2025 End: 03-10-2025 Patient encounter procedure 03/10/2025 9:30 AM EDT Office Visit Podiatry [address] [place], [place] [id number] Enrique Worthy [address] [place], [place] [id number] 1 month follow up injection Podiatry Comment on above: 1 month follow up in jejuan Start: 02-06-2025 End: 02-06-2025 Admission to same day surgery center 02/06/2025 9:35 AM EDT - 02/06/2025 10:50 AM EDT Surgery [facility] [address] [place] [id number] Enrique Worthy [address] [place] [address] INJECT ANKLE [facility] Comment on above: INJECT ANKLE Start: 02-06-2025 End: 02-06-2025 Arthrocentesis aspir&/inj interm jt/burs w/o us INJECT ANKLE Arthritis of left midfoot 02/06/2025 9:35 AM EDT [facility] OR Start: 02-06-2025 Subsequent hospital visit by physician 02/06/2025 9:35 AM EDT Hospital Encounter [facility] [address] [place] [address] Enrique Worthy [address] [place] [address] Arthritis of left midfoot [M19.072] [facility] Comment on above: Arthritis of left mi dfoot [M19.072] Start: 02-01-2025 End: 02-01-2025 Anesthesia consultation 02/01/2025 9:20 AM EDT PAT Pre Anesthesia [address] [place] [address] 1, Pacc Matthew [address] [place] [address] DECLINED VV INJECT ANKLE [6690] - Left 02/06 Pre Anesthesia Comment on above: DECLINED VV INJECT A NKLE [6690] - Left 02/06 Start: 01-06-2025 End: 01-06-2025 Patient encounter procedure 01/06/2025 3:20 PM EDT Office Visit Neurology [address] [place] [address] Kendell Gambino Jr., MD [address] [address] 4 month follow up, RLS & Insomnia Neurology Comment on above: 4 month follow up, R LS & Insomnia Start: 07-08-2024 End: 07-08-2024 Patient encounter procedure Neurology Comment on above: 4 month follow up 4 month follow up, R LS & Insomnia Start: 06-28-2024 End: 06-28-2024 Patient encounter procedure 06/28/2024 2:45 PM EDT Office Visit Podiatry [address] [place] [address] Enrique Worthy [address] [facility] [place], [place] [id number] Satnam foot pain, left looks like a band is around it and swelling, satnam toe stiffness Podiatry Comment on above: Satnam foot pain, left looks like a band is around it and swelling, satnam toe stiffness Start: 06-19-2024 Covid-19 Vaccine ( season) Covid-19 Vaccine () [facility] Start: 06-19-2024 Covid-19 Vaccine () Covid-19 Vaccine () [facility] Start: 06-19-2024 Influenza vaccination [facility] Start: 10-19-2023 Behavioral Health Screening Behavioral Health Screening [facility] Start: 10-19-2023 Depression Assessment Depression Ass essment [facility] Start: 09-24-2023 End: 12-24-2023 CBC W Auto Differential panel - Blood CBC + DIFF Lab Routine RLS (restless legs syndrome) Expected: 09/24/2023, Expires: 12/24/2023 [facility] Work Phone: Comment on above: Expected: 09/24/2023 , Expires: 12/24/2023 Start: 09-24-2023 End: 12-24-2023 Comprehensive metabolic 2000 panel - Serum or Plasma COMP METABOLIC PANEL Lab Routine RLS (restless legs syndrome) Expected: 09/24/2023, Expires: 12/24/2023 [facility] Work Phone: Comment on above: Expected: 09/24/2023 , Expires: 12/24/2023 Start: 06-19-2023 Covid-19 Vaccine ( season) Covid-19 Vaccine () [facility] Start: 06-19-2023 Influenza vaccination Influenza Vacc ine (#1) [facility] Start: 10-19-2022 DEPRESSION ASSESSMENT DEPRESSION ASS ESSMENT [facility] Start: 06-19-2022 Influenza vaccination INFLUENZA (#1) [facility] Start: 06-02-2022 End: 08-02-2022 Cobalamin (Vitamin B12) [Mass/volume] in Serum or Plasma [facility] Work Phone: Comment on above: Expected: 06/02/2022 , Expires: 08/02/2022 Start: 06-02-2022 End: 08-02-2022 Ferritin [Mass/volume] in Serum or Plasma [facility] Work Phone: Comment on above: Expected: 06/02/2022 , Expires: 08/02/2022 Start: 06-02-2022 End: 08-02-2022 Hemoglobin A1c in Blood [facility] Work Phone: Comment on above: Expected: 06/02/2022 , Expires: 08/02/2022 Start: 06-02-2022 End: 08-02-2022 Iron and Iron binding capacity panel - Serum or Plasma [facility] Work Phone: Comment on above: Expected: 06/02/2022 , Expires: 08/02/2022 Start: 06-02-2022 End: 08-02-2022 PROTEIN ELECTROPHORESIS SERUM W/INTERP [facility] Work Phone: Comment on above: Expected: 06/02/2022 , Expires: 08/02/2022 Start: 06-02-2022 End: 08-02-2022 Thyrotropin [Units/volume] in Serum or Plasma [facility] Work Phone: Comment on above: Expected: 06/02/2022 , Expires: 08/02/2022 Start: 06-02-2022 End: 08-02-2022 Thyroxine (T4) free [Mass/volume] in Serum or Plasma [facility] Work Phone: Comment on above: Expected: 06/02/2022 , Expires: 08/02/2022 Start: 02-12-2022 COVID-19 VACCINE (4 - Booster for Moderna series) COVID-19 VACCINE (4 - Booster for Moderna series) [facility] Start: 12-09-2021 COVID-19 VACCINE (4 - Booster for Moderna series) COVID-19 VACCINE (4 - Booster for Moderna series) [facility] Start: 10-19-2021 DEPRESSION ASSESSMENT DEPRESSION ASS ESSMENT [facility] Start: 2021 RSV Vaccine (1 - 1-d ose 60+ series) RSV Vaccine (1 - 1-dose 60+ series) [facility] Start: 2021 RSV Vaccine (1 - Ris k 60-74 years 1-dose series) RSV Vaccine (1 - Risk 60-74 years 1-dose series) [facility] Start: 2016 PROSTATE CANCER SCRE ENING DISCUSSION PROSTATE CANCER SCREENING DISCUSSION [facility] Start: 2016 Prostate specific an tigen measurement Prostate Cancer Screening Discussion [facility] Start: 2011 Pneumococcal Vaccine : 50+ (1 of 1 - PCV) Pneumococcal Vaccine: 50+ (1 of 1 - PCV) [facility] Start: 2011 SHINGRIX VACCINE (1 of 2) BAH GRIX VACCINE (1 of 2) [facility] Start: 2006 COLOGUARD (FIT-DNA) COLOGUARD (FIT-D NA) [facility] Start: 2006 Colonoscopy COLONOSCOPY [facility] Start: 2006 COLORECTAL CANCER SCREENING COLORECTAL CANCER SCREENING [facility] Start: [address] COLONOGRAPHY [facility] Start: 2006 DIABETES SCREEN DIABETES SCREEN [facility] Start: 2006 FECAL OCCULT BLOOD FECAL OCCULT BLOO D [facility] Start: 2006 Prostate specific an tigen measurement Prostate Cancer Screening Discussion [facility] Start: 2006 Screening for malign ant neoplasm of colon [facility] Start: 2006 SIGMOIDOSCOPY SIGMOIDOSCOPY [facility] Start: 1996 Lipid 1996 panel - S yoli or Plasma Lipid Screening [facility] Start: 1996 Lipid panel Lipid Screening [facility] Start: 1996 LIPID SCREEN LIPID SCREEN [facility] Start: 1980 Urine microalbumin profile DTAP,TDAP,TD (1 - Tdap) [facility] Start: 1979 Annual PCP Team Material Attendant asim Disease Visit Annual PCP Team Chronic Disease Visit [facility] Start: 1979 Anxiety Screening Anxiety Screening [facility] Start: 1979 BP Controlled (<130/80) BP Controlle d (<130/80) [facility] Start: 1979 Depression Screening Depression Scre ening [facility] Start: 1979 HEPATITIS C SCREENING HEPATITIS C [facility] Start: 1979 Hepatitis C screening Hepatitis C [facility] Start: 1979 HIV SCREENING HIV SCREENING [facility] Start: 1979 HIV screening HIV Screening [facility] Start: 1973 Adult depression screening assessment DEPRESSION SCREENING [facility] End: 02-26-2026 XR Foot - bilateral AP and Lateral and oblique XR FOOT GENERAL 3V AP/LAT/OBL BILATERAL Radiology Routine Arthritis of left midfoot 1 Occurrences starting 01/27/2025 until 02/26/2026 [facility] Work Phone: Comment on above: 1 Occurrences starti ng 01/27/2025 until 02/26/2026 XR Foot - bilateral AP and Lateral and oblique XR FOOT GENERAL 3V AP/LAT/OBL BILATERAL Radiology Routine Arthritis of left midfoot 01/27/2025 10:26 AM EDT [facility] Immunizations Immunization Date Immunization Notes Care Provider Sherlyn frias 08-22-2022 influenza, injectabl e, quadrivalent, preservative free [facility] 08-22-2022 influenza virus vaccine, unspecified formulation Kendell Gambino Jr., MD Work Phone: [facility] 10-14-2021 Covid (Moderna) [facility] 02-01-2021 Covid ([facility] 01-04-2021 Covid ([facility] 11-07-2015 tetanus toxoid, redu aly diphtheria toxoid, and acellular pertussis vaccine, adsorbed [facility] Payers Date Payer Category Payer Self-pay [id number] 2021 [employer] Blue [employer] [id number] 2021 Unknown [id number] 2020 Unknown [id number] Unknown [id number] Unknown [id number] Unknown [facility] [id number] Unknown [id number] [id number] [id number] Unknown [id number] [id number] Unknown [id number] [id number] [id number] Unknown [id number] [id number] Unknown [id number] [id number] Unknown [id number] [id number] Social History Date Type Detail Facility Start: 01-12-2020 End: 03-11-2023 Tobacco smoking status [facility] Unknown if ever smoked [facility] Start: 1960 Sex Assigned At Male [facility] Start: 06-02-2022 End: 08-17-2024 Tobacco smoking status TXIS Ex-smoker [facility] History of tobacco use Current smoker [facility] History of tobacco use Cigarette Smoker [facility] Start: 06-02-2022 End: 02-19-2023 Cigarettes smoked current (pack per day) - Reported 1 [facility] Start: 06-02-2022 End: 03-07-2024 Alcohol intake Current non-drinker of alcohol (finding) [facility] Start: 06-02-2022 Tobacco Comment one pack per day [facility] Start: 1960 Sex Assigned At Not on file [facility] Start: 05-23-2022 End: 06-02-2022 Exposure to SARS-CoV-2 (event) Not sure [facility] Start: 02-19-2023 End: 08-25-2023 Tobacco use panel [facility] National Score (1-10 0), lower number is lower risk 70 [facility] Start: 05-19-2024 End: 03-14-2025 Alcohol intake Current drinker of alcohol (finding) [facility] Start: 05-19-2024 Alcohol Comment rare [facility] Start: 02-01-2025 Tobacco use and exposure Smokeless tobacco non-user [facility] Start: 02-01-2025 Tobacco Comment one pack per d ay - quit 25 years ago [facility] Clinical Notes 06-02-2022 to 03-24-2025 Enrique Worthy - 03/14/2025 6:10 PM EDTSmitConsuelo bee LPN - 03/14/2025 3:58 PM EDTPatient InstructionsMicKassie ferrara PA-C - 02/01/2025 9:20 AM EDTPatient InstructionsPatient Instructions Note Date & Type Note Facility 03-24-2025 Radiology Diagnostic study note [facility] Imaging Services [address] [place] [address] [id number] Hand 2 Views MR#: [id number] Acct: [id number] Name: MAXIMINO GILMORE Rep #: [id number] : 1960 M 64 From: Jo Mahan MD PCP: Dr. Kimani Gentile MD Status: RE G CLI Study:Hand 2 Views Date of Exam: 5 Exam# [id number] Ordering Dr: Kimani Gentile MD EXAM: XR Left Hand, 2 Views CLINICAL INDICATION: ATTENTION 4 DIGIT, S/P FALL TECHNIQUE: Frontal and lateral views of the left hand. COMPARISON: No relevant prior studies available. FINDINGS: BONES/JOINTS: Severe degenerative changes of the intercarpal joints. Severe degenerative change of the radiocarpal joints. Mild degenerative change of the 1st carpometacarpal joint. No acute fracture. No dislocation. SOFT TISSUES: Soft tissue swelling. No radiopaque foreign body. RAD/Hand 2 Views IMPRESSION: Degenerative changes as above. Reading Location: [id number] CC: Dr. Kimani Gentile MD ~ Uniform Cap Operator: Signed [facility] 03-24-2025 Radiology Diagnostic study note [facility] Imaging Services [address] [place] [address] Chest PA and Lateral MR#: [id number] Acct: [id number] Name: MAXIMINO GILMORE Rep #: [id number] : 1960 M 64 From: Víctor Gonzalez MD PCP: Dr. Kimani Gentile MD Status: RE G CLI Study:Chest PA and Lateral Date of Exam: 03/24/25 Exam# [id number] Ordering Dr: Kimani Gentile MD PROCEDURE: CHEST PA AND LATERAL 03/24/2025 REASON FOR EXAM: RHONCHI TECHNIQUE: Frontal and lateral views of the chest. COMPARISON: Two-view chest, 08/17/2020. FINDINGS: The lungs are clear. The heart borders mediastinum and pulmonary vascular pattern are normal. The upper abdominal bowel gas pattern is normal. There are no bony abnormalities. RAD/Chest PA and Lateral IMPRESSION: No evidence of acute cardiopulmonary pathology. Reading Location: [id number] CC: Dr. Kimani Gentile MD ~ Uniform Cap Operator: Signed [facility] Work Phone: 03-14-2025 Note HNO ID: [id number] Author: ENRIQUE WORTHY, ? Service: ? Author Type: Physician Type: Progress Notes Filed: 03/14/2025 18:10 Note Text: Bijan Waldron is a 64-year-old male presenting for follow-up of left foot pain. Left Foot Pain: - Received an injection approximately one month ago, which alleviated pain on the dorsum of the foot. - Current pain has shifted medially, described as tolerable but exacerbated by physical activity such as mowing. - Taking ibuprofen with partial relief. - Wears Monique shoes; has inserts for [employer] but not currently using them. Musculoskeletal: (+) left foot pain, (-) left second/third tarsometatarsal joint pain PAST MEDICAL HISTORY Diagnosis Date Essential hypertension, benign Current Outpatient Medications Medication Sig Dispense Refill traZODone (DESYREL) 100 mg tablet Take 1 tablet by mouth daily at bedtime. 90 tablet 1 gabapentin (NEURONTIN) 600 mg tablet Take 1.5 tablets at 5PM, 1 tablet at 8PM, and 1 tablet at 11PM 945 tablet 1 MULTIVITAMIN ORAL Take 1 tablet by mouth once daily. cyanocobalamin (VITAMIN B-12) 500 mcg tablet Take 1 tablet by mouth once daily. cetirizine HCl/pseudoephedrine (ZYRTEC-D ORAL) Take 20 mg by mouth once daily. AM losartan (COZAAR) 100 mg tablet Take 100 mg by mouth once daily. LTTNX-FYZHE-3-MVO-YPB-BRAVCG ORAL Take 500 mg by mouth once daily. vitamin D3-folic acid 2,500 unit- 1 mg tab Take 2,000 Units by mouth once daily. famotidine(PEPCID AC 10 MG TAB) Take one(1) tablet daily. 0 aspirin(HALFPRIN 81 MG TAB) Take one(1) tablet daily. 0 No current facility-administered medications for this visit. Family History Problem Relation Age of Onset Arthritis Mother Hypertension Mother Arthritis Father Cancer Father prostate Heart Father Hypertension Father Diabetes Father Type II Arthritis Maternal Grandmother Hypertension Maternal Grandmother Arthritis Maternal Grandfather Heart Maternal Grandfather Hypertension Maternal Grandfather Arthritis Paternal Grandmother Heart Paternal Grandmother Hypertension Paternal Grandmother Alzheimer's Disease Paternal Grandfather Arthritis Paternal Grandfather Cancer Paternal Grandfather prostate Hypertension Paternal Grandfather Anesthesia Problems No Family History Objective There were no vitals taken for this visit. - Cardiovascular: Dorsalis pedis and posterior tibial pulses palpable in the left foot; capillary refill time <5 seconds. - Skin: Warm temperature from proximal to distal; hair growth present; no open sores noted on the left foot. - Musculoskeletal: - Left Foot: - No pain with palpation of the second or third tarsometatarsal joints. - Pain present at the navicular cuneiform joint. Labs: (May 2024) Creatinine: 0.92 mg/dL Imaging: (January 2025) Bilateral Foot X-rays: Significant arthritis in the left second tarsometatarsal joint and navicular cuneiform joint; arthritic changes noted in the right first metatarsophalangeal joint. Assessment AND Plan 1. Arthritis of left midfoot (M19.072) - Patient reports improvement in initial pain following corticosteroid injection in the second tarsometatarsal joint, but now experiences tolerable pain in navicular cun joint, exacerbated by physical activity. - Examination reveals no tenderness in the left second or third tarsometatarsal joints, but pain is present in the navicular cuneiform joint. - January 2025 X-rays show significant arthritis in the second tarsometatarsal joint and navicular cuneiform joint of the left foot. - Discussed treatment options: continue wearing Monique shoes, use inserts, and take ibuprofen as needed. - Advised patient to try inserts in Monique shoes and monitor pain. - If pain worsens, consider prescribing meloxicam after checking blood counts and kidney function, or refer to musculoskeletal radiology for a steroid injection under ultrasound guidance to navicular cun joint. - Patient agrees to current plan and will report back if pain does not improve. Recording using [employer] software for draft documentation of the visit was discussed with the patient/authorized patient registration representative; all questions welcomed and answered. Patient/authorized patient registration representative agreed to proceed Enrique Worthy DPM [facility] 03-14-2025 History of Present illness Narrative Subjective Maximino is a 64-year-old male presenting for follow-up of left foot pain. Left Foot Pain: - Received an injection approximately one month ago, which alleviated pain on the dorsum of the foot. - Current pain has shifted medially, described as tolerable but exacerbated by physical activity such as mowing. - Taking ibuprofen with partial relief. - Wears Monique shoes; has inserts for [employer] but not currently using them. Musculoskeletal: (+) left foot pain, (-) left second/third tarsometatarsal joint pain PAST MEDICAL HISTORY Diagnosis Date Essential hypertension, benign Current Outpatient Medications Medication Sig Dispense Refill traZODone (DESYREL) 100 mg tablet Take 1 tablet by mouth daily at bedtime. 90 tablet 1 gabapentin (NEURONTIN) 600 mg tablet Take 1.5 tablets at 5PM, 1 tablet at 8PM, and 1 tablet at 11PM 945 tablet 1 MULTIVITAMIN ORAL Take 1 tablet by mouth once daily. cyanocobalamin (VITAMIN B-12) 500 mcg tablet Take 1 tablet by mouth once daily. cetirizine HCl/pseudoephedrine (ZYRTEC-D ORAL) Take 20 mg by mouth once daily. AM losartan (COZAAR) 100 mg tablet Take 100 mg by mouth once daily. [id number] ORAL Take 500 mg by mouth once daily. vitamin D3-folic acid 2,500 unit- 1 mg tab Take 2,000 Units by mouth once daily. famotidine(PEPCID AC 10 MG TAB) Take one(1) tablet daily. 0 aspirin(HALFPRIN 81 MG TAB) Take one(1) tablet daily. 0 No current facility-administered medications for this visit. Family History Problem Relation Age of Onset Arthritis Mother Hypertension Mother Arthritis Father Cancer Father prostate Heart Father Hypertension Father Diabetes Father Type II Arthritis Maternal Grandmother Hypertension Maternal Grandmother Arthritis Maternal Grandfather Heart Maternal Grandfather Hypertension Maternal Grandfather Arthritis Paternal Grandmother Heart Paternal Grandmother Hypertension Paternal Grandmother Alzheimer's Disease Paternal Grandfather Arthritis Paternal Grandfather Cancer Paternal Grandfather prostate Hypertension Paternal Grandfather Anesthesia Problems No Family History Objective There were no vitals taken for this visit. - Cardiovascular: Dorsalis pedis and posterior tibial pulses palpable in the left foot; capillary refill time <5 seconds. - Skin: Warm temperature from proximal to distal; hair growth present; no open sores noted on the left foot. - Musculoskeletal: - Left Foot: - No pain with palpation of the second or third tarsometatarsal joints. - Pain present at the navicular cuneiform joint. Labs: (May 2024) Creatinine: 0.92 mg/dL Imaging: (January 2025) Bilateral Foot X-rays: Significant arthritis in the left second tarsometatarsal joint and navicular cuneiform joint; arthritic changes noted in the right first metatarsophalangeal joint. Assessment & Plan 1. Arthritis of left midfoot (M19.072) - Patient reports improvement in initial pain following corticosteroid injection in the second tarsometatarsal joint, but now experiences tolerable pain in navicular cun joint, exacerbated by physical activity. - Examination reveals no tenderness in the left second or third tarsometatarsal joints, but pain is present in the navicular cuneiform joint. - January 2025 X-rays show significant arthritis in the second tarsometatarsal joint and navicular cuneiform joint of the left foot. - Discussed treatment options: continue wearing Monique shoes, use inserts, and take ibuprofen as needed. - Advised patient to try inserts in Monique shoes and monitor pain. - If pain worsens, consider prescribing meloxicam after checking blood counts and kidney function, or refer to musculoskeletal radiology for a steroid injection under ultrasound guidance to navicular cun joint. - Patient agrees to current plan and will report back if pain does not improve. Recording using [employer] software for draft documentation of the visit was discussed with the patient/authorized patient registration representative; all questions welcomed and answered. Patient/authorized patient registration representative agreed to proceed Enrique Worthy DPM AMB ROOMING INTAKE FLOWSHEET DATA Pain Pain Level: 5 Pain Location: Foot-Left Description: Dull Duration Amount of Time: 1 Duration Units: Months Frequency: Intermittent Intervention/Comfort measure: Reposition, Relaxation Patient presents with: Left Foot - Established Patient, Pain: 1 month since injection Consuelo Prado LPN documented in this encounter [facility] 03-14-2025 Instructions Enrique Worthy - 03/14/2025 4:15 PM EDT - Continue taking ibuprofen as needed for pain relief. - Try placing your shoe inserts into your Monique supportive shoes and wear them during activities that aggravate your foot. - Monitor your foot pain over the coming days. - If your pain does not improve or worsens, contact the office to discuss next steps, which may include a prescription anti-inflammatory (such as meloxicam) or an ultrasound-guided steroid injection. documented in this encounter [facility] 03-14-2025 Note HNO ID: [id number] Author: CONSUELO PRADO LPN Service: ? Author Type: LICENSED NURSE Type: Progress Notes Filed: 03/14/2025 18:10 Note Text: AMB ROOMING INTAKE FLOWSHEET DATA Pain Pain Level: 5 Pain Location: Foot-Left Description: Dull Duration Amount of Time: 1 Duration Units: Months Frequency: Intermittent Intervention/Comfort measure: Reposition, Relaxation Patient presents with: Left Foot - Established Patient, Pain: 1 month since injection Consuelo Prado LPN [facility] 02-01-2025 History and physical note HISTORY AND PHYSICAL EXAMINATION SERVICE DATE: 02/01/2025 SERVICE TIME: 9:46 AM PRIMARY CARE PHYSICIAN: Kimani Gentile MD, MD REASON FOR VISIT: Maximino Gilmore is a 64 year old male who is scheduled for Procedure(s): INJECT ANKLE (Left) at the request of Dr. Enrique Worthy for consultation. My final recommendation will be communicated back to the requesting physician by way of shared medical record or letter. Subjective The patient has the following: ACTIVE PROBLEM LIST Seborrheic Dermatitis, Unspecified Unspecified Pruritic Disorder FOLLICULITIS///HAIR DISEASES NEC Pyoderma, Unspecified Disturbance of Skin Sensation Essential Hypertension Rls (Restless Legs Syndrome) Chronic Insomnia Gerd (Gastroesophageal Reflux Disease) Obesity COVID-19 Immunization Status Current Care Gaps Covid-19 Vaccine ( season) Overdue since 06/19/2024 10/14/2021 Imm Admin: COVID-19 original vaccine, full dose, monovalent (MODERNA) 02/01/2021 Imm Admin: COVID-19 original vaccine, full dose, monovalent (MODERNA) 01/04/2021 Imm Admin: COVID-19 original vaccine, full dose, monovalent (MODERNA) Only the first 3 history entries have been loaded, but more history exists. CHIEF COMPLAINT: pre op HPI: Maximino Gilmore is a 64 year old male presenting for pre-anesthesia consultation. Pt has history of arthritis of the left ankle. Above procedure recommended to manage symptoms. Procedure scheduled on 02/06/2025 at [facility]. REVIEW OF SYSTEMS: General: No weight loss, malaise or fevers. Neurological: Negative for: headaches, peripheral neuropathy, seizures, TIA and strokes. Respiratory: Negative for: asthma, COPD, current cough, dyspnea, home oxygen, tobacco use, URI < 2 weeks and obstructive sleep apnea. Cardiovascular: Denies dizziness or syncope. Positive for: hypertension Negative for: AICD/PPM, arrhythmia, CAD, chest pain, CHF, DVT/PE, recent WI, murmur/valvular heart disease, open heart surgery and valve surgery. GI: Positive for: GERD Negative for: abdominal pain, GI bleed <30 days, hepatitis, liver disease, nausea and vomiting. : Denies kidney disease Negative for: dysuria, frequent urination, hematuria and urinary tract infection. Endocrine: Negative for: diabetes mellitus, hyperthyroidism and hypothyroidism. Hematology: Negative for: anemia, bruises/bleeds easily, factor V Leiden, hemophilia, thrombocytopenia and von Willebrand disease. Oncology: No history of CA metastasis, chemo within 30 days, or radiotherapy within 90 days. No history of oncological symptoms or problems. Psych: Negative for: anxiety, bipolar disorder and depression. Musculoskeletal: See HPI. Skin: Negative for lesions, rash and itching. Implanted Devices: No implanted devices. PAST MEDICAL HISTORY Diagnosis Date Essential hypertension, benign PAST SURGICAL HISTORY Procedure Laterality Date PAST SURGICAL HISTORY OF carpal tunnel both wrist PAST SURGICAL HISTORY OF partial amputation right thumb PAST SURGICAL HISTORY OF tubes left ear as child TONSILLECTOMY & ADENOIDECTOMY FAMILY HISTORY Problem Relation Age of Onset Arthritis Mother Hypertension Mother Arthritis Father Cancer Father prostate Heart Father Hypertension Father Diabetes Father Type II Arthritis Maternal Grandmother Hypertension Maternal Grandmother Arthritis Maternal Grandfather Heart Maternal Grandfather Hypertension Maternal Grandfather Arthritis Paternal Grandmother Heart Paternal Grandmother Hypertension Paternal Grandmother Alzheimer's Disease Paternal Grandfather Arthritis Paternal Grandfather Cancer Paternal Grandfather prostate Hypertension Paternal Grandfather Anesthesia Problems No Family History Social History Tobacco Use Smoking status: Former Current packs/day: 1.00 Types: Cigarettes Smokeless tobacco: Never Tobacco comments: one pack per day - quit 25 years ago Vaping Use Vaping status: Never Used Substance Use Topics Alcohol use: Yes Comment: rare Drug use: Not Currently Types: Marijuana Prior to Admission medications as of 02/01/25 0919 Medication Sig Last Dose Taking traZODone (DESYREL) 100 mg tablet Take 1 tablet by mouth daily at bedtime. Yes gabapentin (NEURONTIN) 600 mg tablet Take 1.5 tablets at 5PM, 1 tablet at 8PM, and 1 tablet at 11PM Yes MULTIVITAMIN ORAL Take 1 tablet by mouth once daily. Yes cyanocobalamin (VITAMIN B-12) 500 mcg tablet Take 1 tablet by mouth once daily. Yes cetirizine HCl/pseudoephedrine (ZYRTEC-D ORAL) Take 20 mg by mouth once daily. AM Yes losartan (COZAAR) 100 mg tablet Take 100 mg by mouth once daily. Yes [id number] ORAL Take 500 mg by mouth once daily. Yes vitamin D3-folic acid 2,500 unit- 1 mg tab Take 2,000 Units by mouth once daily. Yes famotidine(PEPCID AC 10 MG TAB) Take one(1) tablet daily. Yes aspirin(HALFPRIN 81 MG TAB) Take one(1) tablet daily. Yes No medication comments found. ALLERGIES Allergen Reactions Naproxen Other: See Comments Objective PHYSICAL EXAM: General: alert and oriented and healthy appearance. Pertinent negatives noted - not distressed. Skin: normal color, no rash or lesions. HEENT: EOM intact, pupils equal round and pupils reactive to light. Pertinent negatives noted - no carotid bruit. Cardiovascular: regular rate and rhythm, normal S1 and S2, no rub, murmurs, or gallop. Respiratory: normal breath sounds, no wheezes or crackles. No chest wall deformity or tenderness. Abdomen: bowel sounds present and soft. Pertinent negatives noted - not tender. Extremities: no deformity, no edema or tenderness, no joint swelling or clubbing. Neurological: normal cognition and motor skills. Gait normal. No weakness or sensory deficit. PAIN ASSESSMENT: Pain Pain Level: 9 Pain Location: Foot-Left Description: Stabbing Duration Amount of Time: 3 Duration Units: Months Frequency: Continuous Intervention/Comfort measure: Medication VITALS: BP 132/90 Pulse 70 Temp (Src) 97.2 (Temporal) Resp 14 Ht 6' 0 (1.83m) Wt 252 lb (114.3kg) SpO2 96% BMI 34.17 kg/(m^2). Diagnostic tests reviewed for today's visit: Lab Value Units Date High Low HB No results within date range. HCT No results within date range. WBC No results within date range. PLT No results within date range. NA No results within date range. K No results within date range. GLUC No results within date range. BUN No results within date range. CREAT No results within date range. PTSEC No results within date range. INR No results within date range. APTT No results within date range. ALT No results within date range. AST No results within date range. TBILI No results within date range. TSH No results within date range. Lab Value Units Date High Low HCGQT No results within date range. UHCG No results within date range. HCG, BODY* No results within date range. Lab Value Units Date High Low ABORHD No results within date range. ABSCREEN No results within date range. Hemoglobin A1C (%) Date Value 06/02/2022 5.3 No results found for this or any previous visit (from the past 8760 hours). No results found for this or any previous visit (from the past 44092 hours). Assessment Patient has the following medical conditions which may affect dank-operative course: RLS (restless legs syndrome) Assessment: Managed on gabapentin qhs. Essential hypertension Assessment: Follows with PCP, adherent to RX. In office today BP: 132/90 GERD (gastroesophageal reflux disease) Assessment: Symptoms controlled on Pepcid daily. Obesity Assessment: Body mass index is 34.18 kg/m . ANESTHESIA FINDINGS: Intubation History: No history of difficult intubation. No abnormal airway history Significant Anesthesia Considerations: none Airway History: No history of difficult airway No abnormal airway history Yeager Activity Status Index: METS: Walk indoors, such as around the house (1.75 METs) Do light work around the house, such as dusting or washing dishes (2.70 METs) Take care of self; that is eating, dressing, bathing, using the toilet (2.75 METs) Walk a block or two on level ground (2.75 METs) Do moderate work around the house, such as vacuuming, sweeping floors, or carrying in groceries (3.50 METs) Do yardwork, such as raking leaves, weeding, or pushing a power mower (4.50 METs) Climb a flight of stairs or walk up a hill (5.50 METs) DASI Score: 23.45 Patient denies any chest pain or undue shortness of breath with the above physical activity. Clinical Frailty Scale: 3. Well, with treated comorbid disease STOP-Bang Score: Snores loudly Has or is being treated for high blood pressure Patient over 50 years old Male patient Denies feeling tired, fatigued, or sleepy during the daytime Has not been observed to stop breathing or choking/gasping during sleep BMI less than or equal to 35 kg/m^2 Does not have a large neck STOP-Bang Score: 4 I - PHYSICAL EVALUATION AIRWAY Patient intubated: No. Tracheostomy tube not present Mallampati: II. TM distance: >3 FB. Neck ROM: full ROM without neurological symptoms. Mouth opening: adequate. Short neck: no. Thick neck: no DENTAL Dental findings: teeth intact. II - ANESTHESIA PLAN Anesthetic Plan: other Anesthetic plan additional comments: *PACC/TCI - anesthesia choice. Beta Jayla Monitoring Plan Post Procedure Analgesic Plan Prepared for Surgery: optimally prepared for surgery. CONSULTS: Patient does not require consults for optimization at this time Planned Anesthetic: other anesthesia choice The Following Tests/Procedures Have Been Initiated: No orders of the defined types were placed in this encounter. Instructions Given to Patient: Instructions located in the after visit summary. Patient given verbal and written preop instructions and voices comprehension and compliance. SIGNATURE: Kassie Avila PA-C PATIENT NAME: Maximino Gilmore DATE: 02/01/2025 TIME: 9:46 AM PAGER/CONTACT #: [facility] 02-01-2025 History and physical note HISTORY AND PHYSICAL EXAMINATION SERVICE DATE: 02/01/2025 SERVICE TIME: 9:46 AM PRIMARY CARE PHYSICIAN: Kimani Gentile MD, MD REASON FOR VISIT: Maximino Gilmore is a 64 year old male who is scheduled for Procedure(s): INJECT ANKLE (Left) at the request of Dr. Enrique Worthy for consultation. My final recommendation will be communicated back to the requesting physician by way of shared medical record or letter. Subjective The patient has the following: ACTIVE PROBLEM LIST Seborrheic Dermatitis, Unspecified Unspecified Pruritic Disorder FOLLICULITIS///HAIR DISEASES NEC Pyoderma, Unspecified Disturbance of Skin Sensation Essential Hypertension Rls (Restless Legs Syndrome) Chronic Insomnia Gerd (Gastroesophageal Reflux Disease) Obesity COVID-19 Immunization Status Current Care Gaps Covid-19 Vaccine ( season) Overdue since 06/19/2024 10/14/2021 Imm Admin: COVID-19 original vaccine, full dose, monovalent (MODERNA) 02/01/2021 Imm Admin: COVID-19 original vaccine, full dose, monovalent (MODERNA) 01/04/2021 Imm Admin: COVID-19 original vaccine, full dose, monovalent (MODERNA) Only the first 3 history entries have been loaded, but more history exists. CHIEF COMPLAINT: pre op HPI: Maximino Gilmore is a 64 year old male presenting for pre-anesthesia consultation. Pt has history of arthritis of the left ankle. Above procedure recommended to manage symptoms. Procedure scheduled on 02/06/2025 at [facility]. REVIEW OF SYSTEMS: General: No weight loss, malaise or fevers. Neurological: Negative for: headaches, peripheral neuropathy, seizures, TIA and strokes. Respiratory: Negative for: asthma, COPD, current cough, dyspnea, home oxygen, tobacco use, URI < 2 weeks and obstructive sleep apnea. Cardiovascular: Denies dizziness or syncope. Positive for: hypertension Negative for: AICD/PPM, arrhythmia, CAD, chest pain, CHF, DVT/PE, recent WI, murmur/valvular heart disease, open heart surgery and valve surgery. GI: Positive for: GERD Negative for: abdominal pain, GI bleed <30 days, hepatitis, liver disease, nausea and vomiting. : Denies kidney disease Negative for: dysuria, frequent urination, hematuria and urinary tract infection. Endocrine: Negative for: diabetes mellitus, hyperthyroidism and hypothyroidism. Hematology: Negative for: anemia, bruises/bleeds easily, factor V Leiden, hemophilia, thrombocytopenia and von Willebrand disease. Oncology: No history of CA metastasis, chemo within 30 days, or radiotherapy within 90 days. No history of oncological symptoms or problems. Psych: Negative for: anxiety, bipolar disorder and depression. Musculoskeletal: See HPI. Skin: Negative for lesions, rash and itching. Implanted Devices: No implanted devices. PAST MEDICAL HISTORY Diagnosis Date Essential hypertension, benign PAST SURGICAL HISTORY Procedure Laterality Date PAST SURGICAL HISTORY OF carpal tunnel both wrist PAST SURGICAL HISTORY OF partial amputation right thumb PAST SURGICAL HISTORY OF tubes left ear as child TONSILLECTOMY & ADENOIDECTOMY <AGE 13 FAMILY HISTORY Problem Relation Age of Onset Arthritis Mother Hypertension Mother Arthritis Father Cancer Father prostate Heart Father Hypertension Father Diabetes Father Type II Arthritis Maternal Grandmother Hypertension Maternal Grandmother Arthritis Maternal Grandfather Heart Maternal Grandfather Hypertension Maternal Grandfather Arthritis Paternal Grandmother Heart Paternal Grandmother Hypertension Paternal Grandmother Alzheimer's Disease Paternal Grandfather Arthritis Paternal Grandfather Cancer Paternal Grandfather prostate Hypertension Paternal Grandfather Anesthesia Problems No Family History Social History Tobacco Use Smoking status: Former Current packs/day: 1.00 Types: Cigarettes Smokeless tobacco: Never Tobacco comments: one pack per day - quit 25 years ago Vaping Use Vaping status: Never Used Substance Use Topics Alcohol use: Yes Comment: rare Drug use: Not Currently Types: Marijuana Prior to Admission medications as of 02/01/25 0919 Medication Sig Last Dose Taking traZODone (DESYREL) 100 mg tablet Take 1 tablet by mouth daily at bedtime. Yes gabapentin (NEURONTIN) 600 mg tablet Take 1.5 tablets at 5PM, 1 tablet at 8PM, and 1 tablet at 11PM Yes MULTIVITAMIN ORAL Take 1 tablet by mouth once daily. Yes cyanocobalamin (VITAMIN B-12) 500 mcg tablet Take 1 tablet by mouth once daily. Yes cetirizine HCl/pseudoephedrine (ZYRTEC-D ORAL) Take 20 mg by mouth once daily. AM Yes losartan (COZAAR) 100 mg tablet Take 100 mg by mouth once daily. Yes [id number] ORAL Take 500 mg by mouth once daily. Yes vitamin D3-folic acid 2,500 unit- 1 mg tab Take 2,000 Units by mouth once daily. Yes famotidine(PEPCID AC 10 MG TAB) Take one(1) tablet daily. Yes aspirin(HALFPRIN 81 MG TAB) Take one(1) tablet daily. Yes No medication comments found. ALLERGIES Allergen Reactions Naproxen Other: See Comments Objective PHYSICAL EXAM: General: alert and oriented and healthy appearance. Pertinent negatives noted - not distressed. Skin: normal color, no rash or lesions. HEENT: EOM intact, pupils equal round and pupils reactive to light. Pertinent negatives noted - no carotid bruit. Cardiovascular: regular rate and rhythm, normal S1 and S2, no rub, murmurs, or gallop. Respiratory: normal breath sounds, no wheezes or crackles. No chest wall deformity or tenderness. Abdomen: bowel sounds present and soft. Pertinent negatives noted - not tender. Extremities: no deformity, no edema or tenderness, no joint swelling or clubbing. Neurological: normal cognition and motor skills. Gait normal. No weakness or sensory deficit. PAIN ASSESSMENT: Pain Pain Level: 9 Pain Location: Foot-Left Description: Stabbing Duration Amount of Time: 3 Duration Units: Months Frequency: Continuous Intervention/Comfort measure: Medication VITALS: BP 132/90 Pulse 70 Temp (Src) 97.2 (Temporal) Resp 14 Ht 6' 0 (1.83m) Wt 252 lb (114.3kg) SpO2 96% BMI 34.17 kg/(m^2). Diagnostic tests reviewed for today's visit: Lab Value Units Date High Low HB No results within date range. HCT No results within date range. WBC No results within date range. PLT No results within date range. NA No results within date range. K No results within date range. GLUC No results within date range. BUN No results within date range. CREAT No results within date range. PTSEC No results within date range. INR No results within date range. APTT No results within date range. ALT No results within date range. AST No results within date range. TBILI No results within date range. TSH No results within date range. Lab Value Units Date High Low HCGQT No results within date range. UHCG No results within date range. HCG, BODY* No results within date range. Lab Value Units Date High Low ABORHD No results within date range. ABSCREEN No results within date range. Hemoglobin A1C (%) Date Value 06/02/2022 5.3 No results found for this or any previous visit (from the past 8760 hours). No results found for this or any previous visit (from the past 00423 hours). Assessment Patient has the following medical conditions which may affect dank-operative course: RLS (restless legs syndrome) Assessment: Managed on gabapentin qhs. Essential hypertension Assessment: Follows with PCP, adherent to RX. In office today BP: 132/90 GERD (gastroesophageal reflux disease) Assessment: Symptoms controlled on Pepcid daily. Obesity Assessment: Body mass index is 34.18 kg/m . ANESTHESIA FINDINGS: Intubation History: No history of difficult intubation. No abnormal airway history Significant Anesthesia Considerations: none Airway History: No history of difficult airway No abnormal airway history Yeager Activity Status Index: METS: Walk indoors, such as around the house (1.75 METs) Do light work around the house, such as dusting or washing dishes (2.70 METs) Take care of self; that is eating, dressing, bathing, using the toilet (2.75 METs) Walk a block or two on level ground (2.75 METs) Do moderate work around the house, such as vacuuming, sweeping floors, or carrying in groceries (3.50 METs) Do yardwork, such as raking leaves, weeding, or pushing a power mower (4.50 METs) Climb a flight of stairs or walk up a hill (5.50 METs) DASI Score: 23.45 Patient denies any chest pain or undue shortness of breath with the above physical activity. Clinical Frailty Scale: 3. Well, with treated comorbid disease STOP-Bang Score: Snores loudly Has or is being treated for high blood pressure Patient over 50 years old Male patient Denies feeling tired, fatigued, or sleepy during the daytime Has not been observed to stop breathing or choking/gasping during sleep BMI less than or equal to 35 kg/m^2 Does not have a large neck STOP-Bang Score: 4 I - PHYSICAL EVALUATION AIRWAY Patient intubated: No. Tracheostomy tube not present Mallampati: II. TM distance: >3 FB. Neck ROM: full ROM without neurological symptoms. Mouth opening: adequate. Short neck: no. Thick neck: no DENTAL Dental findings: teeth intact. II - ANESTHESIA PLAN Anesthetic Plan: other Anesthetic plan additional comments: *PACC/TCI - anesthesia choice. Beta Jayla Monitoring Plan Post Procedure Analgesic Plan Prepared for Surgery: optimally prepared for surgery. CONSULTS: Patient does not require consults for optimization at this time Planned Anesthetic: other anesthesia choice The Following Tests/Procedures Have Been Initiated: No orders of the defined types were placed in this encounter. Instructions Given to Patient: Instructions located in the after visit summary. Patient given verbal and written preop instructions and voices comprehension and compliance. SIGNATURE: Kassie Avila PA-C PATIENT NAME: Maximino Gilmore DATE: 02/01/2025 TIME: 9:46 AM PAGER/CONTACT #: documented in this encounter [facility] 02-01-2025 Instructions Kassie Avila PA-C - 02/01/2025 9:18 AM EDT Images from the original note were not included. [facility] PATIENT PREOPERATIVE INSTRUCTIONS Enrique Worthy DPM has scheduled you for your procedure at this surgery center: [facility]: [phone] -- [address] [address]. Please read below carefully for your personalized instructions. Arrival Time for Surgery: - The Surgery Center or hospital where you are having surgery will call the afternoon before surgery (or Thursday for Thursday surgery) with a scheduled arrival time. - If you have not heard by 4 pm, please contact the surgery center above. Please be aware that emergency situations arise, which may delay or change your surgical time. If this happens, we will notify you as soon as possible and regret any inconvenience. Dietary Restrictions: - No solid food after midnight. - You may have 12 ounces of clear liquids (water, clear juices such as apple juice or gatorade, carbonated beverages, clear tea, black coffee, jello) until 2 hours before scheduled arrival at facility. - Do not drink any alcohol after midnight the night before your surgery. Medications: Unless instructed differently below, stay on all of your medications until your surgery. If you start any new medications after today's visit, please contact your surgeon. Pre-Surgery Med Instructions Medication Instructions traZODone (DESYREL) 100 mg tablet Continue as needed gabapentin (NEURONTIN) 600 mg tablet If you normally take this medication in the morning, take the morning of surgery. MULTIVITAMIN ORAL Do not take the day of surgery cyanocobalamin (VITAMIN B-12) 500 mcg tablet Do not take the day of surgery cetirizine HCl/pseudoephedrine (ZYRTEC-D ORAL) Do not take the day of surgery losartan (COZAAR) 100 mg tablet If you normally take this medication in the morning, take the morning of surgery. [id number] ORAL Do not take the day of surgery vitamin D3-folic acid 2,500 unit- 1 mg tab Do not take the day of surgery famotidine(PEPCID AC 10 MG TAB) If you normally take this medication in the morning, take the morning of surgery. aspirin(HALFPRIN 81 MG TAB) Hold 7 days before surgery. Last dose 01/30. If you take any medications for erectile dysfunction-Cialis (Tadalafil), Levitra, Staxyn (Vardenafil) Viagra (Sildenenafil please do not take these for 48 hours before surgery. If you start any new medications after today's visit, please contact the surgeon's office. If you are currently using a fxtu-vgx-aalb injectable or oral medication for diabetes or weight loss such as Dulaglutide (Trulicity), Exenatide (Byetta, Bydureon), Liraglutide (Victoza, Saxenda), Semaglutide (Ozempic, Wegovy, Rybelsus), or Tirzepatide (Mounjaro), the medicine should be stopped at least 7 days before surgery. These medicines can cause food to remain in your stomach for a very long time and increase the risks from surgery and anesthesia. Not stopping the medication for a long enough time may result in your surgery being rescheduled. Blood Thinning Medications: - Stop NSAIDS (Ibuprofen, Advil, Aleve, Motrin, Celebrex, Mobic, etc.) 7 days before surgery, as directed by your surgeon. - Stop Aspirin 7 days before surgery, as directed by your surgeon. - You may take Tylenol (Acetaminophen) or any of your pain medications that do not contain aspirin or NSAIDS as needed. Important Reminders: - If you use CPAP/BIPAP, bring the machine with you to the surgery center. - Candy, mints, and tobacco products are NOT permitted the morning of surgery. - Hearing aids, dentures and glasses may be worn the morning of surgery. - NO jewelry, body piercings, makeup, hairpins or contacts are to be worn the day of surgery. If you develop symptoms such as a fever, cold, or flu, or have other changes to your health within TWO DAYS of scheduled surgery or the morning of surgery, please contact the surgery center above. Personal Belongings: -Please have photo ID and insurance cards. -If you do not have a copy of advance directives on file with us, please bring a copy with you on the day of surgery. - Leave ALL valuables and money at home or with family members. - Please bring high-quality footwear, such as sneakers, to the hospital for ambulating post-surgery. For Outpatient Procedures: - YOU MUST HAVE A RESPONSIBLE CRNA TAKE YOU HOME. A RN LACTATION CONSULTANT OR TABLE ASSEMBLER METAL CANNOT BE MADE A RESPONSIBLE CRNA. - We recommend that a responsible person stays with you overnight to take care of you. - You cannot stay in a hotel alone after outpatient surgery. You will not be permitted to have your surgery, if you do not have someone to take care of you. If you already have an Advance Directive, please fax a copy to [phone] or email to for it to be added to your chart. If you do not have an Advance Directive, you can find the appropriate form and more information at [email or web address]. We recommend that you complete the Advance Directive form found on the website and bring it with you the day of your surgery. It can be witnessed and scanned into your chart that day. Kassie Avila PA-C documented in this encounter [facility] 01-27-2025 History of Present illness Narrative Radiology Service Progress Note PATIENT NAME: Maximino Gilmore DATE OF SERVICE: January 27, 2025 TIME: 10:16 AM PATIENT IDENTITY VERIFICATION COMPLETED USING TWO (2) IDENTIFIERS: Name and Date of confirmed by patient verbally. FALL SCREENING: Has the patient had 2 falls in the last year or 1 fall with injury or currently using an Ambulatory Assistive Device (Walker, Cane, Wheelchair, Crutches, etc.)? No PATIENT GENDER DATA: Assigned male at PATIENT RELEVANT IMPLANT DATA REVIEWED: Not Applicable PATIENT PRESENTS WITH AN IMPLANTABLE OR ATTACHED LIGHT ARMORED RECONNAISSANCE OFFICER: No RADIOLOGY DEPARTMENT: General X-ray: Exam(s) Completed: Lower Extremity X-Ray(s): Foot, Bilateral and Wt. Bearing PERIPHERAL IV DATA: Not applicable SIGNED BY: RT Aleks(Harper) January 27, 2025 10:16 AM documented in this encounter [facility] 01-27-2025 Note HNO ID: [id number] Author: SELENA LEMONS RT(Harper) Service: Radiology Author Type: Technologist Type: Progress Notes Filed: 01/27/2025 10:26 Note Text: Radiology Service Progress Note PATIENT NAME: Maximino Gilmore DATE OF SERVICE: January 27, 2025 TIME: 10:16 AM PATIENT IDENTITY VERIFICATION COMPLETED USING TWO (2) IDENTIFIERS: Name and Date of confirmed by patient verbally. FALL SCREENING: Has the patient had 2 falls in the last year or 1 fall with injury or currently using an Ambulatory Assistive Device (Walker, Cane, Wheelchair, Crutches, etc.)? No PATIENT GENDER DATA: Assigned male at PATIENT RELEVANT IMPLANT DATA REVIEWED: Not Applicable PATIENT PRESENTS WITH AN IMPLANTABLE OR ATTACHED LIGHT ARMORED RECONNAISSANCE OFFICER: No RADIOLOGY DEPARTMENT: General X-ray: Exam(s) Completed: Lower Extremity X-Ray(s): Foot, Bilateral and Wt. Bearing PERIPHERAL IV DATA: Not applicable SIGNED BY: RT Aleks(R) January 27, 2025 10:16 AM [facility] 01-27-2025 Note HNO ID: [id number] Author: ENRIQUE WORTHY, ? Service: ? Author Type: Physician Type: Progress Notes Filed: 01/27/2025 10:13 Note Text: Bijan Waldron is a 64-year-old male presenting for evaluation of left foot pain. 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 - Onset a few months before Maximino's initial visit; significantly worsened over the past two months. - Most severe pain is on the plantar and dorsal aspect of the midfoot. - Using supportive footwear, including Monique and Skechers with PowerStep inserts. - Taking gabapentin; avoids ibuprofen due to medication interactions. - Considering a steroid injection for pain relief. - Denies pain in the right foot. Musculoskeletal: (+) left foot pain PAST MEDICAL HISTORY Diagnosis Date Essential hypertension, benign ALLERGIES Allergen Reactions Naproxen Other: See Comments Family History Problem Relation Age of Onset Alzheimer's Disease Paternal Grandfather Arthritis Mother Arthritis Father Arthritis Maternal Grandmother Arthritis Maternal Grandfather Arthritis Paternal Grandmother Arthritis Paternal Grandfather Cancer Father prostate Cancer Paternal Grandfather prostate Heart Father Heart Paternal Grandmother Heart Maternal Grandfather Hypertension Mother Hypertension Father Hypertension Maternal Grandmother Hypertension Maternal Grandfather Hypertension Paternal Grandmother Hypertension Paternal Grandfather Diabetes Father Type II Objective There were no vitals taken for this visit. - Cardiovascular: Dorsalis pedis and posterior tibial pulses palpable bilaterally; capillary refill brisk. - Skin: No open sores or calluses noted; skin well-hydrated, normal color, normal temperature; hair growth present bilaterally. - Musculoskeletal: - Left Foot: - Pain to palpation of midfoot along second and third tarsometatarsal joints, plantar midfoot, and navicular cuneiform joint. - No pain to palpation of medial or lateral heel, subtalar joint. - Pain with ROM of midtarsal joint. - Right Foot: - No pain to palpation of midfoot. - No pain with ROM of midtarsal joint. - Neurological: Protective sensation intact bilaterally. Labs: Tests: Imaging: (05/19/2024) Bilateral Foot X-rays: - Left foot: Narrowed second and third tarsometatarsal joints with marked arthritic changes; navicular cuneiform joint also shows arthritic narrowing. - Right foot: Less pronounced arthritic changes compared to left. 1. Arthritis of left midfoot (M19.072) 2. Pain in left foot (M79.672) - Examination reveals pain to palpation of the left midfoot along the second and third tarsometatarsal joints and the navicular cuneiform joint. No pain to palpation of the left medial or lateral heel or subtalar joint. Pain present across the left midfoot with range of motion of the midtarsal joint. - X-rays from May 19, 2024, show narrowing of the tarsometatarsal joint on the left foot, with arthritis more severe on the left compared to the right. Arthritis also present in the navicular cuneiform joint. - Ordered repeat bilateral foot x-rays to assess progression of arthritis. - Continue wearing supportive footwear such as Monique, HOKAs, ASICS and use PowerStep inserts. - Advised use of extra strength Tylenol for pain management. - Scheduled x-ray guided corticosteroid injection of the left tarsometatarsal joint under sedation in the operating room to provide therapeutic and diagnostic relief. - Discussed risks of the procedure, including infection, bleeding, and potential failure to alleviate pain. - Patient understands and agrees with the treatment plan. Attestation The patient consented to the use of [employer] software for draft documentation of the visit consistent with [facility]?s Notice of Privacy Practices. Enrique Worthy DPM [facility] 01-27-2025 History of Present illness Narrative Subjective Maximino is a 64-year-old male presenting for evaluation of left foot pain. 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 - Onset a few months before Maximino's initial visit; significantly worsened over the past two months. - Most severe pain is on the plantar and dorsal aspect of the midfoot. - Using supportive footwear, including Monique and Skechers with PowerStep inserts. - Taking gabapentin; avoids ibuprofen due to medication interactions. - Considering a steroid injection for pain relief. - Denies pain in the right foot. Musculoskeletal: (+) left foot pain PAST MEDICAL HISTORY Diagnosis Date Essential hypertension, benign ALLERGIES Allergen Reactions Naproxen Other: See Comments Family History Problem Relation Age of Onset Alzheimer's Disease Paternal Grandfather Arthritis Mother Arthritis Father Arthritis Maternal Grandmother Arthritis Maternal Grandfather Arthritis Paternal Grandmother Arthritis Paternal Grandfather Cancer Father prostate Cancer Paternal Grandfather prostate Heart Father Heart Paternal Grandmother Heart Maternal Grandfather Hypertension Mother Hypertension Father Hypertension Maternal Grandmother Hypertension Maternal Grandfather Hypertension Paternal Grandmother Hypertension Paternal Grandfather Diabetes Father Type II Objective There were no vitals taken for this visit. - Cardiovascular: Dorsalis pedis and posterior tibial pulses palpable bilaterally; capillary refill brisk. - Skin: No open sores or calluses noted; skin well-hydrated, normal color, normal temperature; hair growth present bilaterally. - Musculoskeletal: - Left Foot: - Pain to palpation of midfoot along second and third tarsometatarsal joints, plantar midfoot, and navicular cuneiform joint. - No pain to palpation of medial or lateral heel, subtalar joint. - Pain with ROM of midtarsal joint. - Right Foot: - No pain to palpation of midfoot. - No pain with ROM of midtarsal joint. - Neurological: Protective sensation intact bilaterally. Labs: Tests: Imaging: (05/19/2024) Bilateral Foot X-rays: - Left foot: Narrowed second and third tarsometatarsal joints with marked arthritic changes; navicular cuneiform joint also shows arthritic narrowing. - Right foot: Less pronounced arthritic changes compared to left. 1. Arthritis of left midfoot (M19.072) 2. Pain in left foot (M79.672) - Examination reveals pain to palpation of the left midfoot along the second and third tarsometatarsal joints and the navicular cuneiform joint. No pain to palpation of the left medial or lateral heel or subtalar joint. Pain present across the left midfoot with range of motion of the midtarsal joint. - X-rays from May 19, 2024, show narrowing of the tarsometatarsal joint on the left foot, with arthritis more severe on the left compared to the right. Arthritis also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 differently: ) losartan (COZAAR) 100 mg tablet Take 100 mg by mouth once daily. [id number] ORAL Take 500 mg by mouth once daily. vitamin D3-folic acid 2,500 unit- 1 mg tab Take 2,000 Units by mouth once daily. famotidine(PEPCID AC 10 MG TAB) Take one(1) tablet daily. aspirin(HALFPRIN 81 MG TAB) Take one(1) tablet daily. HISTORIES PAST MEDICAL HISTORY Diagnosis Date Essential hypertension, benign FAMILY HISTORY Problem Relation Age of Onset Alzheimer's Disease Paternal Grandfather Arthritis Mother Arthritis Father Arthritis Maternal Grandmother Arthritis Maternal Grandfather Arthritis Paternal Grandmother Arthritis Paternal Grandfather Cancer Father prostate Cancer Paternal Grandfather prostate Heart Father Heart Paternal Grandmother Heart Maternal Grandfather Hypertension Mother Hypertension Father Hypertension Maternal Grandmother Hypertension Maternal Grandfather Hypertension Paternal Grandmother Hypertension Paternal Grandfather Diabetes Father Type II SOCIAL HISTORY Social History Tobacco Use Smoking status: Former Current packs/day: 1.00 Types: Cigarettes Tobacco comments: one pack per day Vaping Use Vaping status: Never Used Substance Use Topics Alcohol use: Yes Comment: rare Drug use: Not Currently Types: Marijuana PHYSICAL EXAMINATION BP 128/78 (BP Site: Right Arm, BP Position: Sitting) Pulse 70 Wt 104.9 kg (231 lb 3.2 oz) SpO2 100% GENERAL EXAM: General appearance: NAD, pleasant. HEENT: NC/AT, nasal congestion absent, no oral lesions, membranes moist. Lungs: CTA bilaterally. CV: RRR nl S1, S2. Extr: No cyanosis, clubbing or edema. NEUROLOGICAL EXAM: General: Awake, alert, oriented x3 (person,place,time), fluent, no dysarthria; comprehension, naming, repetition intact. CN: PERRL, EOMI and without nystagmus, VFF to confrontation, facial sensation and strength are normal and symmetric, hearing is intact to finger rub bilaterally, palate and tongue movements are intact and symmetric. SCM and trapezius strength normal. Motor: Normal tone, bulk and strength (5/5) bilaterally (throughout extremities x4). Coordination: FNF, RUBEN intact. No tremors. Sensation: LT, Vib, Temp intact throughout. No evidence of neglect. Gait: Stable with normal stride and arm swing. Assessment and Plan: ASSESSMENT/PLAN: 1. RLS (restless legs syndrome) - ICD9: 333.94, ICD10: G25.81 (primary diagnosis) Overall doing well on current gabapentin dose, without side effects. Some breakthrough RLS late in evening, but pt thinks behavioral changes should help and would prefer to not change dosing of gabapentin or add new medications at this time. SE and ADRs reviewed with pt. Renal function unremarkable. Recent Ferritin unremarkable. Refills provided. 2. Insomnia, unspecified type - ICD9: 780.52, ICD10: G47.00 Doing well on Trazodone 50mg QHS. No side effects. Feels once asleep, best sleep he has had in years. No changes at this time. 3. Snoring - ICD9: 786.09, ICD10: R06.83 Resolved with weight loss as above. No other s/s of MATTIE at this time. No further sleep testing at this time. Kendell Gambino MD Medical Decision Making: Problems: Moderate: 2+ stable chronic illnesses Data: Unique test result(s) reviewed: 1 Risk: Moderate: Drug management Medical Decision Making Level: 4 - Moderate PDMP website checked and validated. All prescriptions have been APPROPRIATELY filled. No suspicious activity was identified. 07/08/2024 by Kendell Gambino MD documented in this encounter [facility] 06-28-2024 Note HNO ID: [id number] Author: ENRIQUE WORTHY, ? Service: ? Author Type: Physician Type: Progress Notes Filed: 06/28/2024 15:08 Note Text: FOLLOW UP PODIATRIC OFFICE VISIT Chief Complaint: This 64 year old who presents for follow up:b/l foot pain Patient presents to clinic for follow-up b/l foot pain Patient states the pain in right foot has improved The pain in the left foot is still present. Pain is located to the midfoot, left ankld and ball of left foot Patient states the pain is worse by evening. Pain is not as bad in the morning. Is using inserts for the pain and that does help. Patient will take ibuprofen if the pain is bad PAIN EVALUATION 06/28/2024 1436 Pain Level: 7 2-04/27 Pain Location: Other: See Comment B/L feet Description: Sharp Duration Units: Months Frequency: Continuous Intervention/Comfort measure: Reposition;Relaxation;Medication Power Step inserts, Mobic Hemoglobin A1C Date Value Ref Range Status 06/02/2022 5.3 4.3 - 5.6 % Final Comment: [place] [employer] guidelines indicate that patients with HgbA1c in the range 5.7-6.4% are at increased risk for development of diabetes, and intervention by lifestyle modification may be beneficial. HgbA1c greater or equal to 6.5% is considered diagnostic of diabetes. PCP: Kimani Gentile MD, MD PAST MEDICAL HISTORY No date: Essential hypertension, benign Current Outpatient Medications Medication Sig MULTIVITAMIN ORAL Take 1 tablet by mouth once daily. sertraline (ZOLOFT) 50 mg tablet Take 50 mg by mouth once daily. cyanocobalamin (VITAMIN B-12) 500 mcg tablet Take 1 tablet by mouth once daily. traZODone (DESYREL) 50 mg tablet Take 1 tablet by mouth daily at bedtime. cetirizine HCl/pseudoephedrine (ZYRTEC-D ORAL) Take 20 mg by mouth once daily. AM gabapentin (NEURONTIN) 600 mg tablet Take 1 tablet at 5PM, 1 tablet at 8PM, and 1.5 tabs at 11PM. (Patient taking differently: ) losartan (COZAAR) 100 mg tablet Take 100 mg by mouth once daily. [id number] ORAL Take 500 mg by mouth once daily. vitamin D3-folic acid 2,500 unit- 1 mg tab Take 2,000 Units by mouth once daily. famotidine(PEPCID AC 10 MG TAB) Take one(1) tablet daily. aspirin(HALFPRIN 81 MG TAB) Take one(1) tablet daily. No current facility-administered medications for this visit. ALLERGIES Allergen Reactions Naproxen Other: See Comments PAST SURGICAL HISTORY No date: PAST SURGICAL HISTORY OF Comment: carpal tunnel both wrist No date: PAST SURGICAL HISTORY OF Comment: partial amputation right thumb No date: PAST SURGICAL HISTORY OF Comment: tubes left ear as child No date: TONSILLECTOMY AND ADENOIDECTOMY Physical Exam: OBJECTIVE: Constitutional: Pt is a well developed 64 year old male who is alert, oriented, cooperative and in no apparent distress. Eyes: Following during examination. No redness or drainage. Respiratory: RR normal and nonlabored. Even breathing. No evidence of distress. Psychology: Patient is engaged during conversation. Normal affect and mood. Does not appear depressed or anxious. NVSI unchanged from previous visit. Dermatological: Nails 1-5 b/l are normal. Webspaces clean and dry 1-4 b/l. Skin appears well hydrated and supple. good color, texture, turgor. No open lesions present. No callosities present. Musculoskeletal/Orthopaedic: Patient has pain to palpation of left 2nd tarsal metatarsal joint Mild decrease rom of left 1st mtpj Severe decrease rom of right 1st mtpj ASSESSMENT: (M19.071, M19.072) Arthritis of both midfeet (primary encounter diagnosis) PLAN: Discussed pain in left midfoot Suspect arthritis Continue with good supportive shoes and inserts. If pain were to become worse, consider xray guided injection of left midfoot Enrique Worthy DPM [facility] 06-28-2024 History of Present illness Narrative Images from the original note were not included. FOLLOW UP PODIATRIC OFFICE VISIT Chief Complaint: This 64 year old who presents for follow up:b/l foot pain Patient presents to clinic for follow-up b/l foot pain Patient states the pain in right foot has improved The pain in the left foot is still present. Pain is located to the midfoot, left ankld and ball of left foot Patient states the pain is worse by evening. Pain is not as bad in the morning. Is using inserts for the pain and that does help. Patient will take ibuprofen if the pain is bad PAIN EVALUATION 06/28/2024 1436 Pain Level: 7 2-04/27 Pain Location: Other: See Comment B/L feet Description: Sharp Duration Units: Months Frequency: Continuous Intervention/Comfort measure: Reposition;Relaxation;Medication Power Step inserts, Mobic Hemoglobin A1C Date Value Ref Range Status 06/02/2022 5.3 4.3 - 5.6 % Final Comment: [place] [employer] guidelines indicate that patients with HgbA1c in the range 5.7-6.4% are at increased risk for development of diabetes, and intervention by lifestyle modification may be beneficial. HgbA1c greater or equal to 6.5% is considered diagnostic of diabetes. PCP: Kimani Gentile MD, MD PAST MEDICAL HISTORY No date: Essential hypertension, benign Current Outpatient Medications Medication Sig MULTIVITAMIN ORAL Take 1 tablet by mouth once daily. sertraline (ZOLOFT) 50 mg tablet Take 50 mg by mouth once daily. cyanocobalamin (VITAMIN B-12) 500 mcg tablet Take 1 tablet by mouth once daily. traZODone (DESYREL) 50 mg tablet Take 1 tablet by mouth daily at bedtime. cetirizine HCl/pseudoephedrine (ZYRTEC-D ORAL) Take 20 mg by mouth once daily. AM gabapentin (NEURONTIN) 600 mg tablet Take 1 tablet at 5PM, 1 tablet at 8PM, and 1.5 tabs at 11PM. (Patient taking differently: ) losartan (COZAAR) 100 mg tablet Take 100 mg by mouth once daily. [id number] ORAL Take 500 mg by mouth once daily. vitamin D3-folic acid 2,500 unit- 1 mg tab Take 2,000 Units by mouth once daily. famotidine(PEPCID AC 10 MG TAB) Take one(1) tablet daily. aspirin(HALFPRIN 81 MG TAB) Take one(1) tablet daily. No current facility-administered medications for this visit. ALLERGIES Allergen Reactions Naproxen Other: See Comments PAST SURGICAL HISTORY No date: PAST SURGICAL HISTORY OF Comment: carpal tunnel both wrist No date: PAST SURGICAL HISTORY OF Comment: partial amputation right thumb No date: PAST SURGICAL HISTORY OF Comment: tubes left ear as child No date: TONSILLECTOMY & ADENOIDECTOMY <AGE 13 Physical Exam: OBJECTIVE: Constitutional: Pt is a well developed 64 year old male who is alert, oriented, cooperative and in no apparent distress. Eyes: Following during examination. No redness or drainage. Respiratory: RR normal and nonlabored. Even breathing. No evidence of distress. Psychology: Patient is engaged during conversation. Normal affect and mood. Does not appear depressed or anxious. NVSI unchanged from previous visit. Dermatological: Nails 1-5 b/l are normal. Webspaces clean and dry 1-4 b/l. Skin appears well hydrated and supple. good color, texture, turgor. No open lesions present. No callosities present. Musculoskeletal/Orthopaedic: Patient has pain to palpation of left 2nd tarsal metatarsal joint Mild decrease rom of left 1st mtpj Severe decrease rom of right 1st mtpj ASSESSMENT: (M19.071, M19.072) Arthritis of both midfeet (primary encounter diagnosis) PLAN: Discussed pain in left midfoot Suspect arthritis Continue with good supportive shoes and inserts. If pain were to become worse, consider xray guided injection of left midfoot Enrique Worthy DPM AMB ROOMING INTAKE FLOWSHEET DATA Pain Pain Level: 7 (2-710) Pain Location: Other: See Comment (B/L feet) Description: Sharp Duration Units: Months Frequency: Continuous Intervention/Comfort measure: Reposition, Relaxation, Medication (Power Step inserts, Mobic) Patient presents with: Left Foot - Follow Up, Pain Right Foot - Follow Up, Pain documented in this encounter [facility] 06-28-2024 Note HNO ID: [id number] Author: CARA ANSARI RN Service: ? Author Type: Registered Nurse Type: Progress Notes Filed: 06/28/2024 15:08 Note Text: AMB ROOMING INTAKE FLOWSHEET DATA Pain Pain Level: 7 (2-710) Pain Location: Other: See Comment (B/L feet) Description: Sharp Duration Units: Months Frequency: Continuous Intervention/Comfort measure: Reposition, Relaxation, Medication (Power Step inserts, Mobic) Patient presents with: Left Foot - Follow Up, Pain Right Foot - Follow Up, Pain [facility] 05-19-2024 Instructions Enrique Worthy - 05/19/2024 2:05 PM EDT Would avoid marian cottrell and kerry Recommend hoka or asics or monique or new balance Powerstep Original Full length. Can purchase at [employer] and boots,shoes and more here in [place], [employer] in [place] or [place]. Also can find in [place] in [facility]. Powersteps can also be purchased online, starting around $45.00 If you have a metatarsal or dancer pad for your feet apply the pad directly to the insole so you can interchange between your shoes. Find a shoe with a removable insole and take this out and replace with your powerstep insole. Always bring powersteps with you when shopping for shoes so that you can make sure that everything fits well together documented in this encounter [facility] 05-19-2024 Note HNO ID: [id number] Author: ENRIQUE WORTHY, ? Service: ? Author Type: Physician Type: Progress Notes Filed: 05/20/2024 07:22 Note Text: Initial Podiatric Office Visit: Chief Complaint: This 63 year old male who presents with chief complaint:b/l foot pain HPI Patient presents to clinic for evaluation of b/l feet He has pain along the top of both feet L>R Patient states the pain has been present for a couple of months If the pain is severe, he will take ibuprofen. Patient states the pain is constant, worse with activity. PAIN EVALUATION 05/19/2024 1339 Pain Level: 7 Pain Location: Other: See Comment bilateral feet Description: Aching Duration Amount of Time: -- few Duration Units: Months Frequency: Continuous Intervention/Comfort measure: Relaxation;Reposition Hemoglobin A1C (%) Date Value 06/02/2022 5.3 PCP: Kimani Gentile MD, MD PAST MEDICAL HISTORY No date: Essential hypertension, benign Current Outpatient Medications Medication Sig traZODone (DESYREL) 50 mg tablet Take 1 tablet by mouth daily at bedtime. cetirizine HCl/pseudoephedrine (ZYRTEC-D ORAL) Take by mouth. AM gabapentin (NEURONTIN) 600 mg tablet Take 1 tablet at 5PM, 1 tablet at 8PM, and 1.5 tabs at 11PM. (Patient taking differently: 600 mg. OF 12/2023 taking Gabapentin x1 tablet 5:00 PM, x1 tablet 8:00 PM, x1.5 tablet 10:30 - 11:00 PM.) losartan (COZAAR) 100 mg tablet Take 100 mg by mouth once daily. [id number] ORAL Take 1,290 mg by mouth once daily. vitamin D3-folic acid 2,500 unit- 1 mg tab Take 2,000 Units by mouth once daily. famotidine(PEPCID AC 10 MG TAB) Take one(1) tablet daily. aspirin(HALFPRIN 81 MG TAB) Take one(1) tablet daily. No current facility-administered medications for this visit. ALLERGIES Allergen Reactions Naproxen Other: See Comments PAST SURGICAL HISTORY No date: PAST SURGICAL HISTORY OF Comment: carpal tunnel both wrist No date: PAST SURGICAL HISTORY OF Comment: partial amputation right thumb No date: PAST SURGICAL HISTORY OF Comment: tubes left ear as child No date: TONSILLECTOMY AND ADENOIDECTOMY FAMILY HISTORY Problem Relation Age of Onset Alzheimer's Disease Paternal Grandfather Arthritis Mother Arthritis Father Arthritis Maternal Grandmother Arthritis Maternal Grandfather Arthritis Paternal Grandmother Arthritis Paternal Grandfather Cancer Father prostate Cancer Paternal Grandfather prostate Heart Father Heart Paternal Grandmother Heart Maternal Grandfather Hypertension Mother Hypertension Father Hypertension Maternal Grandmother Hypertension Maternal Grandfather Hypertension Paternal Grandmother Hypertension Paternal Grandfather Diabetes Father Type II Social History Tobacco Use Smoking status: Former Packs/day: 1 Types: Cigarettes Tobacco comments: one pack per day Vaping Use Vaping Use: Never used Substance Use Topics Alcohol use: Yes Comment: rare Drug use: Not Currently Types: Marijuana REVIEW OF SYSTEMS GENERAL: Negative for Malaise, significant weight loss, fever RESPIRATORY: Negative for cough, wheezing and shortness of breath CARDIOVASCULAR: Negative for chest pain, leg swelling and palpitations GI: Negative for abdominal discomfort, blood in stools or black stools and change in bowel habits : Negative for dysuria, frequency and incontinence MUSCULOSKELETAL: Negative for joint pain or swelling, back pain, and muscle pain. SKIN: Negative for lesions, rash, and itching. HEMATOLOGY/LYMPHOLOGY Negative for prolonged bleeding, bruising easily, and swollen nodes. ENDOCRINE: Negative for cold or heat intolerance, polyuria, polydipsia and goiter. NEURO: negative Physical Exam: Constitutional: Pt is a well developed 63 year old male who is alert, oriented and cooperative Eyes: Following during examination. No redness or drainage. Respiratory: RR normal and nonlabored. Even breathing. No evidence of distress or shortness of breath. Psychology: Patient is engaged during conversation. Normal affect and mood. Does not appear depressed or anxious during encounter. Vascular: Dorsalis pedis and posterior tibial pulses palpable as b/l Capillary Fill time < 5 seconds to digits 1-5 b/l Skin temperature warm to warm proximal to distal b/l Hair growth present to digits Neurological: intact light touch/epicritic sensation b/l intact protective sensation no significant neurological deficits Dermatological: Nails 1-5 b/l appear normal. Webspaces clean and dry 1-4 b/l. Skin appears well hydrated and supple. good color, texture, turgor. No open lesions present. No callosities present. Musculoskeletal/Orthopaedic: Patient has pain to palpation of b/l midfoot. Patient has more pain to left foot. Pain located to navicular cun joint and tarsal metatarsal joint Foot type is neutral structurally AJ ROM is decreased with knee extended and flexed (more content not included)... [facility] 05-19-2024 History of Present illness Narrative Images from the original note were not included. Initial Podiatric Office Visit: Chief Complaint: This 63 year old male who presents with chief complaint:b/l foot pain HPI Patient presents to clinic for evaluation of b/l feet He has pain along the top of both feet L>R Patient states the pain has been present for a couple of months If the pain is severe, he will take ibuprofen. Patient states the pain is constant, worse with activity. PAIN EVALUATION 05/19/2024 1339 Pain Level: 7 Pain Location: Other: See Comment bilateral feet Description: Aching Duration Amount of Time: -- few Duration Units: Months Frequency: Continuous Intervention/Comfort measure: Relaxation;Reposition Hemoglobin A1C (%) Date Value 06/02/2022 5.3 PCP: Kimani Gentile MD, MD PAST MEDICAL HISTORY No date: Essential hypertension, benign Current Outpatient Medications Medication Sig traZODone (DESYREL) 50 mg tablet Take 1 tablet by mouth daily at bedtime. cetirizine HCl/pseudoephedrine (ZYRTEC-D ORAL) Take by mouth. AM gabapentin (NEURONTIN) 600 mg tablet Take 1 tablet at 5PM, 1 tablet at 8PM, and 1.5 tabs at 11PM. (Patient taking differently: 600 mg. OF 12/2023 taking Gabapentin x1 tablet 5:00 PM, x1 tablet 8:00 PM, x1.5 tablet 10:30 - 11:00 PM.) losartan (COZAAR) 100 mg tablet Take 100 mg by mouth once daily. [id number] ORAL Take 1,290 mg by mouth once daily. vitamin D3-folic acid 2,500 unit- 1 mg tab Take 2,000 Units by mouth once daily. famotidine(PEPCID AC 10 MG TAB) Take one(1) tablet daily. aspirin(HALFPRIN 81 MG TAB) Take one(1) tablet daily. No current facility-administered medications for this visit. ALLERGIES Allergen Reactions Naproxen Other: See Comments PAST SURGICAL HISTORY No date: PAST SURGICAL HISTORY OF Comment: carpal tunnel both wrist No date: PAST SURGICAL HISTORY OF Comment: partial amputation right thumb No date: PAST SURGICAL HISTORY OF Comment: tubes left ear as child No date: TONSILLECTOMY & ADENOIDECTOMY <AGE 13 FAMILY HISTORY Problem Relation Age of Onset Alzheimer's Disease Paternal Grandfather Arthritis Mother Arthritis Father Arthritis Maternal Grandmother Arthritis Maternal Grandfather Arthritis Paternal Grandmother Arthritis Paternal Grandfather Cancer Father prostate Cancer Paternal Grandfather prostate Heart Father Heart Paternal Grandmother Heart Maternal Grandfather Hypertension Mother Hypertension Father Hypertension Maternal Grandmother Hypertension Maternal Grandfather Hypertension Paternal Grandmother Hypertension Paternal Grandfather Diabetes Father Type II Social History Tobacco Use Smoking status: Former Packs/day: 1 Types: Cigarettes Tobacco comments: one pack per day Vaping Use Vaping Use: Never used Substance Use Topics Alcohol use: Yes Comment: rare Drug use: Not Currently Types: Marijuana REVIEW OF SYSTEMS GENERAL: Negative for Malaise, significant weight loss, fever RESPIRATORY: Negative for cough, wheezing and shortness of breath CARDIOVASCULAR: Negative for chest pain, leg swelling and palpitations GI: Negative for abdominal discomfort, blood in stools or black stools and change in bowel habits : Negative for dysuria, frequency and incontinence MUSCULOSKELETAL: Negative for joint pain or swelling, back pain, and muscle pain. SKIN: Negative for lesions, rash, and itching. HEMATOLOGY/LYMPHOLOGY Negative for prolonged bleeding, bruising easily, and swollen nodes. ENDOCRINE: Negative for cold or heat intolerance, polyuria, polydipsia and goiter. NEURO: negative Physical Exam: Constitutional: Pt is a well developed 63 year old male who is alert, oriented and cooperative Eyes: Following during examination. No redness or drainage. Respiratory: RR normal and nonlabored. Even breathing. No evidence of distress or shortness of breath. Psychology: Patient is engaged during conversation. Normal affect and mood. Does not appear depressed or anxious during encounter. Vascular: Dorsalis pedis and posterior tibial pulses palpable as b/l Capillary Fill time < 5 seconds to digits 1-5 b/l Skin temperature warm to warm proximal to distal b/l Hair growth present to digits Neurological: intact light touch/epicritic sensation b/l intact protective sensation no significant neurological deficits Dermatological: Nails 1-5 b/l appear normal. Webspaces clean and dry 1-4 b/l. Skin appears well hydrated and supple. good color, texture, turgor. No open lesions present. No callosities present. Musculoskeletal/Orthopaedic: Patient has pain to palpation of b/l midfoot. Patient has more pain to left foot. Pain located to navicular cun joint and tarsal metatarsal joint Foot type is neutral structurally AJ ROM is decreased with knee extended and flexed 1st MPJ is full when loaded and no pain or crepitus are noted with ROM. MTJ, STJ are full and free of pain and crepitus. +5/5 muscle strength dorsiflexion, plantarflexion, inversion, eversion b/l Radiographs: 3 views b/l foot ordered May 19, 2024: I have personally reviewed and interpreted these XR myself: arthritis of b/l midfoot, more pronounced on left ASSESSMENT: (M19.071, M19.072) Arthritis of both midfeet (primary encounter diagnosis) PLAN: 1. History and physical examination performed. 2. XR reviewed with patient and interpreted today 3. Discussed pain in b/l midfoot. Recommend powerstep inserts. Consider mobic pending CMP. If pain continues, could consider xray guided injection Enrique Worthy DPM Podiatry [address] [facility] [address] Dept: [phone] Dept AMB ROOMING INTAKE FLOWSHEET DATA Pain Pain Level: 7 Pain Location: Other: See Comment (bilateral feet) Description: Aching Duration Amount of Time: (few) Duration Units: Months Frequency: Continuous Intervention/Comfort measure: Relaxation, Reposition Patient presents with: Left Foot - New, Pain, Swelling Right Foot - New, Pain Patient presents for bilateral foot pain and swelling to top of left foot. States that the foot pain has been ongoing for a long time, and swelling began a few months ago. Pain worse after he has been up walking, states that he is unable to take long walks due to the pain. XR prior to appointment. documented in this encounter [facility] 05-19-2024 Note HNO ID: [id number] Author: ZONIA MALONEY RN Service: ? Author Type: Registered Nurse Type: Progress Notes Filed: 05/20/2024 07:22 Note Text: AMB ROOMING INTAKE FLOWSHEET DATA Pain Pain Level: 7 Pain Location: Other: See Comment (bilateral feet) Description: Aching Duration Amount of Time: (few) Duration Units: Months Frequency: Continuous Intervention/Comfort measure: Relaxation, Reposition Patient presents with: Left Foot - New, Pain, Swelling Right Foot - New, Pain Patient presents for bilateral foot pain and swelling to top of left foot. States that the foot pain has been ongoing for a long time, and swelling began a few months ago. Pain worse after he has been up walking, states that he is unable to take long walks due to the pain. XR prior to appointment. [facility] 05-19-2024 History of Present illness Narrative Radiology Service Progress Note PATIENT NAME: Maximino Gilmore DATE OF SERVICE: May 19, 2024 TIME: 1:19 PM PATIENT IDENTITY VERIFICATION COMPLETED USING TWO (2) IDENTIFIERS: Name and Date of confirmed by patient verbally. FALL SCREENING: Has the patient had 2 falls in the last year or 1 fall with injury or currently using an Ambulatory Assistive Device (Walker, Cane, Wheelchair, Crutches, etc.)? No PATIENT GENDER DATA: Male PATIENT RELEVANT IMPLANT DATA REVIEWED: Yes PATIENT PRESENTS WITH AN IMPLANTABLE OR ATTACHED LIGHT ARMORED RECONNAISSANCE OFFICER: No RADIOLOGY DEPARTMENT: General X-ray: Exam(s) Completed: Lower Extremity X-Ray(s): Foot, Bilateral PERIPHERAL IV DATA: Not applicable SIGNED BY: RT Sonal(Harper) May 19, 2024 1:19 PM documented in this encounter [facility] 05-19-2024 Note HNO ID: [id number] Author: CURTIS AYALA RT(R) Service: ? Author Type: Machine Operator Assistant Type: Progress Notes Filed: 05/19/2024 13:20 Note Text: Radiology Service Progress Note PATIENT NAME: Maximino Gilmore DATE OF SERVICE: May 19, 2024 TIME: 1:19 PM PATIENT IDENTITY VERIFICATION COMPLETED USING TWO (2) IDENTIFIERS: Name and Date of confirmed by patient verbally. FALL SCREENING: Has the patient had 2 falls in the last year or 1 fall with injury or currently using an Ambulatory Assistive Device (Walker, Cane, Wheelchair, Crutches, etc.)? No PATIENT GENDER DATA: Male PATIENT RELEVANT IMPLANT DATA REVIEWED: Yes PATIENT PRESENTS WITH AN IMPLANTABLE OR ATTACHED LIGHT ARMORED RECONNAISSANCE OFFICER: No RADIOLOGY DEPARTMENT: General X-ray: Exam(s) Completed: Lower Extremity X-Ray(s): Foot, Bilateral PERIPHERAL IV DATA: Not applicable SIGNED BY: RT Sonal(Harper) May 19, 2024 1:19 PM [facility] 03-07-2024 History of Present illness Narrative Images from the original note were not included. [facility] Follow up/ Established patient visit Date of last visit : 12/14/23 The following Impression/Plan was copied and pasted from the patient's last [facility] visit on 12/14/23: ASSESSMENT/PLAN: 1. RLS (restless legs syndrome) - ICD9: 333.94, ICD10: G25.81 (primary diagnosis) For RLS symptoms occurring earlier, will attempt to adjust timing and dosing of Gabapentin with pt now taking 600mg at 5PM and 8PM (to prevent symptoms of RLS building up prior to any treatment) and 900mg at 11PM (just prior to bedtime). SE and ADRs reviewed with pt. 2. Insomnia, unspecified type - ICD9: 780.52, ICD10: G47.00 Besides RLS, also with racing thoughts at night. Will consider CBTi in future but for now will place on trial of Trazodone 50mg QHS to see if allows patient to fall asleep quicker and sleep longer. SE and ADRs reviewed with pt. 3. Snoring - ICD9: 786.09, ICD10: R06.83 Once sleeping better (with above treatments) patient should undergo HSAT to evaluate for possible underlying MATTIE. Will reevaluate at time of next visit. 1Discussed with patient: the physiology of OSAS, medical conditions associated with OSAS (DM, HTN, CAD, Depression, Stroke, Headache...) and treatment options (UPPP, Dental appliances, CPAP...). Advised patient to avoid activities that could harm self or others when tired/sleepy, including driving and/or operating heavy machinery. Encouraged weight loss, and continued compliance with other medications. Discussed importance of good sleep hygiene. Pt agrees with above plan. Kendell Gambino MD Here for follow up for RLS, insomnia. He reports improvement in both. RLS starts around 830-9 pm, about 2 nights per week still. Takes gabapentin 600 mg at 5 pm and 8 pm, and takes gabapentin 900 mg at 1030-11 pm which is his bedtime, notes mild dizziness but no falls from it, says it is tolerable. Gabapentin 600 mg #315 last filled 12/15/23 PDMP website checked and validated. All prescriptions have been APPROPRIATELY filled. No suspicious activity was identified. 03/07/2024 by Dana Kraus APRN.EKG/ECG TECHNICIAN Takes trazodone 50 mg at HS, no adverse effects, that was started at his last visit, it is effective, falling asleep very quickly. Previously had tried clonazepam and ambien. No EDS. SLEEP HYGIENE QUESTIONS: Bedtime : 1030-11 pm Wake up Time : 630-8 am Time it takes to fall sleep : quick Number of times patient wakes up per night : none Estimated total sleep time ( in a 24 hour period of time) : 7.5 or more Naps : No PATIENT-ENTERED QUESTIONNAIRE SLEEP SCORES 09/18/2022 PROMIS [employer] - (T-Scores - the mean of general population = 50. Five points is a clinically meaningful difference.) Physical T-Score 54.1 Mental T-Score 56 ALLERGIES Allergen Reactions Naproxen Other: See Comments CURRENT MEDICATIONS: cetirizine HCl/pseudoephedrine (ZYRTEC-D ORAL) Take by mouth. AM gabapentin (NEURONTIN) 600 mg tablet Take 1 tablet at 5PM, 1 tablet at 8PM, and 1.5 tabs at 11PM. (Patient taking differently: 600 mg. OF 12/2023 taking Gabapentin x1 tablet 5:00 PM, x1 tablet 8:00 PM, x1.5 tablet 10:30 - 11:00 PM.) traZODone (DESYREL) 50 mg tablet Take 1 tablet by mouth daily at bedtime. losartan (COZAAR) 100 mg tablet Take 100 mg by mouth once daily. [id number] ORAL Take 1,290 mg by mouth once daily. vitamin D3-folic acid 2,500 unit- 1 mg tab Take 2,000 Units by mouth once daily. famotidine(PEPCID AC 10 MG TAB) Take one(1) tablet daily. aspirin(HALFPRIN 81 MG TAB) Take one(1) tablet daily. PHYSICAL EXAMINATION: Vital Signs: BP 118/66 Pulse 81 Resp 16 Wt 108.9 kg (240 lb) SpO2 94% PHYSICAL EXAM: General appearance: pleasant, NAD Mental status: alert and oriented, able to provide own history Skin: No visible rashes on exposed skin Neuro: No focal deficits observed, no tremors IMPRESSION: Rls (restless legs syndrome) (primary encounter diagnosis) Vitamin d deficiency Maximino Gilmore is a 63 year old male with RLS and vitamin D deficiency, insomnia. PMH of pruritic disorder of scalp. Pleased to have made good progress with RLS and insomnia. PLAN: Try gabapentin 600 mg at 4 and 7 pm to try prevent the evening sxs and keep 900 mg HS dose Continue trazodone 50 mg at HS Update labs today--iron stores and vitamin D Follow up 4 mos Can discuss possible sleep study for snoring at follow up visit Dana Kraus APRN.EKG/ECG TECHNICIAN documented in this encounter [facility] 12-01-2023 Miscellaneous Notes Pt notified that refill sent. Thank you 30 day RF provided. I spoke with pt and relayed results message from October ( he does not use [employer]) . He states that he will keep the appt with Dr Gambino but he will run out of the Gabapentin before then. Asking for a 2 week interim to hold him over until then. Thank you Requested Prescriptions Pending Prescriptions Disp Refills gabapentin (NEURONTIN) 300 mg capsule [Pharmacy Med Name: GABAPENTIN 300MG CAPS] 180 capsule 0 Sig: TAKE THREE CAPSULES BY MOUTH AT 8 P.M. AND TAKE THREE CAPSULES AT BEDTIME Last office visit:02-19-23 Future appt: 12-14-23 with Kendell Gambino documented in this encounter [facility] 09-24-2023 Miscellaneous Notes Telephone call to patient, name and birthday verified, patient advised of provider's message and verbalizes understanding. PDMP website checked and validated. All prescriptions have been APPROPRIATELY filled. No suspicious activity was identified. September 24, 2023 Rachelle Hunter APRN.CNP Lab work ordered for monitoring. Pharmacy requesting refill via Mychart . Last OV: 02/19/2023 Future OV: 12/14/[address] Gambino Last prescribed: 08/25/2023 Requested Prescriptions Pending Prescriptions Disp Refills gabapentin (NEURONTIN) 300 mg capsule [Pharmacy Med Name: GABAPENTIN 300MG CAPS] 180 capsule 0 Sig: TAKE THREE CAPSULES BY MOUTH AT 8 P.M. AND TAKE THREE CAPSULES AT BEDTIME documented in this encounter [facility] 08-26-2023 Miscellaneous Notes Spoke with patient (verified name and date of ). Scheduled patient for first available follow up with Dr. Gambino on 12/14/2023 at 1400 in [place]. Patient was added to the wait list as well in case an earlier appointment was made available. LVM for patient to call back office to schedule follow up appointment. Patient has been identified by name and date of : Yes Pharmacy phones for refill(s): Requested Prescriptions Pending Prescriptions Disp Refills gabapentin (NEURONTIN) 300 mg capsule [Pharmacy Med Name: GABAPENTIN 300MG CAPS] 180 capsule 2 Sig: TAKE 3 CAPSULES BY MOUTH AT 8 P.M. AND AT BEDTIME Date of last office visit in primary care: 02/19/2023 with KD Date of next office visit in primary care: Visit date not found Last 2 Encounter Wt Readings: Date: Wt: 02/19/2023 107.1 kg (236 lb 3.2 oz) 06/02/2022 102.2 kg (225 lb 3.2 oz) Please advise. Thank you. CHARLI Stein. documented in this encounter [facility] 02-19-2023 History of Present illness Narrative Images from the original note were not included. [facility] [place] Follow-up Visit Follow-up note February 19, 2023 HPI: Mr. Gilmore presents today for a follow-up visit. Per his previous visit with Dr. Gambino on 06/02/22: ASSESSMENT/PLAN: 1. RLS (restless legs syndrome) - ICD9: 333.94, ICD10: G25.81 (primary diagnosis) Patient with subjective history strongly supportive of RLS. Objectively, patient constantly moving his legs while seated. Question if prior use of Requip may have resulted in Augmentation. Symptoms quite significant and current meds having no effect. Concern also is symptoms starting around 7-8PM and pt not taking meds until hours later. Discussed with pt dx, etiology, physiology, med conditions associated and treatment options. Does have possible neuropathy based on exam further exacerbating RLS (see #2). Will check Ferritin and Fe levels to eval for Fe deficiency as contributing to symptoms. For treatment, will start gabapentin 300mg at 8PM and bedtime that can be titrated up to 600mg at 8PM and QHS and then 900mg at 8PM and QHS if needed. Recent labs show normal renal function. Encouraged pt to avoid ETOH prior to bedtime. 2. Neuropathy - (NOS) - ICD9: 355.9, ICD10: G62.9 Loss of sensation in distal lower exts. Possible early neuropathy. Note no symptoms - RLS symptoms separate condition. Will check common causes of neuropathy including thyroid, B12, A1c, SPEP. If unremarkable will continue to monitor and consider further workup based on progression. Pt not wanting EMG/NCV. Gabapentin has been helping his RLS. If he misses a dose he can tell that he missed his dose. As long as he is taking it he has no issues. Taking at 8pm and at bedtime. 900mg. Denies lightheadedness, leg swelling, or drowsiness. No symptoms during the day. Not yelling out in his sleep or acting out dreams. Still has numbness and tingling in his feet. Not worse but also not better. 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 Needs fusion on L as well. No change in n/t with gabapentin. After working all day can have pain. Never hurt at night. Do not hurt in the AM. Denies weakness, tripping, falling. Was drinking one drink at night but no longer doing this. Has been one week since he stopped. Denies back pain, vision changes, speech changes, tremor, BOBBY. PAST MEDICAL HISTORY Diagnosis Date Essential hypertension, benign PAST SURGICAL HISTORY Procedure Laterality Date PAST SURGICAL HISTORY OF carpal tunnel both wrist PAST SURGICAL HISTORY OF partial amputation right thumb PAST SURGICAL HISTORY OF tubes left ear as child TONSILLECTOMY & ADENOIDECTOMY <AGE 13 Current Outpatient Medications on File Prior to Visit Medication Sig gabapentin (NEURONTIN) 300 mg capsule 3 caps at 8PM and QHS. losartan (COZAAR) 100 mg tablet Take 100 mg by mouth once daily. [id number] ORAL Take 1,290 mg by mouth once daily. vitamin D3-folic acid 2,500 unit- 1 mg tab Take 2,000 Units by mouth once daily. mecobalamin (B12 ACTIVE ORAL) Take 500 mcg by mouth once daily. rOPINIRole (REQUIP) 4 mg tablet Take 4 mg by mouth daily at bedtime. FINASTERIDE ORAL Take 5 mg by mouth once daily. clonazePAM (KLONOPIN) 0.5 mg tablet Take 1 tab if not asleep within 30 minutes of going to bed. VARENICLINE 0.5 MG TAB Take one(1) tablet two(2) times daily. (Patient not taking: Reported on 06/02/2022) zolpidem tartrate(AMBIEN 10 MG TAB) Take one(1) tablet at bedtime as needed for insomnia. (Patient not taking: Reported on 06/02/2022) MINOCYCLINE 100 MG CAP Take one(1) tablet two(2) times daily. (Patient not taking: Reported on 06/02/2022) COMPOUNDED PRESCRIPTION selenium sulfide shampoo 2.5% Use every other day to once a week. Alternate with Loprox shampoo. (Patient not taking: Reported on 06/02/2022) cephalexin monohydrate(KEFLEX 500 MG CAP) Take one(1) capsule po two(2) times per day for 2 weeks (Patient not taking: Reported on 06/02/2022) clobetasol propionate(CLOBEX 0.05 % SHAMPOO) Shampoo entire seborrheic dermatitis-involved scalp area with a 15 min soak in as directed qday to qoday as tolerated for up to 2-4wks, then can taper as able when much improved to qwk or less prn itching. (Patient not taking: Reported on 06/02/2022) ciclopirox(LOPROX 1 % SHAMPOO) Use as directed to cleanse scalp qod for 2-4 weeks and then can taper to qwk as able (Patient not taking: Reported on 06/02/2022) valsartan/hydrochlorothiazide(DIOV AN HCT 80 MG-12.5 MG TAB) Take one(1) tablet daily. famotidine(PEPCID AC 10 MG TAB) Take one(1) tablet daily. aspirin(HALFPRIN 81 MG TAB) Take one(1) tablet daily. ketoconazole(NIZORAL 2 % SHAMPOO) Cleanse scalp qod-qday x 2-4 weeks and then can taper toward qwk as able when rash is better, as tolerated (Patient not taking: Reported on 06/02/2022) FLUOCINONIDE 0.05 % TOPICAL SOLN Apply to itching scalp dermatitis areas selectively qday to bid prn and can taper as able when much improved. AVOID face and eyes/eyelids, and deep fold areas. (Patient not taking: Reported on 06/02/2022) No current facility-administered medications on file prior to visit. Social History Tobacco Use Smoking status: Former Packs/day: 1.00 Types: Cigarettes Tobacco comments: one pack per day Substance Use Topics Alcohol use: No ALLERGIES Allergen Reactions Naproxen Other: See Comments Review of Systems: Cardiopulmonary: denies chest pain, palpitations Respiratory: denies shortness of breath GI/: denies recent nausea, vomiting, diarrhea, constipation, incontinence Musculoskeletal: denies weakness Back/spine: denies low back or cervical pains Neuro: denies tremors, loss of feeling, dizziness, seizure, blackout, + paresthesia, facial paresthesia, facial weakness, difficulty in speech, slurring of words, dysarthria, dysphagia, memory loss, headache, vision changes Physical Exam: 02/19/23 1342 BP: 153/74 Pulse: 81 Resp: 16 Temp: 36.6 C (97.8 F) SpO2: 94% Weight: 107.1 kg (236 lb 3.2 oz) Patient is alert and in no distress. Dress is appropriate. Mood is appropriate Breathing appears regular and unstressed Neurologic examination: Cognitively intact. No deficits. No formal MMSE performed. CN: Pupils equal and reactive to light, extraocular movements intact with no nystagmus, face is symmetric with no facial droop, hearing intact bilaterally, symmetric evaluation of the soft palate, tongue is midline with no deviation, shoulder shrug is symmetric. Motor exam shows 5/5 strength symmetric through the upper and lower extremities in all groups tested. Sensory intact to light touch and temperature in all extremities. Vibratory sensation is intact and symmetric all extremities. Pinprick sensation intact above the ankles bilaterally. Decreased in toes per previous OV. Deep tendon reflexes are brisk and symmetric at the biceps, brachioradialis, triceps, patella, and achilles bilaterally. Coordination: No dysmetria on finger to nose. No tremors noted. No drift seen. Gait normal in stance and pattern. Negative Romberg. Labs/studies: Component Latest Ref Rng & Units 06/02/2022 Albumin 3.37 - 4.23 g/dL 4.11 Alpha 1 Globulin 0.18 - 0.31 g/dL 0.18 Alpha 2 Globulin 0.52 - 0.97 g/dL 0.69 Beta Globulin 0.84 - 1.36 g/dL 0.97 Gamma Globulin 0.70 - 1.44 g/dL 0.85 Interpretation (Prot Electro) No definitive M protein is identified on protein electrophoresis. No definitive M protein is identified on protein electrophoresis. M-Protein Location M-Protein Concentration <=0.00 g/dL 0.00 SPE Staff Review Reviewed by Wisam Cuevas MD, Ph.D ([id number]) Iron 41 - 186 ug/dL 79 TIBC 232 - 386 ug/dL 301 Transferrin Saturation 15.0 - 57.0 % 26.2 Hemoglobin A1C 4.3 - 5.6 % 5.3 Estimated Average Glucose mg/dL 105 TSH 0.270 - 4.200 mIU/L 2.140 Free T4 0.9 - 1.7 ng/dL 1.2 Vitamin B12 232 - 1,245 pg/mL 972 Ferritin 30.3 - 565.7 ng/mL 222.0 Protein, Total 6.3 - 8.0 g/dL 6.8 Assessment/Plan: G25.81 RLS (restless legs syndrome) (primary encounter diagnosis) Comment: Pt with hx of symptoms suggestive of RLS. Iron studies completed and unremarkable as etiology. Sx likely also exacerbated by neuropathy. Currently treated with use of gabapentin 900mg at 8PM and again at bedtime. He reports symptoms are well managed with current dose. No sx during the daytime. Will continue as previously prescribed. He reports recent lab work completed through PCP and have asked him to fax results for review. RF provided. G62.9 Neuropathy - (NOS) Comment: Sensory changes in BLE suggestive of peripheral neuropathy. Workup completed including TSH, B12, A1C, SPEP all unremarkable. Today, he reports no change in sx. Again, revisited option of completing EMG/NCV for further evaluation, however, as symptoms and exam remain unchanged will defer at this time. If progression of sx at time of follow up appointment can consider completing at that time. Rachelle Hunter APRN.JO I spent a total of 26 minutes on the date of the service which included preparing to see the patient, [id number] patient care, completing clinical documentation, obtaining and/or reviewing separately obtained history, performing a medically appropriate examination, counseling and educating the patient/family/caregiver, and ordering medications, tests, or procedures. PDMP website checked and validated. All prescriptions have been APPROPRIATELY filled. No suspicious activity was identified. February 19, 2023 Rachelle Hunter APRN.EKG/ECG TECHNICIAN documented in this encounter [facility] 12-29-2022 Miscellaneous Notes Spoke with pt about refill let him know it was filled but he needed an appointment, pt was agreeable to making appt with other provider in the office. Carrie Garcia LPN Will provide 1 month supply but pt needs follow up MARIN. Also needs updated labs. No additional Rx without follow up. Kendell Gambino MD PDMP website checked and validated. All prescriptions have been APPROPRIATELY filled. No suspicious activity was identified. 12/29/2022 by Kendell Gambino MD Patient calling he took his last dose of Gabapentin last night has none for today patient said he takes 3 at 830 pm and 3 at bedtime. Patient said medication is helping. Please advise Patient has been identified by name and date of : Patient phones for refill(s): Requested Prescriptions Pending Prescriptions Disp Refills gabapentin (NEURONTIN) 300 mg capsule 180 capsule 2 Sig: Take 1 cap at 8PM and QHS x3 days. If sx not improved and no SE, can increase to 2 caps at 8PM and QHS. If still sxs can increase to 3 caps at 8PM and QHS. Date of last office visit in primary care: 06/02/2022, no future appt scheduled Last 2 Encounter Wt Readings: Date: Wt: 06/02/2022 102.2 kg (225 lb 3.2 oz) Previous labs/tests for medication: Not applicable Please advise. Thank you. Shawanda Hunt LPN documented in this encounter [facility] 09-08-2022 Miscellaneous Notes Please clarify how much gabapentin patient is using. Has filled #180 x3 since last seen per PDMP and at most should be taking 3 caps QHS. Thank you, Kendell Gambino MD Last Office Visit: 06/02/2022 Future Office Visit: 09/19/2022 Requested Prescriptions Pending Prescriptions Disp Refills gabapentin (NEURONTIN) 300 mg capsule 180 capsule 2 Sig: Take 1 cap at 8PM and QHS x3 days. If sx not improved and no SE, can increase to 2 caps at 8PM and QHS. If still sxs can increase to 3 caps at 8PM and QHS. Date of Last Labs: 06/02/2022 documented in this encounter [facility] 06-02-2022 History of Present illness Narrative NEW PATIENT (CONSULT) HISTORY AND PHYSICAL EXAM PRIMARY CARE PHYSICIAN: Kimani Gentile MD REASON FOR CONSULT: RLS REFERRING PHYSICIAN: MD Main CHIEF COMPLAINT: RLS Consultation requested by MD Main for an opinion regarding chief complaint of Patient presents with: Restless Leg Syndrome and my final recommendations will be communicated back to the requesting physician by way of shared medical record or letter via US mail. HISTORY OF PRESENT ILLNESS: Maximino Gilmore is a 62 year old male, with past med hx significant for RLS for years, but worse over past 2 years. States he is now constantly moving his legs in his sleep. Symptoms worse in the evening and as soon as sits down in recliner at 8PM it starts up. At work while up on feet, does not bother him. No family history of RLS. Started Requip about 6 months ago titrated from 1mg to 4mg - as dose was increasing so were symptoms. Just recently started on gabapentin 300mg QHS. Normally goes to bed between 11PM and 12 AM, tossing and turning due to difficulties getting comfortable. Never had a sleep study. Feels better if up and walking around. No snoring. No witnessed apneas. States was on Ambien years ago but for RLS. RLS can spread to arms. Never had Fe levels checked. No back injuries or back pain. 1 Beer per night. REVIEW OF SYSTEMS GENERAL:No weight loss, malaise or fevers. HEENT:Negative for frequent or significant headaches, No changes in hearing or vision, no nose bleeds or other nasal problems NECK:Negative for lumps, goiter, pain and significant neck swelling RESPIRATORY: Negative for cough, wheezing or shortness of breath. CARDIOVASCULAR: Negative for chest pain, leg swelling or palpitations. GASTROINTESTINAL: Negative for abdominal discomfort, blood in stools or black stools or change in bowel habits GENITOURINARY: No history of dysuria, frequency or incontinence MUSCULOSKELETAL: Negative for joint pain or swelling, back pain or muscle pain. NEUROLOGIC:Negative for focal numbness or weakness, headaches and dizziness or syncope, vision changes, speech/language changes, changes in gait or falls -- besides those complaints as above in HPI. SKIN:Negative for lesions, rash, and itching. HEMATOLOGIC/LYMPHATIC/IMMUNOLOGIC: Negative for prolonged bleeding, bruising easily or swollen nodes. ENDOCRINE: Negative for cold or heat intolerance, polyuria, polydipsia and goiter. The remainder of the ROS was reviewed and is negative. LAB/IMAGING: Reviewed and include: No results found for: WBC, RBC, HB, HCT, MCV, MCH, MCHC, RDWCV, PLT, MPV, GLUC, BUN, CREAT, NA, K, CHLOR, CO2, TPROT, ALB, CA, ALKPHOS, TBILI, AST, ALT, DOT, ESRMM, SSA, SSB, CRYO, CRYOQ, RF, AHBSQ, HEPCABEIA URINALYSIS No results found for: PH, SPGR, UGLUC, UBILI, UKET, UHB, UPROT, UROBIL, UWBC, SSA (See scan from PCP) MEDICATIONS: losartan (COZAAR) 100 mg tablet Take 100 mg by mouth once daily. [id number] ORAL Take 1,290 mg by mouth once daily. vitamin D3-folic acid 2,500 unit- 1 mg tab Take 2,000 Units by mouth once daily. mecobalamin (B12 ACTIVE ORAL) Take 500 mcg by mouth once daily. rOPINIRole (REQUIP) 4 mg tablet Take 4 mg by mouth daily at bedtime. FINASTERIDE ORAL Take 5 mg by mouth once daily. gabapentin (NEURONTIN) 300 mg capsule Take 300 mg by mouth once daily. valsartan/hydrochlorothiazide(DIOV AN HCT 80 MG-12.5 MG TAB) Take one(1) tablet daily. famotidine(PEPCID AC 10 MG TAB) Take one(1) tablet daily. aspirin(HALFPRIN 81 MG TAB) Take one(1) tablet daily. VARENICLINE 0.5 MG TAB Take one(1) tablet two(2) times daily. (Patient not taking: Reported on 06/02/2022) zolpidem tartrate(AMBIEN 10 MG TAB) Take one(1) tablet at bedtime as needed for insomnia. (Patient not taking: Reported on 06/02/2022) MINOCYCLINE 100 MG CAP Take one(1) tablet two(2) times daily. (Patient not taking: Reported on 06/02/2022) COMPOUNDED PRESCRIPTION selenium sulfide shampoo 2.5% Use every other day to once a week. Alternate with Loprox shampoo. (Patient not taking: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
== END | disposition home or self-care (01) ==
LOC: US 17:50
PROVIDERS: PCP Family Medicine; Referring Provider Family Medicine; Visit Provider Family Medicine
DX: E04.1 Nontoxic single thyroid nodule (principal)
CPT/HCPCS: 76536

== ENCOUNTER → 2025-06-23 | Outpatient (CLI) | payer BC, SELFPAY ==
[2025-06-23 12:58] LABS: Hematocrit 43.1 % (40-54); Hemoglobin 14.1 g/dL (13.0-16.5); Immature Granulocytes Count 0.040 X10^3/uL (0.0-0.0); Mean Corp Hgb Conc 32.7 g/dL (32-36); Mean Corpuscular Volume 93.1 fL (80-94); Mean Platelet Vol. 9.8 fl (6.2-12.0); NRBC Flagged by Analyzer 0 % (0-5); Platelet Count 304 K/mm3 (150-450); RBC Distribution Width CV 12.9 % (11.6-14.6); RBC Distribution Width SD 44.1 fl (35.1-43.9); Red Blood Count 4.63 M/mm3 (4.6-6.2); White Blood Count 9.5 K/mm3 (4.4-11.0)
[2025-06-23 13:40] LABS: AST(SGOT) 27 U/L (<=37); Alanine Aminotransfer ALT/SGPT 34 U/L (<=46); Albumin, Serum 4.3 g/dL (3.4-4.8); Alkaline Phosphatase 103 U/L (40-129); Anion Gap 12 (5-15); BUN 18 mg/dL (4-19); BUN/Creat Ratio 23.2 RATIO (10-20); Calcium,Total 10.3 mg/dL (7.6-11.0); Carbon Dioxide 21.3 mmol/L (21.0-32.0); Chloride 104 mmol/L (98-108); Cholesterol 168 mg/dL (<=200); Globulin 2.5 g/dL (2.2-4.2); Glucose 109 mg/dL (70-99); Low Density Lipoprotein Calc. 108 mg/dL; Potassium 4.3 mmol/L (3.3-5.1); Triglycerides 94 mg/dL; Very Low Density Lipoprotein 19 mg/dL (5-40); cholesterol:hdl ratio screen 4.06
[2025-06-23 14:03] LABS: PSA,Total - Annual Screen 0.40 ng/mL (0.02-4.00)
== END | disposition home or self-care (01) ==
LOC: MFPLAB 10:33
PROVIDERS: PCP Family Medicine; Visit Provider Family Medicine
DX: I10 Essential (primary) hypertension (principal); Z12.5 Encounter for screening for malignant neoplasm of prostate; R73.02 Impaired glucose tolerance (oral)
CPT/HCPCS: 36415; 80053; 80061; 83036; 84153; 85025; G0103

== ENCOUNTER → 2025-07-06 | Outpatient (CLI) | payer BC, SELFPAY ==
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
== END | disposition home or self-care (01) ==
LOC: CVS 08:43
PROVIDERS: PCP Family Medicine; Referring Provider Family Medicine; Visit Provider Family Medicine
DX: R09.89 Other specified symptoms and signs involving the circulatory and respiratory systems (principal)
CPT/HCPCS: 93924